=== PATIENT | male | born 1930 | race African-American/Black ===

== ENCOUNTER 2018-09-02 06:05 | Inpatient (IN) ==
[2018-09-02] MEDS ORDERED: Heparin 10,000 UNITS/10 ML Vial (for IV use) IV.PUSH STA (06:19)
[2018-09-02] MEDS ORDERED: Nitroglycerin Drip Premix 50 MG/250 ML BOTTLE IV.CONT PRN ×2 (06:29→12:30)
[2018-09-02] MEDS ORDERED: Sod Chloride 0.9% Inj 1,000 ML IV.SIG SCH (06:30)
--- NOTE | 2018-09-02 06:36 | XR ---
EXAM DATE: 09/02/2018 6:34 AM EST AGE/SEX: 88 years / Male INDICATIONS: Difficulty breathing today. CLINICAL DATA: This is the patient's initial encounter. Patient reports that signs and symptoms have been present for 1 day and indicates a pain score of Nonresponsive. MEDICAL/SURGICAL HISTORY: Non-responsive. Non-responsive. COMPARISON: No prior exams available for comparison. FINDINGS: The heart size is enlarged. The lungs demonstrate diffuse consolidation. There is blunting of the cos tophrenic angles bilaterally. CONCLUSION: Diffuse consolidation likely related to diffuse processes such as edema. Blunting of the costophrenic angles suggestive of mild effusions. Electronically signed by: Law Bills MD Board Certified Radiologist 09/02/2018 6:35 AM EST
[2018-09-02 06:42] LABS: Baso % (Auto) 0.4 % (0.0-2.0); Eos # (Auto) 0.1 th/mm3 (0.0-0.4); Eos % (Auto) 2.3 % (0.0-4.0); Hematocrit 43.1 % (39.0-51.0); Hemoglobin 14.5 gm/dL (13.0-17.0); Lymph # (Auto) 3.2 th/mm3 (1.0-4.8); Mean Corpuscular HGB Conc 33.6 % (32.0-36.0); Mean Corpuscular Hemoglobin 28.9 pg (27.0-34.0); Mean Corpuscular Volume 85.9 fL (80.0-100.0); Mean Platelet Volume 8.8 fL (7.0-11.0); Mono # (Auto) 0.6 th/mm3 (0.0-0.9); Mono % (Auto) 9.8 % (0.0-8.0); Neut % (Auto) 33.5 % (16.0-70.0); Platelet Count 127 th/mm3 (150-450); Red Blood Count 5.01 mil/mm3 (4.50-5.90); White Blood Count 5.9 th/mm3 (4.0-11.0)
[2018-09-02 06:50] LABS: ABG Base Excess -1.5 mmol/L (-2-2); ABG PCO2 103 mmHg (38-42); ABG PO2 83 mmHg (61-120)
[2018-09-02 06:53] LABS: Prothrombin Time 10.5 sec (9.8-11.6)
[2018-09-02] MEDS ORDERED: Etomidate Inj 40 MG/20 ML Vial IV.PUSH ONE (06:56)
[2018-09-02 06:58] LABS: Alanine Aminotransferase 29 U/L (12-78); Albumin 3.9 g/dL (3.4-5.0); Anion Gap 6 meq/L (5-15); Aspartate Aminotransferase 31 U/L (15-37); Blood Urea Nitrogen 27 mg/dL (7-18); Calcium 8.4 mg/dL (8.5-10.1); Calcium 8.5 mg/dL (8.5-10.1); Carbon Dioxide 27.3 meq/L (21.0-32.0); Chloride 108 meq/L (98-107); Glomerular Filtration Rate 33 mL/min (>89); Glucose,Random 198 mg/dL (74-106); Magnesium 2.3 mg/dL (1.5-2.5); Potassium 4.2 meq/L (3.5-5.1); Sodium 141 meq/L (136-145)
[2018-09-02 07:01] LABS: Creatine Kinase 213 U/L (39-308); Troponin I 0.15 ng/mL (0.02-0.05)
[2018-09-02 07:02] LABS: Alkaline Phosphatase 101 U/L (45-117); Total Protein 8.8 g/dL (6.4-8.2); Troponin I 0.14 ng/mL (0.02-0.05)
[2018-09-02] MEDS ORDERED: Propofol 1000 mg/100 ml Inj 1,000 MG/100 ML BOTTLE IV.CONT PRN (07:11)
[2018-09-02 07:13] LABS: Creatine Kinase MB 1.8 ng/mL (0.5-3.6)
--- NOTE | 2018-09-02 07:40 | ED ---
HPI General Chief Complaint: Chest Pain Stated Complaint: Medical Time Seen by Provider: 09/02/18 06:12 Source: patient and other ([facility] staff) Mode of arrival: wheelchair Limitations: other History of Present Illness HPI narrative: 88-year-old male presents to the emergency department from hospital floor where he is visiting his hospitalized for evaluation of chest pain shortness of breath and marked diaphoresis. Patient with history of CHF. Patient with history of hypertension. No prior history of myocardial infarction. Patient with severe chest pain. Patient markedly dyspneic and diaphoretic. Patient unable to provide any further history. Patient admitted and placed on supplemental oxygen as identified to have low O2 saturations upon initial vital signs. Hospital staff presents with patient as patient's O2 saturation 87% with tachycardia tachypnea and hypertension. Son at bedside able to confirm history of hypertension CHF but otherwise does not know his father's medications. MD complaint: Reports chest pain STEMI Alert: Yes Onset (ago): minute(s) (30) Time: 05:15 Duration: constant and progressively worsening Onset: during rest Pain location: Reports left chest Severity: severe (unable to quantitate) Severity scale (1-10): 10 Quality: Reports other ("pain") Pain radiation: Reports none Relieving factors: nothing Exacerbating factors: nothing Context: Denies recent illness, recent surgery, recent immobilization, recent travel, trauma/injury, new medications and history of DVT/PE Associated symptoms: Reports diaphoresis (severe) and dyspnea (severe); Denies nausea, vomiting, sense of impending doom, syncope, palpitations, fever, cough and leg swelling Treatments prior to arrival chest pain: Reports none Related Data Home Medications Medication Instructions Recorded Confirmed amlodipine 5 mg PO DAILY 09/02/18 09/02/18 carvedilol 3.125 mg PO BID 09/02/18 09/02/18 furosemide [Lasix] 40 mg PO BID 09/02/18 09/02/18 glipizide 5 mg PO DAILY 09/02/18 09/02/18 levothyroxine [Synthroid] 88 mcg PO DAILY 09/02/18 09/02/18 potassium chloride 10 meq PO DAILY 09/02/18 09/02/18 Allergies Allergy/AdvReac Type Severity Reaction Status Date / Time aspirin Allergy Severe Bleeding Verified 09/02/18 16:03 diclofenac Allergy Severe Hives Verified 09/02/18 07:58 etodolac Allergy Severe Hives Verified 09/02/18 07:58 flurbiprofen Allergy Severe Hives Verified 09/02/18 07:58 ibuprofen Allergy Severe Hives Verified 09/02/18 07:58 indomethacin Allergy Severe Hives Verified 09/02/18 07:58 ketoprofen Allergy Severe Hives Verified 09/02/18 07:58 ketorolac Allergy Severe Hives Verified 09/02/18 07:58 naproxen Allergy Severe Hives Verified 09/02/18 07:58 NSAIDS (Non-Steroidal Allergy Severe Bleeding Verified 09/02/18 16:03 Anti-Inflamma oxaprozin Allergy Severe Hives Verified 09/02/18 07:58 Review of Systems ROS: all other systems reviewed are negative PMFSH Medical History Medical History CHF (congestive heart failure) (Acute) Diabetes (Acute) HTN (hypertension) (Acute) Hypothyroid (Acute) Lower extremity edema (Acute) Surgical History Surgical History History of gonzales (Acute) History of cholecystectomy (Acute) History of fusion of cervical spine (Acute) History of right inguinal hernia repair (Acute) Family History Family History Other Family history of CHF (congestive heart failure) Social History Social History Substance History: No History of Abuse Second Hand Smoke Exposure: No Smoking Status: Never smoker How Often Do You Have a Drink Containing Alcohol: Never Recent Travel in [facility] within the Last 8 Weeks: No Recent Out of Country Travel within the Last 8 Weeks: No Immunization History Tetanus Immunization: Unsure Exam Narrative Exam Narrative: GENERAL: Well-nourished, well-developed patient; in marked respiratory distress with significant diaphoresis and work of breathing unable to articulate/communicate except for simple nodding and occasional yes no answer. Room air O2 sat 87% with marked hypertensive blood pressure SKIN: Focused skin assessment warm/dry. HEAD: Normocephalic. EYES: No scleral icterus. No injection or drainage. NECK: Supple, trachea midline. No JVD or lymphadenopathy. CARDIOVASCULAR: Regular rate and rhythm without murmurs, gallops, or rubs. RESPIRATORY: Breath sounds equal bilaterally. No accessory muscle use. GASTROINTESTINAL: Abdomen soft, non-tender, nondistended. MUSCULOSKELETAL: No cyanosis, or edema. BACK: Nontender without obvious deformity. No CVA tenderness. Procedures Intubation Time Out Performed: Yes Sedative: etomidate Mg Given: 20 Paralytic: succinylcholine Mg Given: 10 Laryngoscope: Yaya ET Tube Size: 8 ET Tube Uncuffed: No Tube Secured Depth (cm): 24 Tube Secured Location: lips Tube Placement Confirmation: visualized tube passing through cords, equal breath sounds bilaterally, no breath sounds over epigastrium and confirmation by capnometry Patient Tolerated Procedure: well Intubation Complications: none Course Initial Documented Vital Signs Temperature 98.8 F 09/02/18 06:10 Pulse Rate 112 H 09/02/18 06:10 Respiratory Rate 40 H 09/02/18 06:10 Blood Pressure 226/135 H 09/02/18 06:10 Pulse Oximetry 87 L 09/02/18 06:10 Last Documented Vital Signs Temperature 97.9 F 09/07/18 04:00 Pulse Rate 66 09/07/18 04:00 Respiratory Rate 18 09/07/18 04:00 Blood Pressure 143/70 H 09/07/18 04:00 Pulse Oximetry 98 09/07/18 04:00 Critical Care Time Critical Care Time: Yes Total Critical Care Time: 40 Attestation: Aggregate critical care time was 40 minutes. Time to perform other separately billable procedures was not included in the critical care time. My time did not include minutes spent treating any other patients simultaneously or on activities that did not directly contribute to the patient's treatment. The services I provided to this patient were to treat and/or prevent clinically significant deterioration that could result in: Respiratory arrest, cardiogenic shock, I provided critical care services requiring my management, as noted below: Chart data review, documentation time, medication orders and management, vital sign assessments/reviewing monitor data, ordering and reviewing lab tests, ordering and interpreting/reviewing x-rays and diagnostic studies, care of the patient and discussion of the patient with the admitting physicians. Medical Decision Making MDM Narrative Medical decision making narrative: 88-year-old male in acute respiratory distress with marked diaphoresis diminished breath sounds with few scarce expiratory wheeze expiratory crackles. Patient presents and congestive heart failure with flash pulmonary edema with complaint of severe left-sided chest pain nonradiating. Patient with history of hypertension dyslipidemia and diabetes. EKG shows evidence of septal Q waves but ST elevation was noted in V2 and patient presents for acute coronary syndrome with CHF concerning for possible [place] STEMI alert was called and patient's case was discussed with on- call STEMI alert physician Dr. Vaca who has had a chance to review the EKG I does not feel that at this time patient meets stimulant criteria and states that at this time we will not take patient to Corporate Safety Manager and would like patient to proceed with management as initiated in the emergency department with IV nitroglycerin oxygen support Lasix therapy is aware patient is unable to take aspirin heparin will be initiated. Patient is on BiPAP and has not show any evidence of improvement ABG shows pH of 7.06 pCO2 103 pO2 83 0n 100% fio2; as patient was not improving and showing evidence of deterioration intubation was discussed with patient's by phone and son at bedside as patient is unable to make this decision at this time is determined that she would like to proceed with intubation. Patient tolerated procedure well chest x-ray shows worsening of vascular congestion and pulmonary edema. Patient's case discussed with biometrics instructor Dr. Vasquez who graciously accepts the patient for admission. Medical Screen Exam Complete: Yes Emergency Medical Condition: Yes Differential Diagnosis Differential Diagnosis: Acute respiratory failure, CHF, [place], hypertensive crisis , PE Medical Records Medical records reviewed: Yes I reviewed the patient's medical records. Lab Data Lab results reviewed: Yes I reviewed the patient's lab results. Result diagrams: 09/06/18 16:00 09/06/18 16:00 Lab Results 09/02/18 09/02/18 09/02/18 Range/Units 06:16 06:25 06:25 WBC 5.9 (4.0-11.0) th/mm3 RBC 5.01 (4.50-5.90) mil/mm3 Hgb 14.5 (13.0-17.0) gm/dL POC Hgb (Calc) (13.0-17.0) g/dL Hct 43.1 (39.0-51.0) % POC Hct (39-51.0) % MCV 85.9 (80.0-100.0) fL MCH 28.9 (27.0-34.0) pg MCHC 33.6 (32.0-36.0) % RDW 17.0 (11.6-17.2) % Plt Count 127 L (150-450) th/mm3 MPV 8.8 (7.0-11.0) fL Prelim Diff (Auto) Neut % (Auto) 33.5 (16.0-70.0) % Lymph % (Auto) 54.0 H (9.0-44.0) % [place] % (Auto) 9.8 H (0.0-8.0) % Eos % (Auto) 2.3 (0.0-4.0) % Baso % (Auto) 0.4 (0.0-2.0) % Neut # (Auto) 2.0 (1.8-7.7) th/mm3 Lymph # (Auto) 3.2 (1.0-4.8) th/mm3 [place] # (Auto) 0.6 (0.0-0.9) th/mm3 Eos # (Auto) 0.1 (0.0-0.4) th/mm3 Baso # (Auto) 0.0 (0.0-0.2) th/mm3 WBC Differential . Diff Scan Differential Comment Auto diff final Platelet Estimate (Normal) Platelet Morphology (Normal) Ovalocytes (None) PT (9.8-11.6) sec INR Ratio APTT (23.4-31.7) sec Puncture Site Patient Temperature O2 Saturation (90-100) % ABG pH (7.380-7.420) ABG pCO2 (38-42) mmHg ABG pO2 (61-120) mmHg ABG HCO3 (22-26) mmol/L ABG O2 Content (12.0-20.0) Vol % ABG Base Excess (-2-2) mmol/L ABG Methemoglobin (0-2) % Jairo Test Hemoglobin (12.0-16.0) G/DL Carboxyhemoglobin (0-4) % O2 Delivery Device Vent Setting Inspired O2 % Critical Value POC Sodium (137-144) mmol/L Sodium (136-145) meq/L POC Potassium (3.6-5.0) mmol/L Potassium (3.5-5.1) meq/L POC Chloride (102-111) mmol/L Chloride (98-107) meq/L Carbon Dioxide (21.0-32.0) meq/L Anion Gap (5-15) meq/L POC BUN (5-21) mg/dL BUN (7-18) mg/dL Creatinine (0.60-1.30) mg/dL POC Creatinine (0.6-1.3) mg/dL Estimated GFR (>89) mL/min POC Glucose 167 H (68-110) mg/dl Random Glucose (74-106) mg/dL Hemoglobin A1c (4.3-6.0) % Lactic Acid (0.4-2.0) mmol/L Calcium (8.5-10.1) mg/dL Phosphorus (2.5-4.9) mg/dL Magnesium (1.5-2.5) mg/dL Total Bilirubin (0.2-1.0) mg/dL AST (15-37) U/L ALT (12-78) U/L Alkaline Phosphatase (45-117) U/L Ammonia (11-32) mcmol/L Total Creatine Kinase (39-308) U/L CK-MB (CK-2) (0.5-3.6) ng/mL Troponin I (0.02-0.05) ng/mL B-Natriuretic Peptide 707 H (0-100) pg/mL Total Protein (6.4-8.2) g/dL Albumin (3.4-5.0) g/dL Triglycerides (42-150) mg/dL Cholesterol (120-200) mg/dL LDL Cholesterol, Calc (0-99) mg/dL HDL Cholesterol (40.0-60.0) mg/dL Cholesterol/HDL Ratio Ratio Lipase (73-393) U/L TSH Urine Eosinophils (None Seen) /HPF Ur Random Creatinine (27-300) mg/dL Nasal Screen MRSA (PCR) (Negative) 09/02/18 09/02/18 09/02/18 Range/Units 06:25 06:25 06:25 WBC (4.0-11.0) th/mm3 RBC (4.50-5.90) mil/mm3 Hgb (13.0-17.0) gm/dL POC Hgb (Calc) 16.0 (13.0-17.0) g/dL Hct (39.0-51.0) % POC Hct 47.0 (39-51.0) % MCV (80.0-100.0) fL MCH (27.0-34.0) pg MCHC (32.0-36.0) % RDW (11.6-17.2) % Plt Count (150-450) th/mm3 MPV (7.0-11.0) fL Prelim Diff (Auto) Neut % (Auto) (16.0-70.0) % Lymph % (Auto) (9.0-44.0) % [place] % (Auto) (0.0-8.0) % Eos % (Auto) (0.0-4.0) % Baso % (Auto) (0.0-2.0) % Neut # (Auto) (1.8-7.7) th/mm3 Lymph # (Auto) (1.0-4.8) th/mm3 [place] # (Auto) (0.0-0.9) th/mm3 Eos # (Auto) (0.0-0.4) th/mm3 Baso # (Auto) (0.0-0.2) th/mm3 WBC Differential Diff Scan Differential Comment Platelet Estimate (Normal) Platelet Morphology (Normal) Ovalocytes (None) PT 10.5 (9.8-11.6) sec INR 1.0 Ratio APTT 26.0 (23.4-31.7) sec Puncture Site Patient Temperature O2 Saturation (90-100) % ABG pH (7.380-7.420) ABG pCO2 (38-42) mmHg ABG pO2 (61-120) mmHg ABG HCO3 (22-26) mmol/L ABG O2 Content (12.0-20.0) Vol % ABG Base Excess (-2-2) mmol/L ABG Methemoglobin (0-2) % Jairo Test Hemoglobin (12.0-16.0) G/DL Carboxyhemoglobin (0-4) % O2 Delivery Device Vent Setting Inspired O2 % Critical Value POC Sodium 158 H* (137-144) mmol/L Sodium 141 (136-145) meq/L POC Potassium 4.4 (3.6-5.0) mmol/L Potassium 4.2 (3.5-5.1) meq/L POC Chloride 102 (102-111) mmol/L Chloride 108 H (98-107) meq/L Carbon Dioxide 27.3 (21.0-32.0) meq/L Anion Gap 6 (5-15) meq/L POC BUN 30 H (5-21) mg/dL BUN 27 H (7-18) mg/dL Creatinine 2.26 H (0.60-1.30) mg/dL POC Creatinine 2.2 H (0.6-1.3) mg/dL Estimated GFR 33 L (>89) mL/min POC Glucose 194 H (68-110) mg/dl Random Glucose 198 H (74-106) mg/dL Hemoglobin A1c (4.3-6.0) % Lactic Acid (0.4-2.0) mmol/L Calcium 8.4 L 8.5 (8.5-10.1) mg/dL Phosphorus (2.5-4.9) mg/dL Magnesium 2.3 (1.5-2.5) mg/dL Total Bilirubin 0.5 (0.2-1.0) mg/dL AST 31 (15-37) U/L ALT 29 (12-78) U/L Alkaline Phosphatase 101 (45-117) U/L Ammonia (11-32) mcmol/L Total Creatine Kinase 213 (39-308) U/L CK-MB (CK-2) 1.8 (0.5-3.6) ng/mL Troponin I 0.14 H 0.15 H (0.02-0.05) ng/mL B-Natriuretic Peptide (0-100) pg/mL Total Protein 8.8 H (6.4-8.2) g/dL Albumin 3.9 (3.4-5.0) g/dL Triglycerides (42-150) mg/dL Cholesterol (120-200) mg/dL LDL Cholesterol, Calc (0-99) mg/dL HDL Cholesterol (40.0-60.0) mg/dL Cholesterol/HDL Ratio Ratio Lipase (73-393) U/L TSH Urine Eosinophils (None Seen) /HPF Ur Random Creatinine (27-300) mg/dL Nasal Screen MRSA (PCR) (Negative) 09/02/18 09/02/18 09/02/18 Range/Units 06:40 08:16 09:30 WBC (4.0-11.0) th/mm3 RBC (4.50-5.90) mil/mm3 Hgb (13.0-17.0) gm/dL POC Hgb (Calc) (13.0-17.0) g/dL Hct (39.0-51.0) % POC Hct (39-51.0) % MCV (80.0-100.0) fL MCH (27.0-34.0) pg MCHC (32.0-36.0) % RDW (11.6-17.2) % Plt Count (150-450) th/mm3 MPV (7.0-11.0) fL Prelim Diff (Auto) Neut % (Auto) (16.0-70.0) % Lymph % (Auto) (9.0-44.0) % [place] % (Auto) (0.0-8.0) % Eos % (Auto) (0.0-4.0) % Baso % (Auto) (0.0-2.0) % Neut # (Auto) (1.8-7.7) th/mm3 Lymph # (Auto) (1.0-4.8) th/mm3 [place] # (Auto) (0.0-0.9) th/mm3 Eos # (Auto) (0.0-0.4) th/mm3 Baso # (Auto) (0.0-0.2) th/mm3 WBC Differential Diff Scan Differential Comment Platelet Estimate (Normal) Platelet Morphology (Normal) Ovalocytes (None) PT (9.8-11.6) sec INR Ratio APTT (23.4-31.7) sec Puncture Site Right radial Patient Temperature 98.6 O2 Saturation 89 L* (90-100) % ABG pH 7.06 L* (7.380-7.420) ABG pCO2 103 H* (38-42) mmHg ABG pO2 83 (61-120) mmHg ABG HCO3 28 H (22-26) mmol/L ABG O2 Content 18.5 (12.0-20.0) Vol % ABG Base Excess -1.5 (-2-2) mmol/L ABG Methemoglobin 1.0 (0-2) % Jairo Test Present Hemoglobin 14.8 (12.0-16.0) G/DL Carboxyhemoglobin 0.2 (0-4) % O2 Delivery Device Bipap Vent Setting Ipap15 / epap5 Inspired O2 100 % Critical Value Yes POC Sodium (137-144) mmol/L Sodium (136-145) meq/L POC Potassium (3.6-5.0) mmol/L Potassium (3.5-5.1) meq/L POC Chloride (102-111) mmol/L Chloride (98-107) meq/L Carbon Dioxide (21.0-32.0) meq/L Anion Gap (5-15) meq/L POC BUN (5-21) mg/dL BUN (7-18) mg/dL Creatinine (0.60-1.30) mg/dL POC Creatinine (0.6-1.3) mg/dL Estimated GFR (>89) mL/min POC Glucose 220 H (68-110) mg/dl Random Glucose (74-106) mg/dL Hemoglobin A1c (4.3-6.0) % Lactic Acid (0.4-2.0) mmol/L Calcium (8.5-10.1) mg/dL Phosphorus (2.5-4.9) mg/dL Magnesium (1.5-2.5) mg/dL Total Bilirubin (0.2-1.0) mg/dL AST (15-37) U/L ALT (12-78) U/L Alkaline Phosphatase (45-117) U/L Ammonia (11-32) mcmol/L Total Creatine Kinase (39-308) U/L CK-MB (CK-2) (0.5-3.6) ng/mL Troponin I (0.02-0.05) ng/mL B-Natriuretic Peptide (0-100) pg/mL Total Protein (6.4-8.2) g/dL Albumin (3.4-5.0) g/dL Triglycerides (42-150) mg/dL Cholesterol (120-200) mg/dL LDL Cholesterol, Calc (0-99) mg/dL HDL Cholesterol (40.0-60.0) mg/dL Cholesterol/HDL Ratio Ratio Lipase (73-393) U/L TSH Urine Eosinophils (None Seen) /HPF Ur Random Creatinine (27-300) mg/dL Nasal Screen MRSA (PCR) Not detected (Negative) 09/02/18 09/02/18 09/02/18 Range/Units 09:54 11:40 11:40 WBC (4.0-11.0) th/mm3 RBC (4.50-5.90) mil/mm3 Hgb (13.0-17.0) gm/dL POC Hgb (Calc) (13.0-17.0) g/dL Hct (39.0-51.0) % POC Hct (39-51.0) % MCV (80.0-100.0) fL MCH (27.0-34.0) pg MCHC (32.0-36.0) % RDW (11.6-17.2) % Plt Count (150-450) th/mm3 MPV (7.0-11.0) fL Prelim Diff (Auto) Neut % (Auto) (16.0-70.0) % Lymph % (Auto) (9.0-44.0) % [place] % (Auto) (0.0-8.0) % Eos % (Auto) (0.0-4.0) % Baso % (Auto) (0.0-2.0) % Neut # (Auto) (1.8-7.7) th/mm3 Lymph # (Auto) (1.0-4.8) th/mm3 [place] # (Auto) (0.0-0.9) th/mm3 Eos # (Auto) (0.0-0.4) th/mm3 Baso # (Auto) (0.0-0.2) th/mm3 WBC Differential Diff Scan Differential Comment Platelet Estimate (Normal) Platelet Morphology (Normal) Ovalocytes (None) PT (9.8-11.6) sec INR Ratio APTT (23.4-31.7) sec Puncture Site Art line Patient Temperature 98.6 O2 Saturation 97 (90-100) % ABG pH 7.24 L* (7.380-7.420) ABG pCO2 53 H* (38-42) mmHg ABG pO2 196 H (61-120) mmHg ABG HCO3 22 (22-26) mmol/L ABG O2 Content 16.9 (12.0-20.0) Vol % ABG Base Excess -4.2 L (-2-2) mmol/L ABG Methemoglobin 1.7 (0-2) % Jairo Test Present Hemoglobin 12.2 (12.0-16.0) G/DL Carboxyhemoglobin 0.5 (0-4) % O2 Delivery Device Ventilator Vent Setting Inspired O2 100 % Critical Value Yes POC Sodium (137-144) mmol/L Sodium (136-145) meq/L POC Potassium (3.6-5.0) mmol/L Potassium (3.5-5.1) meq/L POC Chloride (102-111) mmol/L Chloride (98-107) meq/L Carbon Dioxide (21.0-32.0) meq/L Anion Gap (5-15) meq/L POC BUN (5-21) mg/dL BUN (7-18) mg/dL Creatinine (0.60-1.30) mg/dL POC Creatinine (0.6-1.3) mg/dL Estimated GFR (>89) mL/min POC Glucose (68-110) mg/dl Random Glucose (74-106) mg/dL Hemoglobin A1c (4.3-6.0) % Lactic Acid (0.4-2.0) mmol/L Calcium (8.5-10.1) mg/dL Phosphorus (2.5-4.9) mg/dL Magnesium (1.5-2.5) mg/dL Total Bilirubin (0.2-1.0) mg/dL AST (15-37) U/L ALT (12-78) U/L Alkaline Phosphatase (45-117) U/L Ammonia (11-32) mcmol/L Total Creatine Kinase (39-308) U/L CK-MB (CK-2) (0.5-3.6) ng/mL Troponin I (0.02-0.05) ng/mL B-Natriuretic Peptide (0-100) pg/mL Total Protein (6.4-8.2) g/dL Albumin (3.4-5.0) g/dL Triglycerides (42-150) mg/dL Cholesterol (120-200) mg/dL LDL Cholesterol, Calc (0-99) mg/dL HDL Cholesterol (40.0-60.0) mg/dL Cholesterol/HDL Ratio Ratio Lipase (73-393) U/L TSH Urine Eosinophils None seen (None Seen) /HPF Ur Random Creatinine 62 (27-300) mg/dL Nasal Screen MRSA (PCR) (Negative) 09/02/18 09/02/18 09/02/18 Range/Units 11:52 11:52 11:52 WBC (4.0-11.0) th/mm3 RBC (4.50-5.90) mil/mm3 Hgb (13.0-17.0) gm/dL POC Hgb (Calc) (13.0-17.0) g/dL Hct (39.0-51.0) % POC Hct (39-51.0) % MCV (80.0-100.0) fL MCH (27.0-34.0) pg MCHC (32.0-36.0) % RDW (11.6-17.2) % Plt Count (150-450) th/mm3 MPV (7.0-11.0) fL Prelim Diff (Auto) Neut % (Auto) (16.0-70.0) % Lymph % (Auto) (9.0-44.0) % [place] % (Auto) (0.0-8.0) % Eos % (Auto) (0.0-4.0) % Baso % (Auto) (0.0-2.0) % Neut # (Auto) (1.8-7.7) th/mm3 Lymph # (Auto) (1.0-4.8) th/mm3 [place] # (Auto) (0.0-0.9) th/mm3 Eos # (Auto) (0.0-0.4) th/mm3 Baso # (Auto) (0.0-0.2) th/mm3 WBC Differential Diff Scan Differential Comment Platelet Estimate (Normal) Platelet Morphology (Normal) Ovalocytes (None) PT (9.8-11.6) sec INR Ratio APTT (23.4-31.7) sec Puncture Site Patient Temperature O2 Saturation (90-100) % ABG pH (7.380-7.420) ABG pCO2 (38-42) mmHg ABG pO2 (61-120) mmHg ABG HCO3 (22-26) mmol/L ABG O2 Content (12.0-20.0) Vol % ABG Base Excess (-2-2) mmol/L ABG Methemoglobin (0-2) % Jairo Test Hemoglobin (12.0-16.0) G/DL Carboxyhemoglobin (0-4) % O2 Delivery Device Vent Setting Inspired O2 % Critical Value POC Sodium (137-144) mmol/L Sodium (136-145) meq/L POC Potassium (3.6-5.0) mmol/L Potassium (3.5-5.1) meq/L POC Chloride (102-111) mmol/L Chloride (98-107) meq/L Carbon Dioxide (21.0-32.0) meq/L Anion Gap (5-15) meq/L POC BUN (5-21) mg/dL BUN (7-18) mg/dL Creatinine (0.60-1.30) mg/dL POC Creatinine (0.6-1.3) mg/dL Estimated GFR (>89) mL/min POC Glucose (68-110) mg/dl Random Glucose (74-106) mg/dL Hemoglobin A1c 7.2 H (4.3-6.0) % Lactic Acid 1.0 (0.4-2.0) mmol/L Calcium (8.5-10.1) mg/dL Phosphorus (2.5-4.9) mg/dL Magnesium (1.5-2.5) mg/dL Total Bilirubin (0.2-1.0) mg/dL AST (15-37) U/L ALT (12-78) U/L Alkaline Phosphatase (45-117) U/L Ammonia (11-32) mcmol/L Total Creatine Kinase (39-308) U/L CK-MB (CK-2) (0.5-3.6) ng/mL Troponin I 0.17 H (0.02-0.05) ng/mL B-Natriuretic Peptide (0-100) pg/mL Total Protein (6.4-8.2) g/dL Albumin (3.4-5.0) g/dL Triglycerides (42-150) mg/dL Cholesterol (120-200) mg/dL LDL Cholesterol, Calc (0-99) mg/dL HDL Cholesterol (40.0-60.0) mg/dL Cholesterol/HDL Ratio Ratio Lipase 233 (73-393) U/L TSH Urine Eosinophils (None Seen) /HPF Ur Random Creatinine (27-300) mg/dL Nasal Screen MRSA (PCR) (Negative) 09/02/18 09/02/18 09/02/18 Range/Units 12:20 15:32 15:39 WBC (4.0-11.0) th/mm3 RBC (4.50-5.90) mil/mm3 Hgb (13.0-17.0) gm/dL POC Hgb (Calc) (13.0-17.0) g/dL Hct (39.0-51.0) % POC Hct (39-51.0) % MCV (80.0-100.0) fL MCH (27.0-34.0) pg MCHC (32.0-36.0) % RDW (11.6-17.2) % Plt Count (150-450) th/mm3 MPV (7.0-11.0) fL Prelim Diff (Auto) Neut % (Auto) (16.0-70.0) % Lymph % (Auto) (9.0-44.0) % [place] % (Auto) (0.0-8.0) % Eos % (Auto) (0.0-4.0) % Baso % (Auto) (0.0-2.0) % Neut # (Auto) (1.8-7.7) th/mm3 Lymph # (Auto) (1.0-4.8) th/mm3 [place] # (Auto) (0.0-0.9) th/mm3 Eos # (Auto) (0.0-0.4) th/mm3 Baso # (Auto) (0.0-0.2) th/mm3 WBC Differential Diff Scan Differential Comment Platelet Estimate (Normal) Platelet Morphology (Normal) Ovalocytes (None) PT (9.8-11.6) sec INR Ratio APTT 49.5 H D (23.4-31.7) sec Puncture Site Art line Patient Temperature 98.6 O2 Saturation 93 (90-100) % ABG pH 7.34 L (7.380-7.420) ABG pCO2 41 (38-42) mmHg ABG pO2 85 (61-120) mmHg ABG HCO3 21 L (22-26) mmol/L ABG O2 Content 16.1 (12.0-20.0) Vol % ABG Base Excess -3.4 L (-2-2) mmol/L ABG Methemoglobin 1.8 (0-2) % [place] Test Present Hemoglobin 12.2 (12.0-16.0) G/DL Carboxyhemoglobin 0.6 (0-4) % O2 Delivery Device Ventilator Vent Setting Inspired O2 80 % Critical Value No POC Sodium (137-144) mmol/L Sodium (136-145) meq/L POC Potassium (3.6-5.0) mmol/L Potassium (3.5-5.1) meq/L POC Chloride (102-111) mmol/L Chloride (98-107) meq/L Carbon Dioxide (21.0-32.0) meq/L Anion Gap (5-15) meq/L POC BUN (5-21) mg/dL BUN (7-18) mg/dL Creatinine (0.60-1.30) mg/dL POC Creatinine (0.6-1.3) mg/dL Estimated GFR (>89) mL/min POC Glucose 176 H (68-110) mg/dl Random Glucose (74-106) mg/dL Hemoglobin A1c (4.3-6.0) % Lactic Acid (0.4-2.0) mmol/L Calcium (8.5-10.1) mg/dL Phosphorus (2.5-4.9) mg/dL Magnesium (1.5-2.5) mg/dL Total Bilirubin (0.2-1.0) mg/dL AST (15-37) U/L ALT (12-78) U/L Alkaline Phosphatase (45-117) U/L Ammonia (11-32) mcmol/L Total Creatine Kinase (39-308) U/L CK-MB (CK-2) (0.5-3.6) ng/mL Troponin I (0.02-0.05) ng/mL B-Natriuretic Peptide (0-100) pg/mL Total Protein (6.4-8.2) g/dL Albumin (3.4-5.0) g/dL Triglycerides (42-150) mg/dL Cholesterol (120-200) mg/dL LDL Cholesterol, Calc (0-99) mg/dL HDL Cholesterol (40.0-60.0) mg/dL Cholesterol/HDL Ratio Ratio Lipase (73-393) U/L TSH Urine Eosinophils (None Seen) /HPF Ur Random Creatinine (27-300) mg/dL Nasal Screen MRSA (PCR) (Negative) 09/02/18 09/02/18 09/02/18 Range/Units 18:46 19:28 21:15 WBC (4.0-11.0) th/mm3 RBC (4.50-5.90) mil/mm3 Hgb (13.0-17.0) gm/dL POC Hgb (Calc) (13.0-17.0) g/dL Hct (39.0-51.0) % POC Hct (39-51.0) % MCV (80.0-100.0) fL MCH (27.0-34.0) pg MCHC (32.0-36.0) % RDW (11.6-17.2) % Plt Count (150-450) th/mm3 MPV (7.0-11.0) fL Prelim Diff (Auto) Neut % (Auto) (16.0-70.0) % Lymph % (Auto) (9.0-44.0) % [place] % (Auto) (0.0-8.0) % Eos % (Auto) (0.0-4.0) % Baso % (Auto) (0.0-2.0) % Neut # (Auto) (1.8-7.7) th/mm3 Lymph # (Auto) (1.0-4.8) th/mm3 [place] # (Auto) (0.0-0.9) th/mm3 Eos # (Auto) (0.0-0.4) th/mm3 Baso # (Auto) (0.0-0.2) th/mm3 WBC Differential Diff Scan Differential Comment Platelet Estimate (Normal) Platelet Morphology (Normal) Ovalocytes (None) PT (9.8-11.6) sec INR Ratio APTT (23.4-31.7) sec Puncture Site Patient Temperature O2 Saturation (90-100) % ABG pH (7.380-7.420) ABG pCO2 (38-42) mmHg ABG pO2 (61-120) mmHg ABG HCO3 (22-26) mmol/L ABG O2 Content (12.0-20.0) Vol % ABG Base Excess (-2-2) mmol/L ABG Methemoglobin (0-2) % [place] Test Hemoglobin (12.0-16.0) G/DL Carboxyhemoglobin (0-4) % O2 Delivery Device Vent Setting Inspired O2 % Critical Value POC Sodium (137-144) mmol/L Sodium 141 (136-145) meq/L POC Potassium (3.6-5.0) mmol/L Potassium 3.7 (3.5-5.1) meq/L POC Chloride (102-111) mmol/L Chloride 109 H (98-107) meq/L Carbon Dioxide 23.3 (21.0-32.0) meq/L Anion Gap 9 (5-15) meq/L POC BUN (5-21) mg/dL BUN 32 H (7-18) mg/dL Creatinine 2.43 H (0.60-1.30) mg/dL POC Creatinine (0.6-1.3) mg/dL Estimated GFR 31 L (>89) mL/min POC Glucose 121 H (68-110) mg/dl Random Glucose 140 H (74-106) mg/dL Hemoglobin A1c (4.3-6.0) % Lactic Acid (0.4-2.0) mmol/L Calcium 8.3 L (8.5-10.1) mg/dL Phosphorus (2.5-4.9) mg/dL Magnesium 1.9 (1.5-2.5) mg/dL Total Bilirubin (0.2-1.0) mg/dL AST (15-37) U/L ALT (12-78) U/L Alkaline Phosphatase (45-117) U/L Ammonia 18 (11-32) mcmol/L Total Creatine Kinase (39-308) U/L CK-MB (CK-2) (0.5-3.6) ng/mL Troponin I (0.02-0.05) ng/mL B-Natriuretic Peptide (0-100) pg/mL Total Protein (6.4-8.2) g/dL Albumin (3.4-5.0) g/dL Triglycerides 54 (42-150) mg/dL Cholesterol 165 (120-200) mg/dL LDL Cholesterol, Calc 92 (0-99) mg/dL HDL Cholesterol 62.3 H (40.0-60.0) mg/dL Cholesterol/HDL Ratio 2.64 Ratio Lipase (73-393) U/L TSH Urine Eosinophils (None Seen) /HPF Ur Random Creatinine (27-300) mg/dL Nasal Screen MRSA (PCR) (Negative) 09/02/18 09/02/18 09/02/18 Range/Units 21:15 21:15 21:15 WBC (4.0-11.0) th/mm3 RBC (4.50-5.90) mil/mm3 Hgb (13.0-17.0) gm/dL POC Hgb (Calc) (13.0-17.0) g/dL Hct (39.0-51.0) % POC Hct (39-51.0) % MCV (80.0-100.0) fL MCH (27.0-34.0) pg MCHC (32.0-36.0) % RDW (11.6-17.2) % Plt Count (150-450) th/mm3 MPV (7.0-11.0) fL Prelim Diff (Auto) Neut % (Auto) (16.0-70.0) % Lymph % (Auto) (9.0-44.0) % [place] % (Auto) (0.0-8.0) % Eos % (Auto) (0.0-4.0) % Baso % (Auto) (0.0-2.0) % Neut # (Auto) (1.8-7.7) th/mm3 Lymph # (Auto) (1.0-4.8) th/mm3 [place] # (Auto) (0.0-0.9) th/mm3 Eos # (Auto) (0.0-0.4) th/mm3 Baso # (Auto) (0.0-0.2) th/mm3 WBC Differential Diff Scan Differential Comment Platelet Estimate (Normal) Platelet Morphology (Normal) Ovalocytes (None) PT (9.8-11.6) sec INR Ratio APTT 54.3 H (23.4-31.7) sec Puncture Site Patient Temperature O2 Saturation (90-100) % ABG pH (7.380-7.420) ABG pCO2 (38-42) mmHg ABG pO2 (61-120) mmHg ABG HCO3 (22-26) mmol/L ABG O2 Content (12.0-20.0) Vol % ABG Base Excess (-2-2) mmol/L ABG Methemoglobin (0-2) % [place] Test Hemoglobin (12.0-16.0) G/DL Carboxyhemoglobin (0-4) % O2 Delivery Device Vent Setting Inspired O2 % Critical Value POC Sodium (137-144) mmol/L Sodium (136-145) meq/L POC Potassium (3.6-5.0) mmol/L Potassium (3.5-5.1) meq/L POC Chloride (102-111) mmol/L Chloride (98-107) meq/L Carbon Dioxide (21.0-32.0) meq/L Anion Gap (5-15) meq/L POC BUN (5-21) mg/dL BUN (7-18) mg/dL Creatinine (0.60-1.30) mg/dL POC Creatinine (0.6-1.3) mg/dL Estimated GFR (>89) mL/min POC Glucose (68-110) mg/dl Random Glucose (74-106) mg/dL Hemoglobin A1c (4.3-6.0) % Lactic Acid (0.4-2.0) mmol/L Calcium (8.5-10.1) mg/dL Phosphorus 2.6 (2.5-4.9) mg/dL Magnesium (1.5-2.5) mg/dL Total Bilirubin (0.2-1.0) mg/dL AST (15-37) U/L ALT (12-78) U/L Alkaline Phosphatase (45-117) U/L Ammonia (11-32) mcmol/L Total Creatine Kinase 121 (39-308) U/L CK-MB (CK-2) (0.5-3.6) ng/mL Troponin I 0.26 H (0.02-0.05) ng/mL B-Natriuretic Peptide (0-100) pg/mL Total Protein (6.4-8.2) g/dL Albumin (3.4-5.0) g/dL Triglycerides (42-150) mg/dL Cholesterol (120-200) mg/dL LDL Cholesterol, Calc (0-99) mg/dL HDL Cholesterol (40.0-60.0) mg/dL Cholesterol/HDL Ratio Ratio Lipase (73-393) U/L TSH Urine Eosinophils (None Seen) /HPF Ur Random Creatinine (27-300) mg/dL Nasal Screen MRSA (PCR) (Negative) 09/02/18 09/03/18 09/03/18 Range/Units 23:59 00:15 03:45 WBC 5.6 (4.0-11.0) th/mm3 RBC 3.98 L (4.50-5.90) mil/mm3 Hgb 11.4 L D (13.0-17.0) gm/dL POC Hgb (Calc) (13.0-17.0) g/dL Hct 33.3 L (39.0-51.0) % POC Hct (39-51.0) % MCV 83.7 (80.0-100.0) fL MCH 28.6 (27.0-34.0) pg MCHC 34.2 (32.0-36.0) % RDW 16.7 (11.6-17.2) % Plt Count 107 L (150-450) th/mm3 MPV 8.5 (7.0-11.0) fL Prelim Diff (Auto) Neut % (Auto) 77.4 H (16.0-70.0) % Lymph % (Auto) 16.0 (9.0-44.0) % [place] % (Auto) 6.5 (0.0-8.0) % Eos % (Auto) 0.0 (0.0-4.0) % Baso % (Auto) 0.1 (0.0-2.0) % Neut # (Auto) 4.3 (1.8-7.7) th/mm3 Lymph # (Auto) 0.9 L (1.0-4.8) th/mm3 [place] # (Auto) 0.4 (0.0-0.9) th/mm3 Eos # (Auto) 0.0 (0.0-0.4) th/mm3 Baso # (Auto) 0.0 (0.0-0.2) th/mm3 WBC Differential . Diff Scan Differential Comment Auto diff final Platelet Estimate (Normal) Platelet Morphology (Normal) Ovalocytes (None) PT (9.8-11.6) sec INR Ratio APTT (23.4-31.7) sec Puncture Site Patient Temperature O2 Saturation (90-100) % ABG pH (7.380-7.420) ABG pCO2 (38-42) mmHg ABG pO2 (61-120) mmHg ABG HCO3 (22-26) mmol/L ABG O2 Content (12.0-20.0) Vol % ABG Base Excess (-2-2) mmol/L ABG Methemoglobin (0-2) % [place] Test Hemoglobin (12.0-16.0) G/DL Carboxyhemoglobin (0-4) % O2 Delivery Device Vent Setting Inspired O2 % Critical Value POC Sodium (137-144) mmol/L Sodium (136-145) meq/L POC Potassium (3.6-5.0) mmol/L Potassium (3.5-5.1) meq/L POC Chloride (102-111) mmol/L Chloride (98-107) meq/L Carbon Dioxide (21.0-32.0) meq/L Anion Gap (5-15) meq/L POC BUN (5-21) mg/dL BUN (7-18) mg/dL Creatinine (0.60-1.30) mg/dL POC Creatinine (0.6-1.3) mg/dL Estimated GFR (>89) mL/min POC Glucose 155 H (68-110) mg/dl Random Glucose (74-106) mg/dL Hemoglobin A1c (4.3-6.0) % Lactic Acid (0.4-2.0) mmol/L Calcium (8.5-10.1) mg/dL Phosphorus (2.5-4.9) mg/dL Magnesium (1.5-2.5) mg/dL Total Bilirubin (0.2-1.0) mg/dL AST (15-37) U/L ALT (12-78) U/L Alkaline Phosphatase (45-117) U/L Ammonia (11-32) mcmol/L Total Creatine Kinase (39-308) U/L CK-MB (CK-2) (0.5-3.6) ng/mL Troponin I 0.23 H (0.02-0.05) ng/mL B-Natriuretic Peptide (0-100) pg/mL Total Protein (6.4-8.2) g/dL Albumin (3.4-5.0) g/dL Triglycerides (42-150) mg/dL Cholesterol (120-200) mg/dL LDL Cholesterol, Calc (0-99) mg/dL HDL Cholesterol (40.0-60.0) mg/dL Cholesterol/HDL Ratio Ratio Lipase (73-393) U/L TSH Cancelled Urine Eosinophils (None Seen) /HPF Ur Random Creatinine (27-300) mg/dL Nasal Screen MRSA (PCR) (Negative) 09/03/18 09/03/18 09/03/18 Range/Units 03:45 03:45 03:45 WBC (4.0-11.0) th/mm3 RBC (4.50-5.90) mil/mm3 Hgb (13.0-17.0) gm/dL POC Hgb (Calc) (13.0-17.0) g/dL Hct (39.0-51.0) % POC Hct (39-51.0) % MCV (80.0-100.0) fL MCH (27.0-34.0) pg MCHC (32.0-36.0) % RDW (11.6-17.2) % Plt Count (150-450) th/mm3 MPV (7.0-11.0) fL Prelim Diff (Auto) Neut % (Auto) (16.0-70.0) % Lymph % (Auto) (9.0-44.0) % [place] % (Auto) (0.0-8.0) % Eos % (Auto) (0.0-4.0) % Baso % (Auto) (0.0-2.0) % Neut # (Auto) (1.8-7.7) th/mm3 Lymph # (Auto) (1.0-4.8) th/mm3 [place] # (Auto) (0.0-0.9) th/mm3 Eos # (Auto) (0.0-0.4) th/mm3 Baso # (Auto) (0.0-0.2) th/mm3 WBC Differential Diff Scan Differential Comment Platelet Estimate (Normal) Platelet Morphology (Normal) Ovalocytes (None) PT 12.0 H (9.8-11.6) sec INR 1.2 Ratio APTT 72.8 H D (23.4-31.7) sec Puncture Site Patient Temperature O2 Saturation (90-100) % ABG pH (7.380-7.420) ABG pCO2 (38-42) mmHg ABG pO2 (61-120) mmHg ABG HCO3 (22-26) mmol/L ABG O2 Content (12.0-20.0) Vol % ABG Base Excess (-2-2) mmol/L ABG Methemoglobin (0-2) % [place] Test Hemoglobin (12.0-16.0) G/DL Carboxyhemoglobin (0-4) % O2 Delivery Device Vent Setting Inspired O2 % Critical Value POC Sodium (137-144) mmol/L Sodium 143 (136-145) meq/L POC Potassium (3.6-5.0) mmol/L Potassium 3.8 (3.5-5.1) meq/L POC Chloride (102-111) mmol/L Chloride 109 H (98-107) meq/L Carbon Dioxide 22.9 (21.0-32.0) meq/L Anion Gap 11 (5-15) meq/L POC BUN (5-21) mg/dL BUN 39 H (7-18) mg/dL Creatinine 3.13 H (0.60-1.30) mg/dL POC Creatinine (0.6-1.3) mg/dL Estimated GFR 23 L (>89) mL/min POC Glucose (68-110) mg/dl Random Glucose 166 H (74-106) mg/dL Hemoglobin A1c (4.3-6.0) % Lactic Acid 1.5 (0.4-2.0) mmol/L Calcium 8.0 L (8.5-10.1) mg/dL Phosphorus 3.0 (2.5-4.9) mg/dL Magnesium 1.9 (1.5-2.5) mg/dL Total Bilirubin 0.8 (0.2-1.0) mg/dL AST 20 (15-37) U/L ALT 21 (12-78) U/L Alkaline Phosphatase 57 (45-117) U/L Ammonia (11-32) mcmol/L Total Creatine Kinase (39-308) U/L CK-MB (CK-2) (0.5-3.6) ng/mL Troponin I (0.02-0.05) ng/mL B-Natriuretic Peptide (0-100) pg/mL Total Protein 6.0 L D (6.4-8.2) g/dL Albumin 2.5 L D (3.4-5.0) g/dL Triglycerides (42-150) mg/dL Cholesterol (120-200) mg/dL LDL Cholesterol, Calc (0-99) mg/dL HDL Cholesterol (40.0-60.0) mg/dL Cholesterol/HDL Ratio Ratio Lipase (73-393) U/L TSH 0.614 Urine Eosinophils (None Seen) /HPF Ur Random Creatinine (27-300) mg/dL Nasal Screen MRSA (PCR) (Negative) 09/03/18 09/03/1818 Range/Units 03:45 05:20 07:55 WBC (4.0-11.0) th/mm3 RBC (4.50-5.90) mil/mm3 Hgb (13.0-17.0) gm/dL POC Hgb (Calc) (13.0-17.0) g/dL Hct (39.0-51.0) % POC Hct (39-51.0) % MCV (80.0-100.0) fL MCH (27.0-34.0) pg MCHC (32.0-36.0) % RDW (11.6-17.2) % Plt Count (150-450) th/mm3 MPV (7.0-11.0) fL Prelim Diff (Auto) Neut % (Auto) (16.0-70.0) % Lymph % (Auto) (9.0-44.0) % [place] % (Auto) (0.0-8.0) % Eos % (Auto) (0.0-4.0) % Baso % (Auto) (0.0-2.0) % Neut # (Auto) (1.8-7.7) th/mm3 Lymph # (Auto) (1.0-4.8) th/mm3 [place] # (Auto) (0.0-0.9) th/mm3 Eos # (Auto) (0.0-0.4) th/mm3 Baso # (Auto) (0.0-0.2) th/mm3 WBC Differential Diff Scan Differential Comment Platelet Estimate (Normal) Platelet Morphology (Normal) Ovalocytes (None) PT (9.8-11.6) sec INR Ratio APTT (23.4-31.7) sec Puncture Site Art line Art line Patient Temperature 98.6 98.6 O2 Saturation 97 97 (90-100) % ABG pH 7.55 H* 7.50 H (7.380-7.420) ABG pCO2 25 L 30 L (38-42) mmHg ABG pO2 141 H 183 H (61-120) mmHg ABG HCO3 22 24 (22-26) mmol/L ABG O2 Content 15.7 15.4 (12.0-20.0) Vol % ABG Base Excess -0.3 0.6 (-2-2) mmol/L ABG Methemoglobin 1.7 1.5 (0-2) % [place] Test Present Hemoglobin 11.4 L 11.0 L (12.0-16.0) G/DL Carboxyhemoglobin 0.7 0.8 (0-4) % O2 Delivery Device Ventilator Ventilator Vent Setting Prvc/ac 24 vt 600 Inspired O2 50 50 % Critical Value Yes No POC Sodium (137-144) mmol/L Sodium (136-145) meq/L POC Potassium (3.6-5.0) mmol/L Potassium (3.5-5.1) meq/L POC Chloride (102-111) mmol/L Chloride (98-107) meq/L Carbon Dioxide (21.0-32.0) meq/L Anion Gap (5-15) meq/L POC BUN (5-21) mg/dL BUN (7-18) mg/dL Creatinine (0.60-1.30) mg/dL POC Creatinine (0.6-1.3) mg/dL Estimated GFR (>89) mL/min POC Glucose (68-110) mg/dl Random Glucose (74-106) mg/dL Hemoglobin A1c (4.3-6.0) % Lactic Acid (0.4-2.0) mmol/L Calcium (8.5-10.1) mg/dL Phosphorus (2.5-4.9) mg/dL Magnesium (1.5-2.5) mg/dL Total Bilirubin (0.2-1.0) mg/dL AST (15-37) U/L ALT (12-78) U/L Alkaline Phosphatase (45-117) U/L Ammonia (11-32) mcmol/L Total Creatine Kinase (39-308) U/L CK-MB (CK-2) (0.5-3.6) ng/mL Troponin I 0.19 H (0.02-0.05) ng/mL B-Natriuretic Peptide (0-100) pg/mL Total Protein (6.4-8.2) g/dL Albumin (3.4-5.0) g/dL Triglycerides (42-150) mg/dL Cholesterol (120-200) mg/dL LDL Cholesterol, Calc (0-99) mg/dL HDL Cholesterol (40.0-60.0) mg/dL Cholesterol/HDL Ratio Ratio Lipase (73-393) U/L TSH Urine Eosinophils (None Seen) /HPF Ur Random Creatinine (27-300) mg/dL Nasal Screen MRSA (PCR) (Negative) 09/03/18 09/03/18 09/03/18 Range/Units 10:31 17:13 17:50 WBC (4.0-11.0) th/mm3 RBC (4.50-5.90) mil/mm3 Hgb (13.0-17.0) gm/dL POC Hgb (Calc) (13.0-17.0) g/dL Hct (39.0-51.0) % POC Hct (39-51.0) % MCV (80.0-100.0) fL MCH (27.0-34.0) pg MCHC (32.0-36.0) % RDW (11.6-17.2) % Plt Count (150-450) th/mm3 MPV (7.0-11.0) fL Prelim Diff (Auto) Neut % (Auto) (16.0-70.0) % Lymph % (Auto) (9.0-44.0) % [place] % (Auto) (0.0-8.0) % Eos % (Auto) (0.0-4.0) % Baso % (Auto) (0.0-2.0) % Neut # (Auto) (1.8-7.7) th/mm3 Lymph # (Auto) (1.0-4.8) th/mm3 [place] # (Auto) (0.0-0.9) th/mm3 Eos # (Auto) (0.0-0.4) th/mm3 Baso # (Auto) (0.0-0.2) th/mm3 WBC Differential Diff Scan Differential Comment Platelet Estimate (Normal) Platelet Morphology (Normal) Ovalocytes (None) PT (9.8-11.6) sec INR Ratio APTT 66.1 H (23.4-31.7) sec Puncture Site Patient Temperature O2 Saturation (90-100) % ABG pH (7.380-7.420) ABG pCO2 (38-42) mmHg ABG pO2 (61-120) mmHg ABG HCO3 (22-26) mmol/L ABG O2 Content (12.0-20.0) Vol % ABG Base Excess (-2-2) mmol/L ABG Methemoglobin (0-2) % [place] Test Hemoglobin (12.0-16.0) G/DL Carboxyhemoglobin (0-4) % O2 Delivery Device Vent Setting Inspired O2 % Critical Value POC Sodium (137-144) mmol/L Sodium (136-145) meq/L POC Potassium (3.6-5.0) mmol/L Potassium (3.5-5.1) meq/L POC Chloride (102-111) mmol/L Chloride (98-107) meq/L Carbon Dioxide (21.0-32.0) meq/L Anion Gap (5-15) meq/L POC BUN (5-21) mg/dL BUN (7-18) mg/dL Creatinine (0.60-1.30) mg/dL POC Creatinine (0.6-1.3) mg/dL Estimated GFR (>89) mL/min POC Glucose 172 H (68-110) mg/dl Random Glucose (74-106) mg/dL Hemoglobin A1c (4.3-6.0) % Lactic Acid (0.4-2.0) mmol/L Calcium (8.5-10.1) mg/dL Phosphorus (2.5-4.9) mg/dL Magnesium (1.5-2.5) mg/dL Total Bilirubin (0.2-1.0) mg/dL AST (15-37) U/L ALT (12-78) U/L Alkaline Phosphatase (45-117) U/L Ammonia (11-32) mcmol/L Total Creatine Kinase 92 (39-308) U/L CK-MB (CK-2) (0.5-3.6) ng/mL Troponin I (0.02-0.05) ng/mL B-Natriuretic Peptide (0-100) pg/mL Total Protein (6.4-8.2) g/dL Albumin (3.4-5.0) g/dL Triglycerides (42-150) mg/dL Cholesterol (120-200) mg/dL LDL Cholesterol, Calc (0-99) mg/dL HDL Cholesterol (40.0-60.0) mg/dL Cholesterol/HDL Ratio Ratio Lipase (73-393) U/L TSH Urine Eosinophils (None Seen) /HPF Ur Random Creatinine (27-300) mg/dL Nasal Screen MRSA (PCR) (Negative) 09/04/18 09/04/18 09/04/18 Range/Units 00:15 00:22 04:32 WBC 5.5 (4.0-11.0) th/mm3 RBC 3.75 L (4.50-5.90) mil/mm3 Hgb 10.8 L (13.0-17.0) gm/dL POC Hgb (Calc) (13.0-17.0) g/dL Hct 32.0 L (39.0-51.0) % POC Hct (39-51.0) % MCV 85.3 (80.0-100.0) fL MCH 28.7 (27.0-34.0) pg MCHC 33.7 (32.0-36.0) % RDW 17.2 (11.6-17.2) % Plt Count 98 L (150-450) th/mm3 MPV 8.4 (7.0-11.0) fL Prelim Diff (Auto) Slide review pending Neut % (Auto) 75.9 H (16.0-70.0) % Lymph % (Auto) 13.7 (9.0-44.0) % [place] % (Auto) 8.4 H (0.0-8.0) % Eos % (Auto) 1.9 (0.0-4.0) % Baso % (Auto) 0.1 (0.0-2.0) % Neut # (Auto) 4.1 (1.8-7.7) th/mm3 Lymph # (Auto) 0.7 L (1.0-4.8) th/mm3 [place] # (Auto) 0.5 (0.0-0.9) th/mm3 Eos # (Auto) 0.1 (0.0-0.4) th/mm3 Baso # (Auto) 0.0 (0.0-0.2) th/mm3 WBC Differential . Diff Scan Auto diff confirmed Differential Comment . Platelet Estimate Low L (Normal) Platelet Morphology Normal (Normal) Ovalocytes (None) PT (9.8-11.6) sec INR Ratio APTT 58.0 H (23.4-31.7) sec Puncture Site Patient Temperature O2 Saturation (90-100) % ABG pH (7.380-7.420) ABG pCO2 (38-42) mmHg ABG pO2 (61-120) mmHg ABG HCO3 (22-26) mmol/L ABG O2 Content (12.0-20.0) Vol % ABG Base Excess (-2-2) mmol/L ABG Methemoglobin (0-2) % [place] Test Hemoglobin (12.0-16.0) G/DL Carboxyhemoglobin (0-4) % O2 Delivery Device Vent Setting Inspired O2 % Critical Value POC Sodium (137-144) mmol/L Sodium (136-145) meq/L POC Potassium (3.6-5.0) mmol/L Potassium (3.5-5.1) meq/L POC Chloride (102-111) mmol/L Chloride (98-107) meq/L Carbon Dioxide (21.0-32.0) meq/L Anion Gap (5-15) meq/L POC BUN (5-21) mg/dL BUN (7-18) mg/dL Creatinine (0.60-1.30) mg/dL POC Creatinine (0.6-1.3) mg/dL Estimated GFR (>89) mL/min POC Glucose 136 H (68-110) mg/dl Random Glucose (74-106) mg/dL Hemoglobin A1c (4.3-6.0) % Lactic Acid (0.4-2.0) mmol/L Calcium (8.5-10.1) mg/dL Phosphorus (2.5-4.9) mg/dL Magnesium (1.5-2.5) mg/dL Total Bilirubin (0.2-1.0) mg/dL AST (15-37) U/L ALT (12-78) U/L Alkaline Phosphatase (45-117) U/L Ammonia (11-32) mcmol/L Total Creatine Kinase (39-308) U/L CK-MB (CK-2) (0.5-3.6) ng/mL Troponin I (0.02-0.05) ng/mL B-Natriuretic Peptide (0-100) pg/mL Total Protein (6.4-8.2) g/dL Albumin (3.4-5.0) g/dL Triglycerides (42-150) mg/dL Cholesterol (120-200) mg/dL LDL Cholesterol, Calc (0-99) mg/dL HDL Cholesterol (40.0-60.0) mg/dL Cholesterol/HDL Ratio Ratio Lipase (73-393) U/L TSH Urine Eosinophils (None Seen) /HPF Ur Random Creatinine (27-300) mg/dL Nasal Screen MRSA (PCR) (Negative) 09/04/18 09/04/18 09/04/18 Range/Units 04:32 04:32 04:32 WBC (4.0-11.0) th/mm3 RBC (4.50-5.90) mil/mm3 Hgb (13.0-17.0) gm/dL POC Hgb (Calc) (13.0-17.0) g/dL Hct (39.0-51.0) % POC Hct (39-51.0) % MCV (80.0-100.0) fL MCH (27.0-34.0) pg MCHC (32.0-36.0) % RDW (11.6-17.2) % Plt Count (150-450) th/mm3 MPV (7.0-11.0) fL Prelim Diff (Auto) Neut % (Auto) (16.0-70.0) % Lymph % (Auto) (9.0-44.0) % [place] % (Auto) (0.0-8.0) % Eos % (Auto) (0.0-4.0) % Baso % (Auto) (0.0-2.0) % Neut # (Auto) (1.8-7.7) th/mm3 Lymph # (Auto) (1.0-4.8) th/mm3 [place] # (Auto) (0.0-0.9) th/mm3 Eos # (Auto) (0.0-0.4) th/mm3 Baso # (Auto) (0.0-0.2) th/mm3 WBC Differential Diff Scan Differential Comment Platelet Estimate (Normal) Platelet Morphology (Normal) Ovalocytes (None) PT (9.8-11.6) sec INR Ratio APTT (23.4-31.7) sec Puncture Site Patient Temperature O2 Saturation (90-100) % ABG pH (7.380-7.420) ABG pCO2 (38-42) mmHg ABG pO2 (61-120) mmHg ABG HCO3 (22-26) mmol/L ABG O2 Content (12.0-20.0) Vol % ABG Base Excess (-2-2) mmol/L ABG Methemoglobin (0-2) % [place] Test Hemoglobin (12.0-16.0) G/DL Carboxyhemoglobin (0-4) % O2 Delivery Device Vent Setting Inspired O2 % Critical Value POC Sodium (137-144) mmol/L Sodium 145 (136-145) meq/L POC Potassium (3.6-5.0) mmol/L Potassium 3.3 L (3.5-5.1) meq/L POC Chloride (102-111) mmol/L Chloride 108 H (98-107) meq/L Carbon Dioxide 28.9 (21.0-32.0) meq/L Anion Gap 8 (5-15) meq/L POC BUN (5-21) mg/dL BUN 47 H (7-18) mg/dL Creatinine 3.14 H (0.60-1.30) mg/dL POC Creatinine (0.6-1.3) mg/dL Estimated GFR 23 L (>89) mL/min POC Glucose (68-110) mg/dl Random Glucose 151 H (74-106) mg/dL Hemoglobin A1c (4.3-6.0) % Lactic Acid 0.7 (0.4-2.0) mmol/L Calcium 7.6 L (8.5-10.1) mg/dL Phosphorus 3.8 (2.5-4.9) mg/dL Magnesium 2.2 (1.5-2.5) mg/dL Total Bilirubin (0.2-1.0) mg/dL AST (15-37) U/L ALT (12-78) U/L Alkaline Phosphatase (45-117) U/L Ammonia (11-32) mcmol/L Total Creatine Kinase 96 (39-308) U/L CK-MB (CK-2) (0.5-3.6) ng/mL Troponin I 0.20 H (0.02-0.05) ng/mL B-Natriuretic Peptide 296 H (0-100) pg/mL Total Protein (6.4-8.2) g/dL Albumin (3.4-5.0) g/dL Triglycerides (42-150) mg/dL Cholesterol (120-200) mg/dL LDL Cholesterol, Calc (0-99) mg/dL HDL Cholesterol (40.0-60.0) mg/dL Cholesterol/HDL Ratio Ratio Lipase (73-393) U/L TSH Urine Eosinophils (None Seen) /HPF Ur Random Creatinine (27-300) mg/dL Nasal Screen MRSA (PCR) (Negative) 09/04/18 09/04/18 09/04/18 Range/Units 04:32 05:52 08:05 WBC (4.0-11.0) th/mm3 RBC (4.50-5.90) mil/mm3 Hgb (13.0-17.0) gm/dL POC Hgb (Calc) (13.0-17.0) g/dL Hct (39.0-51.0) % POC Hct (39-51.0) % MCV (80.0-100.0) fL MCH (27.0-34.0) pg MCHC (32.0-36.0) % RDW (11.6-17.2) % Plt Count (150-450) th/mm3 MPV (7.0-11.0) fL Prelim Diff (Auto) Neut % (Auto) (16.0-70.0) % Lymph % (Auto) (9.0-44.0) % [place] % (Auto) (0.0-8.0) % Eos % (Auto) (0.0-4.0) % Baso % (Auto) (0.0-2.0) % Neut # (Auto) (1.8-7.7) th/mm3 Lymph # (Auto) (1.0-4.8) th/mm3 [place] # (Auto) (0.0-0.9) th/mm3 Eos # (Auto) (0.0-0.4) th/mm3 Baso # (Auto) (0.0-0.2) th/mm3 WBC Differential Diff Scan Differential Comment Platelet Estimate (Normal) Platelet Morphology (Normal) Ovalocytes (None) PT (9.8-11.6) sec INR Ratio APTT (23.4-31.7) sec Puncture Site Art line Patient Temperature 98.6 O2 Saturation 95 (90-100) % ABG pH 7.38 (7.380-7.420) ABG pCO2 44 H (38-42) mmHg ABG pO2 106 (61-120) mmHg ABG HCO3 26 (22-26) mmol/L ABG O2 Content 15.7 (12.0-20.0) Vol % ABG Base Excess 1.0 (-2-2) mmol/L ABG Methemoglobin 1.7 (0-2) % [place] Test Present Hemoglobin 11.6 L (12.0-16.0) G/DL Carboxyhemoglobin 0.7 (0-4) % O2 Delivery Device Ventilator Vent Setting Inspired O2 35 % Critical Value No POC Sodium (137-144) mmol/L Sodium (136-145) meq/L POC Potassium (3.6-5.0) mmol/L Potassium (3.5-5.1) meq/L POC Chloride (102-111) mmol/L Chloride (98-107) meq/L Carbon Dioxide (21.0-32.0) meq/L Anion Gap (5-15) meq/L POC BUN (5-21) mg/dL BUN (7-18) mg/dL Creatinine (0.60-1.30) mg/dL POC Creatinine (0.6-1.3) mg/dL Estimated GFR (>89) mL/min POC Glucose 156 H (68-110) mg/dl Random Glucose (74-106) mg/dL Hemoglobin A1c 7.0 H (4.3-6.0) % Lactic Acid (0.4-2.0) mmol/L Calcium (8.5-10.1) mg/dL Phosphorus (2.5-4.9) mg/dL Magnesium (1.5-2.5) mg/dL Total Bilirubin (0.2-1.0) mg/dL AST (15-37) U/L ALT (12-78) U/L Alkaline Phosphatase (45-117) U/L Ammonia (11-32) mcmol/L Total Creatine Kinase (39-308) U/L CK-MB (CK-2) (0.5-3.6) ng/mL Troponin I (0.02-0.05) ng/mL B-Natriuretic Peptide (0-100) pg/mL Total Protein (6.4-8.2) g/dL Albumin (3.4-5.0) g/dL Triglycerides (42-150) mg/dL Cholesterol (120-200) mg/dL LDL Cholesterol, Calc (0-99) mg/dL HDL Cholesterol (40.0-60.0) mg/dL Cholesterol/HDL Ratio Ratio Lipase (73-393) U/L TSH Urine Eosinophils (None Seen) /HPF Ur Random Creatinine (27-300) mg/dL Nasal Screen MRSA (PCR) (Negative) 09/04/18 09/04/18 09/05/18 Range/Units 12:28 19:50 00:43 WBC (4.0-11.0) th/mm3 RBC (4.50-5.90) mil/mm3 Hgb (13.0-17.0) gm/dL POC Hgb (Calc) (13.0-17.0) g/dL Hct (39.0-51.0) % POC Hct (39-51.0) % MCV (80.0-100.0) fL MCH (27.0-34.0) pg MCHC (32.0-36.0) % RDW (11.6-17.2) % Plt Count (150-450) th/mm3 MPV (7.0-11.0) fL Prelim Diff (Auto) Neut % (Auto) (16.0-70.0) % Lymph % (Auto) (9.0-44.0) % [place] % (Auto) (0.0-8.0) % Eos % (Auto) (0.0-4.0) % Baso % (Auto) (0.0-2.0) % Neut # (Auto) (1.8-7.7) th/mm3 Lymph # (Auto) (1.0-4.8) th/mm3 [place] # (Auto) (0.0-0.9) th/mm3 Eos # (Auto) (0.0-0.4) th/mm3 Baso # (Auto) (0.0-0.2) th/mm3 WBC Differential Diff Scan Differential Comment Platelet Estimate (Normal) Platelet Morphology (Normal) Ovalocytes (None) PT (9.8-11.6) sec INR Ratio APTT (23.4-31.7) sec Puncture Site Patient Temperature O2 Saturation (90-100) % ABG pH (7.380-7.420) ABG pCO2 (38-42) mmHg ABG pO2 (61-120) mmHg ABG HCO3 (22-26) mmol/L ABG O2 Content (12.0-20.0) Vol % ABG Base Excess (-2-2) mmol/L ABG Methemoglobin (0-2) % [place] Test Hemoglobin (12.0-16.0) G/DL Carboxyhemoglobin (0-4) % O2 Delivery Device Vent Setting Inspired O2 % Critical Value POC Sodium (137-144) mmol/L Sodium (136-145) meq/L POC Potassium (3.6-5.0) mmol/L Potassium (3.5-5.1) meq/L POC Chloride (102-111) mmol/L Chloride (98-107) meq/L Carbon Dioxide (21.0-32.0) meq/L Anion Gap (5-15) meq/L POC BUN (5-21) mg/dL BUN (7-18) mg/dL Creatinine (0.60-1.30) mg/dL POC Creatinine (0.6-1.3) mg/dL Estimated GFR (>89) mL/min POC Glucose 155 H 200 H 200 H (68-110) mg/dl Random Glucose (74-106) mg/dL Hemoglobin A1c (4.3-6.0) % Lactic Acid (0.4-2.0) mmol/L Calcium (8.5-10.1) mg/dL Phosphorus (2.5-4.9) mg/dL Magnesium (1.5-2.5) mg/dL Total Bilirubin (0.2-1.0) mg/dL AST (15-37) U/L ALT (12-78) U/L Alkaline Phosphatase (45-117) U/L Ammonia (11-32) mcmol/L Total Creatine Kinase (39-308) U/L CK-MB (CK-2) (0.5-3.6) ng/mL Troponin I (0.02-0.05) ng/mL B-Natriuretic Peptide (0-100) pg/mL Total Protein (6.4-8.2) g/dL Albumin (3.4-5.0) g/dL Triglycerides (42-150) mg/dL Cholesterol (120-200) mg/dL LDL Cholesterol, Calc (0-99) mg/dL HDL Cholesterol (40.0-60.0) mg/dL Cholesterol/HDL Ratio Ratio Lipase (73-393) U/L TSH Urine Eosinophils (None Seen) /HPF Ur Random Creatinine (27-300) mg/dL Nasal Screen MRSA (PCR) (Negative) 09/05/18 09/05/18 09/05/18 Range/Units 05:10 05:10 05:10 WBC 4.0 (4.0-11.0) th/mm3 RBC 3.88 L (4.50-5.90) mil/mm3 Hgb 11.0 L (13.0-17.0) gm/dL POC Hgb (Calc) (13.0-17.0) g/dL Hct 32.6 L (39.0-51.0) % POC Hct (39-51.0) % MCV 83.9 (80.0-100.0) fL MCH 28.5 (27.0-34.0) pg MCHC 33.9 (32.0-36.0) % RDW 16.7 (11.6-17.2) % Plt Count 97 L (150-450) th/mm3 MPV 8.8 (7.0-11.0) fL Prelim Diff (Auto) Slide review pending Neut % (Auto) 66.1 (16.0-70.0) % Lymph % (Auto) 18.6 (9.0-44.0) % [place] % (Auto) 10.7 H (0.0-8.0) % Eos % (Auto) 4.5 H (0.0-4.0) % Baso % (Auto) 0.1 (0.0-2.0) % Neut # (Auto) 2.7 (1.8-7.7) th/mm3 Lymph # (Auto) 0.8 L (1.0-4.8) th/mm3 [place] # (Auto) 0.4 (0.0-0.9) th/mm3 Eos # (Auto) 0.2 (0.0-0.4) th/mm3 Baso # (Auto) 0.0 (0.0-0.2) th/mm3 WBC Differential . Diff Scan Auto diff confirmed Differential Comment . Platelet Estimate Low L (Normal) Platelet Morphology Normal (Normal) Ovalocytes 1+ H (None) PT (9.8-11.6) sec INR Ratio APTT 52.8 H (23.4-31.7) sec Puncture Site Patient Temperature O2 Saturation (90-100) % ABG pH (7.380-7.420) ABG pCO2 (38-42) mmHg ABG pO2 (61-120) mmHg ABG HCO3 (22-26) mmol/L ABG O2 Content (12.0-20.0) Vol % ABG Base Excess (-2-2) mmol/L ABG Methemoglobin (0-2) % [place] Test Hemoglobin (12.0-16.0) G/DL Carboxyhemoglobin (0-4) % O2 Delivery Device Vent Setting Inspired O2 % Critical Value POC Sodium (137-144) mmol/L Sodium 141 (136-145) meq/L POC Potassium (3.6-5.0) mmol/L Potassium 3.0 L (3.5-5.1) meq/L POC Chloride (102-111) mmol/L Chloride 102 (98-107) meq/L Carbon Dioxide 31.6 (21.0-32.0) meq/L Anion Gap 7 (5-15) meq/L POC BUN (5-21) mg/dL BUN 40 H (7-18) mg/dL Creatinine 2.68 H (0.60-1.30) mg/dL POC Creatinine (0.6-1.3) mg/dL Estimated GFR 27 L (>89) mL/min POC Glucose (68-110) mg/dl Random Glucose 238 H (74-106) mg/dL Hemoglobin A1c (4.3-6.0) % Lactic Acid (0.4-2.0) mmol/L Calcium 8.3 L (8.5-10.1) mg/dL Phosphorus 2.9 (2.5-4.9) mg/dL Magnesium 2.3 (1.5-2.5) mg/dL Total Bilirubin (0.2-1.0) mg/dL AST (15-37) U/L ALT (12-78) U/L Alkaline Phosphatase (45-117) U/L Ammonia (11-32) mcmol/L Total Creatine Kinase (39-308) U/L CK-MB (CK-2) (0.5-3.6) ng/mL Troponin I 0.19 H (0.02-0.05) ng/mL B-Natriuretic Peptide (0-100) pg/mL Total Protein (6.4-8.2) g/dL Albumin (3.4-5.0) g/dL Triglycerides (42-150) mg/dL Cholesterol (120-200) mg/dL LDL Cholesterol, Calc (0-99) mg/dL HDL Cholesterol (40.0-60.0) mg/dL Cholesterol/HDL Ratio Ratio Lipase (73-393) U/L TSH Urine Eosinophils (None Seen) /HPF Ur Random Creatinine (27-300) mg/dL Nasal Screen MRSA (PCR) (Negative) 09/05/18 09/05/18 09/06/18 Range/Units 05:10 17:05 06:49 WBC (4.0-11.0) th/mm3 RBC (4.50-5.90) mil/mm3 Hgb (13.0-17.0) gm/dL POC Hgb (Calc) (13.0-17.0) g/dL Hct (39.0-51.0) % POC Hct (39-51.0) % MCV (80.0-100.0) fL MCH (27.0-34.0) pg MCHC (32.0-36.0) % RDW (11.6-17.2) % Plt Count (150-450) th/mm3 MPV (7.0-11.0) fL Prelim Diff (Auto) Neut % (Auto) (16.0-70.0) % Lymph % (Auto) (9.0-44.0) % [place] % (Auto) (0.0-8.0) % Eos % (Auto) (0.0-4.0) % Baso % (Auto) (0.0-2.0) % Neut # (Auto) (1.8-7.7) th/mm3 Lymph # (Auto) (1.0-4.8) th/mm3 [place] # (Auto) (0.0-0.9) th/mm3 Eos # (Auto) (0.0-0.4) th/mm3 Baso # (Auto) (0.0-0.2) th/mm3 WBC Differential Diff Scan Differential Comment Platelet Estimate (Normal) Platelet Morphology (Normal) Ovalocytes (None) PT (9.8-11.6) sec INR Ratio APTT (23.4-31.7) sec Puncture Site Patient Temperature O2 Saturation (90-100) % ABG pH (7.380-7.420) ABG pCO2 (38-42) mmHg ABG pO2 (61-120) mmHg ABG HCO3 (22-26) mmol/L ABG O2 Content (12.0-20.0) Vol % ABG Base Excess (-2-2) mmol/L ABG Methemoglobin (0-2) % Jairo Test Hemoglobin (12.0-16.0) G/DL Carboxyhemoglobin (0-4) % O2 Delivery Device Vent Setting Inspired O2 % Critical Value POC Sodium (137-144) mmol/L Sodium (136-145) meq/L POC Potassium (3.6-5.0) mmol/L Potassium (3.5-5.1) meq/L POC Chloride (102-111) mmol/L Chloride (98-107) meq/L Carbon Dioxide (21.0-32.0) meq/L Anion Gap (5-15) meq/L POC BUN (5-21) mg/dL BUN (7-18) mg/dL Creatinine (0.60-1.30) mg/dL POC Creatinine (0.6-1.3) mg/dL Estimated GFR (>89) mL/min POC Glucose 235 H 215 H 198 H (68-110) mg/dl Random Glucose (74-106) mg/dL Hemoglobin A1c (4.3-6.0) % Lactic Acid (0.4-2.0) mmol/L Calcium (8.5-10.1) mg/dL Phosphorus (2.5-4.9) mg/dL Magnesium (1.5-2.5) mg/dL Total Bilirubin (0.2-1.0) mg/dL AST (15-37) U/L ALT (12-78) U/L Alkaline Phosphatase (45-117) U/L Ammonia (11-32) mcmol/L Total Creatine Kinase (39-308) U/L CK-MB (CK-2) (0.5-3.6) ng/mL Troponin I (0.02-0.05) ng/mL B-Natriuretic Peptide (0-100) pg/mL Total Protein (6.4-8.2) g/dL Albumin (3.4-5.0) g/dL Triglycerides (42-150) mg/dL Cholesterol (120-200) mg/dL LDL Cholesterol, Calc (0-99) mg/dL HDL Cholesterol (40.0-60.0) mg/dL Cholesterol/HDL Ratio Ratio Lipase (73-393) U/L TSH Urine Eosinophils (None Seen) /HPF Ur Random Creatinine (27-300) mg/dL Nasal Screen MRSA (PCR) (Negative) 09/06/18 09/06/18 09/06/18 Range/Units 11:46 16:00 16:00 WBC 3.2 L (4.0-11.0) th/mm3 RBC 4.09 L (4.50-5.90) mil/mm3 Hgb 11.7 L (13.0-17.0) gm/dL POC Hgb (Calc) (13.0-17.0) g/dL Hct 34.9 L (39.0-51.0) % POC Hct (39-51.0) % MCV 85.3 (80.0-100.0) fL MCH 28.6 (27.0-34.0) pg MCHC 33.5 (32.0-36.0) % RDW 16.0 (11.6-17.2) % Plt Count 113 L (150-450) th/mm3 MPV 8.7 (7.0-11.0) fL Prelim Diff (Auto) Neut % (Auto) 61.0 (16.0-70.0) % Lymph % (Auto) 21.7 (9.0-44.0) % [place] % (Auto) 10.8 H (0.0-8.0) % Eos % (Auto) 6.2 H (0.0-4.0) % Baso % (Auto) 0.3 (0.0-2.0) % Neut # (Auto) 2.0 (1.8-7.7) th/mm3 Lymph # (Auto) 0.7 L (1.0-4.8) th/mm3 [place] # (Auto) 0.3 (0.0-0.9) th/mm3 Eos # (Auto) 0.2 (0.0-0.4) th/mm3 Baso # (Auto) 0.0 (0.0-0.2) th/mm3 WBC Differential . Diff Scan Differential Comment Auto diff final Platelet Estimate (Normal) Platelet Morphology (Normal) Ovalocytes (None) PT (9.8-11.6) sec INR Ratio APTT (23.4-31.7) sec Puncture Site Patient Temperature O2 Saturation (90-100) % ABG pH (7.380-7.420) ABG pCO2 (38-42) mmHg ABG pO2 (61-120) mmHg ABG HCO3 (22-26) mmol/L ABG O2 Content (12.0-20.0) Vol % ABG Base Excess (-2-2) mmol/L ABG Methemoglobin (0-2) % Jairo Test Hemoglobin (12.0-16.0) G/DL Carboxyhemoglobin (0-4) % O2 Delivery Device Vent Setting Inspired O2 % Critical Value POC Sodium (137-144) mmol/L Sodium 140 (136-145) meq/L POC Potassium (3.6-5.0) mmol/L Potassium 3.5 (3.5-5.1) meq/L POC Chloride (102-111) mmol/L Chloride 101 (98-107) meq/L Carbon Dioxide 34.2 H (21.0-32.0) meq/L Anion Gap 5 (5-15) meq/L POC BUN (5-21) mg/dL BUN 36 H (7-18) mg/dL Creatinine 2.43 H (0.60-1.30) mg/dL POC Creatinine (0.6-1.3) mg/dL Estimated GFR 31 L (>89) mL/min POC Glucose 198 H (68-110) mg/dl Random Glucose 228 H (74-106) mg/dL Hemoglobin A1c (4.3-6.0) % Lactic Acid (0.4-2.0) mmol/L Calcium 8.2 L (8.5-10.1) mg/dL Phosphorus (2.5-4.9) mg/dL Magnesium (1.5-2.5) mg/dL Total Bilirubin (0.2-1.0) mg/dL AST (15-37) U/L ALT (12-78) U/L Alkaline Phosphatase (45-117) U/L Ammonia (11-32) mcmol/L Total Creatine Kinase (39-308) U/L CK-MB (CK-2) (0.5-3.6) ng/mL Troponin I (0.02-0.05) ng/mL B-Natriuretic Peptide (0-100) pg/mL Total Protein (6.4-8.2) g/dL Albumin (3.4-5.0) g/dL Triglycerides (42-150) mg/dL Cholesterol (120-200) mg/dL LDL Cholesterol, Calc (0-99) mg/dL HDL Cholesterol (40.0-60.0) mg/dL Cholesterol/HDL Ratio Ratio Lipase (73-393) U/L TSH Urine Eosinophils (None Seen) /HPF Ur Random Creatinine (27-300) mg/dL Nasal Screen MRSA (PCR) (Negative) 09/06/18 09/06/18 09/07/18 Range/Units 16:47 23:51 05:59 WBC (4.0-11.0) th/mm3 RBC (4.50-5.90) mil/mm3 Hgb (13.0-17.0) gm/dL POC Hgb (Calc) (13.0-17.0) g/dL Hct (39.0-51.0) % POC Hct (39-51.0) % MCV (80.0-100.0) fL MCH (27.0-34.0) pg MCHC (32.0-36.0) % RDW (11.6-17.2) % Plt Count (150-450) th/mm3 MPV (7.0-11.0) fL Prelim Diff (Auto) Neut % (Auto) (16.0-70.0) % Lymph % (Auto) (9.0-44.0) % [place] % (Auto) (0.0-8.0) % Eos % (Auto) (0.0-4.0) % Baso % (Auto) (0.0-2.0) % Neut # (Auto) (1.8-7.7) th/mm3 Lymph # (Auto) (1.0-4.8) th/mm3 [place] # (Auto) (0.0-0.9) th/mm3 Eos # (Auto) (0.0-0.4) th/mm3 Baso # (Auto) (0.0-0.2) th/mm3 WBC Differential Diff Scan Differential Comment Platelet Estimate (Normal) Platelet Morphology (Normal) Ovalocytes (None) PT (9.8-11.6) sec INR Ratio APTT (23.4-31.7) sec Puncture Site Patient Temperature O2 Saturation (90-100) % ABG pH (7.380-7.420) ABG pCO2 (38-42) mmHg ABG pO2 (61-120) mmHg ABG HCO3 (22-26) mmol/L ABG O2 Content (12.0-20.0) Vol % ABG Base Excess (-2-2) mmol/L ABG Methemoglobin (0-2) % Jairo Test Hemoglobin (12.0-16.0) G/DL Carboxyhemoglobin (0-4) % O2 Delivery Device Vent Setting Inspired O2 % Critical Value POC Sodium (137-144) mmol/L Sodium (136-145) meq/L POC Potassium (3.6-5.0) mmol/L Potassium (3.5-5.1) meq/L POC Chloride (102-111) mmol/L Chloride (98-107) meq/L Carbon Dioxide (21.0-32.0) meq/L Anion Gap (5-15) meq/L POC BUN (5-21) mg/dL BUN (7-18) mg/dL Creatinine (0.60-1.30) mg/dL POC Creatinine (0.6-1.3) mg/dL Estimated GFR (>89) mL/min POC Glucose 221 H 123 H 199 H (68-110) mg/dl Random Glucose (74-106) mg/dL Hemoglobin A1c (4.3-6.0) % Lactic Acid (0.4-2.0) mmol/L Calcium (8.5-10.1) mg/dL Phosphorus (2.5-4.9) mg/dL Magnesium (1.5-2.5) mg/dL Total Bilirubin (0.2-1.0) mg/dL AST (15-37) U/L ALT (12-78) U/L Alkaline Phosphatase (45-117) U/L Ammonia (11-32) mcmol/L Total Creatine Kinase (39-308) U/L CK-MB (CK-2) (0.5-3.6) ng/mL Troponin I (0.02-0.05) ng/mL B-Natriuretic Peptide (0-100) pg/mL Total Protein (6.4-8.2) g/dL Albumin (3.4-5.0) g/dL Triglycerides (42-150) mg/dL Cholesterol (120-200) mg/dL LDL Cholesterol, Calc (0-99) mg/dL HDL Cholesterol (40.0-60.0) mg/dL Cholesterol/HDL Ratio Ratio Lipase (73-393) U/L TSH Urine Eosinophils (None Seen) /HPF Ur Random Creatinine (27-300) mg/dL Nasal Screen MRSA (PCR) (Negative) Imaging Data Radiologist's impression: Chest X-Ray 09/02/18 00:00 CONCLUSION: Interval placement of endotracheal tube which appears appropriate in position. Diffuse bilateral airspace consolidation somewhat worse than seen on prior exam. Venous Doppler Study 09/02/18 00:00 CONCLUSION: 1. Bilateral subcutaneous soft tissue edema within the bilateral calves without evidence of deep venous thrombosis. Chest X-Ray 09/02/18 06:13 CONCLUSION: Diffuse consolidation likely related to diffuse processes such as edema. Blunting of the costophrenic angles suggestive of mild effusions. Abdomen/Bladder Ultrasound 09/02/18 08:09 CONCLUSION: 1. The renal parenchyma is increased in echogenicity bilaterally. Cortical thickness is normal. No evidence of hydronephrosis. Lines are compatible with chronic medical renal disease. Chest X-Ray 09/02/18 09:20 CONCLUSION: Endotracheal tube appears appropriate in position. Stable diffuse airspace consolidation. Abdomen X-Ray 09/02/18 14:45 CONCLUSION: Unremarkable study. Chest X-Ray 09/03/18 08:02 CONCLUSION: Persistent areas of consolidation and airspace opacity with slight improvement in the midlungs. Chest X-Ray 09/04/18 04:00 CONCLUSION: 1. Persistent left lower lung consolidation. 2. Increasing nonconsolidative infiltrates in the lower right lung. ECG Data EKG Prior to Arrival: No Attestation: I personally reviewed and interpreted this ECG as follows: (EKG: Atrial tachycardia with septal Q waves and LVH with lateral ischemic changes and ST elevation in V2.) Discharge Plan Discharge Disposition Patient Disposition: ED Admit(ED Internal Use Only) Discharge Condition Condition: Serious Discharge Order Discharge Orders: ED Use Only Admit Order (Routine); Ordered 09/02/18 Ordered By: Desi Sotomayor Discharge Details Diagnosis: Respiratory failure requiring intubation, Non-ST elevation (NSTEMI) myocardial infarction, Acute renal insufficiency, CHF (congestive heart failure) Physicians Team ED Provider: Desi Sotomayor Primary Care Provider: UNKNOWN, Attending Provider: Jules Rice Other Providers: Michael Carrillo ; Jose Garcia ; Naresh Lopez Status ED Status: Left Department Discharge Information Discharge Date/Time: 09/02/18 09:30
--- NOTE | 2018-09-02 07:45 | XR ---
EXAM DATE: 09/02/2018 7:37 AM EST AGE/SEX: 88 years / Male INDICATIONS: ET tube placement. CLINICAL DATA: This is the patient's initial encounter. Patient reports that signs and symptoms have been present for 1 day and indicates a pain score of Nonresponsive. MEDICAL/SURGICAL HISTORY: Non-responsive. Non-responsive. COMPARISON: [facility] – [place], CHEST 1V SINGLE AP, 09/02/2018. . FINDINGS: There is a right-sided IJ line. Endotracheal tube with tip just beyond the level of the clavicle. Gas tric tubing extending beyond the imaged portion of the film below the level the diaphragm. Heart size appears enlarged. There is bilateral patchy airspace consolidation involving the lungs dif fusely with obscuration of the right hemidiaphragm. The left hemidiaphragm is excluded from the field -of-view. CONCLUSION: Interval placement of endotracheal tube which appears appropriate in position. Diffuse bilateral airs pace consolidation somewhat worse than seen on prior exam. Electronically signed by: Leandra Pérez MD Board Certified Radiologist 09/02/2018 7:44 AM DARSHAN Gaspar
[2018-09-02] MEDS ORDERED: Midazolam Inj 5 MG/ML 1 ML Vial ONE (07:48)
[2018-09-02] MEDS ORDERED: Bisacodyl 10 MG Supp RECTAL PRN (07:59)
[2018-09-02] MEDS ORDERED: fentaNYL 10 mcg/mL Premix Drip 2,500 MCG/250 ML BAG IV.SIG PRN (07:59)
[2018-09-02] MEDS ORDERED: Acetaminophen 325 MG Tablet PO PRN (07:59)
[2018-09-02] MEDS ORDERED: Dextrose 50% in Water 50 ML Vial IV.PUSH PRN (08:06)
[2018-09-02] MEDS ORDERED: Norepinephrine Inj 4 MG/4 ML Ampul ONE (08:24)
--- NOTE | 2018-09-02 09:21 | P.PCN ---
Date of procedure: 09/02/18 Pre-op diagnosis: Hypotension Post-op diagnosis: same Procedure: DATE: 09/02/2018 PROCEDURE: Left femoral arterial catheter placement INDICATION: Dynamic access DETAILS OF PROCEDURE The patient was placed in supine position. The skin was cleansed with Chloraprep. Additional barrier precautions included large sterile drape, sterile gloves, sterile gown, face mask, and hat. 1% lidocaine was used for local anesthesia. Under direct ultrasound guidance and on the initial attempt, the artery was accessed with an introducer needle. The guide wire was advanced. Using Seldinger technique 20 gauge arterial catheter was placed. The guide wire was removed. The catheter was connected to a transducer line and flushed with saline. The video monitor displayed normal arterial wave forms. The catheter was secured with 2-0 silk. A sterile dressing with antibiotic disc was applied. ESTIMATED BLOOD LOSS: minimal COMPLICATIONS: None
--- NOTE | 2018-09-02 09:22 | P.PCN ---
Date of procedure: 09/02/18 Pre-op diagnosis: Hypotension Post-op diagnosis: same Procedure: DATE: 09/02/2018 CENTRAL LINE PLACEMENT: Left internal jugular vein. Ultrasound-guided INDICATION: Central venous access CONSENT Informed consent for procedure was done obtaining considered emergent due to hemodynamic instability/need for vasopressors acutely. DESCRIPTION OF THE PROCEDURE The patient was placed in supine position. The skin was cleansed with Chloraprep. Additional barrier precautions included large sterile drape, sterile gloves, sterile gown, face mask, and hat. 1 % lidocaine was used for local anesthesia. Under direct ultrasound guidance and on initial attempt, the vein was accessed with an introducer needle. The guide wire was advanced and the tract was dilated. Using Seldinger technique a 7 English 20 cm antimicrobial coated triple-lumen catheter was advanced to a depth of 20 centimeters. The guide wire was removed. All ports had good return of dark venous blood and flushed easily with saline. The central line was secured with 2.0 silk. A sterile dressing with antibiotic disc was applied. The StatLock did not adhere to skin ESTIMATED BLOOD LOSS: Minimal COMPLICATIONS: No apparent complications. STAT chest x-ray pending at time of dictation
[2018-09-02] MEDS ORDERED: Sodium Chloride 23.4% Inj 38.5 MEQ in Water for Inj, Sterile 1,000 ML IV.CONT SCH (09:24)
[2018-09-02] MEDS ORDERED: Norepinephrine Inj 16 MG in Sodium Chlor 0.9% Inj 234 ML IV.CONT PRN (09:30)
[2018-09-02] MEDS: Propofol 1000 mg/100 ml Inj 1,000 MG/100 ML BOTTLE IV.CONT PRN ×2 (09:30→18:27)
[2018-09-02] MEDS: Heparin Drip 25,000 UNIT/250 ML BAG IV.CONT PRN (09:30)
--- NOTE | 2018-09-02 09:31 | P.HPCC ---
History of Present Illness Service: Critical care medicine Primary Care Physician: UNKNOWN Chief Complaint: Shortness of breath History of Present Illness: This is an 88-year-old AA male. Date of admission 09/02/2018. Past medical history includes congestive heart failure unknown etiology, essential hypertension, diabetes mellitus, hypothyroidism and bilateral lower extremity edema. For the past 2 half weeks his 's been hospitalized and since questions whether he has been compliant with medications. Presented to [facility] with acute shortness of breath. A STEMI alert was called due to EKG changes in the septal leads. Troponin was 0.15. Patient was placed on BiPAP initially 15/500%. Blood gas revealed significant laboratory acidosis with a metabolic alkalosis component. PCO2 is greater than 100. Patient intubated after receiving 50 mg of propofol on and 2.5 mg of midazolam. Chest x-ray revealed flash pulmonary edema. Patient received nitroglycerin 0.4 mg x2 was started on nitroglycerin drip for hypertension. Patient received 80 mg total of furosemide. Right by the patient, patient blood pressure 50/30. Nitroglycerin was discontinued a central line was placed with an arterial line in place with sterile norepinephrine drip. - Diagnosis (1) Hypernatremia (2) Hyperglycemia (3) Diabetes mellitus (4) Hypothyroidism (5) Bilateral lower extremity edema (6) Hypertension (7) Elevated troponin (8) Respiratory failure requiring intubation (9) Non-ST elevation (NSTEMI) myocardial infarction (10) Acute renal insufficiency (11) CHF (congestive heart failure) (12) Acute respiratory acidosis (13) Thrombocytopenia Inpatient Certification: I certify that the inpatient services were ordered in accordance with Medicare regulations governing the order. This includes certification that hospital inpatient services are reasonable and necessary and in the case of services not specified as inpatient-only under 42 CFR 419.22(n), that they are appropriately provided as inpatient services in accordance to with the 2-midnight benchmark under 43 CFR 412.3(e) Estimated Total Length of Stay (Days): 5 Plans for Post Hospital Care: Not yet determined Review of Systems unobtainable due to mental condition PMFSH - History History Provided By: Patient - Medical History Medical History: Medical History (Last Updated 09/02/18 @ 09:28 by Benito Vasquez MD) CHF (congestive heart failure) Diabetes HTN (hypertension) Hypothyroid Lower extremity edema - Surgical History Surgical History: Surgical History (Last Updated 09/02/18 @ 09:28 by Benito Vasquez MD) History of gonzales (Acute) History of cholecystectomy History of fusion of cervical spine History of right inguinal hernia repair - Family History Family History: Family History (Last Updated 09/02/18 @ 09:28 by Benito Vasquez MD) Other Family history of CHF (congestive heart failure) - Social History I have reviewed the patient's Social History: Yes - Tobacco History Second Hand Smoke Exposure: No Tobacco Use In Past 30 Days: No Smoking Status: Never smoker - Alcohol History How Often Do You Have a Drink Containing Alcohol: Never - Substance Use History Substance History: No History of Abuse - Travel History Recent Travel in the [place] Within the Last 8 Weeks: No Recent Travel Out of the Country Within the Last 8 Weeks: No - Immunization History Tetanus Immunization: Unsure Medications and Allergies Active Medications: Active Medications Acetaminophen (Tylenol) 650 mg PO Q6H PRN PRN Reason: FEVER Al Hydroxide/Mg Hydroxide (Milk Of Magnaba Liq) 30 ml PO Q12H PRN PRN Reason: Mild Constipation Albuterol (Albuterol Neb (Prn)) 2.5 mg NEB Q2HR NEB PRN PRN Reason: SHORTNESS OF BREATH/WHEEZING Albuterol (Duoneb Neb (Toi)) 1 ampul NEB Q4HR NEB TOI Artificial Tears (Tears Naturale Opth Drops) 1 drop EACH EYE Q8H TOI Bisacodyl (Dulcolax Supp) 10 mg RECTAL DAILY PRN PRN Reason: SEVERE CONSITIPATION Chlorhexidine Gluconate (Chlorhexidine 2% Cloth) 3 pack TOPICAL DAILY@0400 TOI Stop: 09/08/18 03:59 Chlorhexidine Gluconate (Chlorhexidine 2% Cloth) 3 pack TOPICAL DAILY@0400 PRN PRN Reason: Extra cloth needed Stop: 09/08/18 03:59 Chlorhexidine Gluconate (Peridex 0.12% Oral Kit) 15 ml OROPHARYNG BID@0800, 2000 TOI Dextrose (D50w Vial) 50 ml IV.PUSH UNSCH PRN PRN Reason: PER HYPOGLYCEMIA PROTOCOL Furosemide (Lasix Inj) 40 mg IV.PUSH BID@0900,1800 TOI Glucagon (Glucagon Inj) 1 mg OTHER PRN PRN PRN Reason: for Hypoglycemia Protocol Nitroglycerin/Dextrose (Nitroglycerin Drip Premix) 50 mg in 250 mls @ 0 mls/hr IV.CONT TITRATE PRN; Protocol PRN Reason: Per Protocol Last Titration: 09/02/18 08:18 Dose: 0 mcg/min, 0 mls/hr Sodium Chloride (Ns Inj) 1,000 mls @ 30 mls/hr IV.SIG .Q24H TOI Stop: 09/03/18 06:29 Last Admin: 09/02/18 07:00 Dose: 30 mls/hr Heparin Sodium/Dextrose (Heparin/D5w 25,000 U/250 Ml) 25,000 unit in 250 mls @ 0 mls/hr IV.CONT TITRATE PRN; Protocol PRN Reason: Per Protocol Fentanyl (Fentanyl 10 Mcg/Ml Premix Drip) 2,500 mcg in 250 mls @ 5 mls/hr IV.SIG TITRATE PRN; Protocol PRN Reason: Per Protocol Propofol (Diprivan 1000 Mg/100 Ml Inj) 1,000 mg in 100 mls @ 2.517 mls/hr IV.CONT TITRATE PRN; Protocol PRN Reason: Per Protocol Norepinephrine Bitartrate 16 (mg/ Sodium Chloride) 250 mls @ 1.87 mls/hr IV.CONT TITRATE PRN; Protocol PRN Reason: See Protocol Insulin Aspart (Novolog Insulin Correctional Sugar Inj) 0 unit SQ Q6HR TOI; Protocol Lactulose (Lactulose Liq) 30 ml PO DAILY PRN PRN Reason: SEVERE CONSITIPATION Levothyroxine Sodium (Synthroid) 88 mcg PO DAILY@0600 [facility] Metolazone (Zaroxolyn) 2.5 mg PO ONCE ONE Stop: 09/02/18 09:24 Miscellaneous Medication () 1 each OROPHARYNG 0000,0400,1200,1600 [facility] Ondansetron HCl (Zofran Inj) 4 mg IV.PUSH Q6H PRN PRN Reason: NAUSEA OR VOMITING Pantoprazole Sodium (Protonix Inj) 40 mg IV.PUSH DAILY [facility] Senna/Docusate Sodium (Tahmina-Colace) 1 tab PO BID [facility] Sennosides (Senokot) 17.2 mg PO Q12H PRN PRN Reason: Moderate Constipation Sodium Chloride (Ns Flush) 2 ml IV.FLUSH BID [facility] Sodium Chloride (Ns Flush) 2 ml IV.FLUSH PRN PRN PRN Reason: FLUSH AFTER USING IV ACCESS Sodium Chloride (Ns Flush) 0 ml IV.FLUSH DAILY TOI Terbutaline Sulfate (Brethine Inj) 1 mg SQ UNSCH PRN PRN Reason: For Extravasation Allergies Allergy/AdvReac Type Severity Reaction Status Date / Time diclofenac Allergy Severe Hives Verified 09/02/18 07:58 etodolac Allergy Severe Hives Verified 09/02/18 07:58 flurbiprofen Allergy Severe Hives Verified 09/02/18 07:58 ibuprofen Allergy Severe Hives Verified 09/02/18 07:58 indomethacin Allergy Severe Hives Verified 09/02/18 07:58 ketoprofen Allergy Severe Hives Verified 09/02/18 07:58 ketorolac Allergy Severe Hives Verified 09/02/18 07:58 naproxen Allergy Severe Hives Verified 09/02/18 07:58 oxaprozin Allergy Severe Hives Verified 09/02/18 07:58 Home Medications Medication Instructions Recorded Confirmed Type amlodipine 5 mg PO DAILY 09/02/18 09/02/18 History carvedilol 3.125 mg PO BID 09/02/18 09/02/18 History furosemide [Lasix] 40 mg PO BID 09/02/18 09/02/18 History glipizide 5 mg PO DAILY 09/02/18 09/02/18 History levothyroxine [Synthroid] 88 mcg PO DAILY 09/02/18 09/02/18 History potassium chloride 10 meq PO DAILY 09/02/18 09/02/18 History Results - Labs CBC & Chem 7: 09/02/18 06:25 09/02/18 06:25 Labs: Short CBC 09/02/18 Range/Units 06:25 WBC 5.9 (4.0-11.0) th/mm3 Hgb 14.5 (13.0-17.0) gm/dL Hct 43.1 (39.0-51.0) % Plt Count 127 L (150-450) th/mm3 BMP 09/02/18 09/02/18 06:25 06:25 Sodium 141 Potassium 4.2 Chloride 108 H Carbon Dioxide 27.3 BUN 27 H Creatinine 2.26 H Calcium 8.4 L 8.5 Cardiac Enzymes 09/02/18 09/02/18 Range/Units 06:25 06:25 Total Creatine Kinase 213 (39-308) U/L CK-MB (CK-2) 1.8 (0.5-3.6) ng/mL Troponin I 0.14 H 0.15 H (0.02-0.05) ng/mL Liver Function 09/02/18 Range/Units 06:25 Total Bilirubin 0.5 (0.2-1.0) mg/dL AST 31 (15-37) U/L ALT 29 (12-78) U/L Alkaline Phosphatase 101 (45-117) U/L Albumin 3.9 (3.4-5.0) g/dL - Imaging Impressions Chest X-Ray 09/02/18 00:00 CONCLUSION: Interval placement of endotracheal tube which appears appropriate in position. Diffuse bilateral airspace consolidation somewhat worse than seen on prior exam. Chest X-Ray 09/02/18 06:13 CONCLUSION: Diffuse consolidation likely related to diffuse processes such as edema. Blunting of the costophrenic angles suggestive of mild effusions. Exam Vital signs: Vital Signs 09/02/18 06:10 09/02/18 06:12 09/02/18 06:15 Temperature 98.8 F Pulse Rate 112 H 109 H Respiratory Rate 40 H 19 Blood Pressure 226/135 H 241/119 H Pulse Oximetry 87 L 95 95 09/02/18 06:19 09/02/18 07:00 09/02/18 07:17 Temperature 97.6 F 97.7 F Pulse Rate 116 H 113 H 90 Respiratory Rate 16 16 Blood Pressure 172/101 H 123/60 Pulse Oximetry 95 93 L 94 L 09/02/18 07:28 09/02/18 07:51 09/02/18 08:30 Temperature 97.7 F Pulse Rate 83 73 Respiratory Rate 26 H 16 16 Blood Pressure 147/78 H 111/61 Pulse Oximetry 94 L 100 100 Intake & Output 09/01/18 09/02/18 09/02/18 18:59 06:59 18:59 Weight 83.915 kg Narrative: GENERAL: 88-year-old male currently resting in bed in no acute distress orotracheally intubated SKIN: Warm and dry. Positive old scabs bilateral lower extremities anterior shins HEAD: Atraumatic. Normocephalic. EYES: Pupils equal and round 3 mm bilaterally. Positive arcus senilis.. No scleral icterus. No injection or drainage. ENT: No nasal bleeding or discharge. Mucous membranes pink and moist. NECK: Trachea midline. No JVD. Left IJ CVL is clean dry and intact CARDIOVASCULAR: Regular rate and rhythm. S1, S2. Positive S4. Positive S3. RESPIRATORY: Coarse crackles throughout all lung conroy. Diminished. GASTROINTESTINAL: Abdomen soft, non-tender, nondistended. Bowel sounds are hypoactive MUSCULOSKELETAL: Extremities right greater than left lower extremity edema. 1-2 +. NEUROLOGICAL: Arousable on the ventilator but not following commands. Moving all 4 extremities spontaneously. Septic Shock Reassessment Septic shock perfusion: reassessment completed Caprini VTE Risk Assessment Caprini VTE Risk Assessment: Moderate/High Risk (score >= 2) Caprini Risk Assessment Model: Point Value = 1 Point Value = 2 Point Value = 3 Point Value = 5 Age 41-60 Minor surgery BMI > 25 kg/m2 Swollen legs Varicose veins or History of unexplained or recurrent spontaneous Oral contraceptives or hormone replacement Sepsis (< 1 month) Serious lung disease, including pneumonia (< 1 month) Abnormal pulmonary function Acute myocardial infarction Congestive heart failure (< 1 month) History of inflammatory bowel disease Medical patient at bed rest Age 61-74 Arthroscopic surgery Major open surgery (> 45 min) Laparoscopic surgery (> 45 min) Malignancy Confined to bed (> 72 hours) Immobilizing plaster cast Central venous access Age >= 75 History of VTE Family history of VTE Factor V Leiden Prothrombin [id number] Lupus anticoagulant Anticardiolipin antibodies Elevated serum homocysteine Heparin-induced thrombocytopenia Other congenital or acquired thrombophilia Stroke (< 1 month) Elective arthroplasty Hip, pelvis, or leg fracture Acute spinal cord injury (< 1 month) Prophylaxis Regimen: Total Risk Factor Score Risk Level Prophylaxis Regimen 0-1 Low Early ambulation 2 Moderate Order ONE of the following: *Sequential Compression Device (SCD) *Heparin 5000 units SQ BID 3-4 Higher Order ONE of the following medications: *Heparin 5000 units SQ TID *Enoxaparin/Lovenox 40 mg SQ daily (WT < 150 kg, CrCl > 30 mL/min) *Enoxaparin/Lovenox 30 mg SQ daily (WT < 150 kg, CrCl > 10-29 mL/min) *Enoxaparin/Lovenox 30 mg SQ BID (WT < 150 kg, CrCl > 30 mL/min) AND/OR *Sequential Compression Device (SCD) 5 or more Highest Order ONE of the following medications: *Heparin 5000 units SQ TID (Preferred with Epidurals) *Enoxaparin/Lovenox 40 mg SQ daily (WT < 150 kg, CrCl > 30 mL/min) *Enoxaparin/Lovenox 30 mg SQ daily (WT < 150 kg, CrCl > 10-29 mL/min) *Enoxaparin/Lovenox 30 mg SQ BID (WT < 150 kg, CrCl > 30 mL/min) AND *Sequential Compression Device (SCD) Assessment and Plan - Problem List (1) Hypernatremia Code(s): E87.0 - Hyperosmolality and hypernatremia Status: Acute (2) Hyperglycemia Code(s): R73.9 - Hyperglycemia, unspecified Status: Acute (3) Diabetes mellitus Code(s): E11.9 - Type 2 diabetes mellitus without complications Status: Chronic (4) Hypothyroidism Code(s): E03.9 - Hypothyroidism, unspecified Status: Chronic (5) Bilateral lower extremity edema Code(s): R60.0 - Localized edema Status: Acute (6) Hypertension Code(s): I10 - Essential (primary) hypertension Status: Acute (7) Elevated troponin Code(s): R74.8 - Abnormal levels of other serum enzymes Status: Acute (8) Respiratory failure requiring intubation Code(s): J96.90 - Respiratory failure, unspecified, unspecified whether with hypoxia or hypercapnia Status: Acute (9) Non-ST elevation (NSTEMI) myocardial infarction Code(s): I21.4 - Non-ST elevation (NSTEMI) myocardial infarction Status: Acute (10) Acute renal insufficiency Code(s): N28.9 - Disorder of kidney and ureter, unspecified Status: Acute (11) CHF (congestive heart failure) Code(s): I50.9 - Heart failure, unspecified Status: Acute (12) Acute respiratory acidosis Code(s): E87.2 - Acidosis Status: Acute (13) Thrombocytopenia Code(s): D69.6 - Thrombocytopenia, unspecified Status: Acute - Assessment and Plan Plan: Neuro/Psych: Currently on propofol/fentanyl drips for sedation/analgesia while intubated Goal of RA SS -2 Daily sedation vacation Acetaminophen 650 mg by tube every 6 hours as needed fever CV: History of congestive heart failure unknown etiology History of essential hypertension Elevated troponin Elevated BNP Patient's rubber liner is Dr. Mireles. Dr. Vaca is seen today Initial troponin 0.15 with normal sinus rhythm. ST elevation in the septal leads. Serial troponins until downward trend 2D echocardiogram ordered. Did not receive aspirin due to anti-inflammatory allergies/multiple. We will start on low-dose beta-shalini. No BUSHRA inhibitor secondary to acute kidney injury. Started on atorvastatin 10 mg daily lipid-lowering agent. Currently on a heparin drip. Patient is on carvedilol 3.2 mg twice daily and amlodipine 5 mg daily at home Patient is on furosemide 40 mg p.o. twice daily at home Start on furosemide 4 mg IV twice daily. Received 80 mg x1 in the ED CVP monitoring Resp: Acute hypoxemic hypercapnic respiratory failure secondary to flash pulmonary edema PRVC ventilations 18/600/0 point Ventilator bundle Albuterol/ipratropium aerosols every 4 hours with albuterol every 2 as needed dyspnea Head of bed at 30 degrees ABG at 10 Spontaneous breathing trials and clinically indicated Follow-up chest x-ray and ABG in a.m. 09/03 GI: Elevated total protein OG tube to low intermittent wall suction Pantoprazole for GI prophylaxis Docusate serum/senna 1 tablet twice daily for bowel regimen : Parikh catheter has been placed for accurate I's and O's in a critical patient on diuretics Endo: Diabetes mellitus Acute hyperglycemia Hypothyroidism Sliding scale insulin aspart insulin with Accu-Cheks to maintain euglycemia/ medium protocol Check hemoglobin A1c and TSH Continue levothyroxine 88 mcg daily Renal: Acute kidney injury Check urine eosinophils, sodium and creatinine Check renal ultrasound Monitor urine output Accurate I's and O's Follow-up creatinine in a.m. 09/03 Avoid nephrotoxic medications Heme: Thrombocytopenia Monitor CBC daily. Follow trends. No indication for transfusion of blood products this time. Currently on heparin drip per [facility] protocol ID: Monitor for signs and symptomatology infection FEN: Acute hypernatremia Recheck BMP at 1800 hours today. Replace electrolytes as clinically indicated Currently on one quarter normal saline at 30 cc an hour MSK: Bilateral lower extremity edema Physical therapy evaluate and treat Dopplers duplex bilateral lower extremities ordered Access -Left IJ CVL day 1 placed 09/02 -Left femoral arterial line placed 09/02 Prophylaxis -GI -pantoprazole -DVT -heparin drip. Patient's son requesting no SCDs. Currently being fully anticoagulate. 35 minutes critical care time Code Status: Full code Discussed Condition With: Patient's son at bedside. Dr. Sotomayor/ED physician. RN. CARE plan discussed and questions answered (3) Diabetes mellitus Qualifiers: Diabetes mellitus type: type 2 Diabetes mellitus residential insulin use: unspecified channel marketing specialist insulin use status Diabetes mellitus complication status : with unspecified complications Qualified Code(s): E11.8 - Type 2 diabetes mellitus with unspecified complications (4) Hypothyroidism Qualifiers: Hypothyroidism type: unspecified Qualified Code(s): E03.9 - Hypothyroidism, unspecified (6) Hypertension Qualifiers: Hypertension type: unspecified Qualified Code(s): I10 - Essential (primary) hypertension (11) CHF (congestive heart failure) Qualifiers: Heart failure type: unspecified Heart failure chronicity: unspecified Qualified Code(s): I50.9 - Heart failure, unspecified
[2018-09-02 10:02] LABS: ABG Base Excess -4.2 mmol/L (-2-2); ABG PCO2 53 mmHg (38-42); ABG PO2 196 mmHG (61-120)
--- NOTE | 2018-09-02 10:16 | XR ---
EXAM DATE: 09/02/2018 10:08 AM EST AGE/SEX: 88 years / Male INDICATIONS: Central Line Placement CLINICAL DATA: This is the patient's subsequent encounter. Patient reports that signs and symptoms h ave been present for 1 day and indicates a pain score of Nonresponsive. MEDICAL/SURGICAL HISTORY: Non-responsive. Non-responsive. COMPARISON: C, CHEST 1V SINGLE AP, 09/02/2018. . FINDINGS: AP view of the chest demonstrates endotracheal tube with the tip just beyond the level of the clavicl es. Gastric tube being extending below the level of the diaphragm. Stable appearance of multifocal ai rspace consolidation. Heart size appears grossly normal. CONCLUSION: Endotracheal tube appears appropriate in position. Stable diffuse airspace consolidation. Electronically signed by: Leandra Pérez MD Board Certified Radiologist 09/02/2018 10:15 AM Randall RAMON
--- NOTE | 2018-09-02 11:03 | US ---
EXAM DATE: 09/02/2018 10:55 AM EST AGE/SEX: 88 years / Male INDICATIONS: Elevated lab values. CLINICAL DATA: This is the patient's initial encounter. Patient reports that signs and symptoms have been present for 1 day and indicates a pain score of 0/10. MEDICAL/SURGICAL HISTORY: Congestive heart failure. Diabetes. Hypertension. Hypothyroid. No ne. COMPARISON: [facility], US KIDNEY, BILATERAL, 03/08/2018. . MEASUREMENTS: Right Kidney:__9.9 x 4.9 x 4.4 cm Left Kidney:__10.2 x 3.9 x 5.4 cm FINDINGS: Right Kidney: Increased echogenicity and normal cortical thickness. No mass or hydronephrosis. Left Kidney: Increased echogenicity and normal cortical thickness. No mass or hydronephrosis. Bladder: Parikh catheter is present. Bladder decompressed. Other: None. CONCLUSION: 1. The renal parenchyma is increased in echogenicity bilaterally. Cortical thickness is normal. No e vidence of hydronephrosis. Lines are compatible with chronic medical renal disease. Electronically signed by: Leandra Pérez MD Board Certified Radiologist 09/02/2018 11:02 AM E
--- NOTE | 2018-09-02 11:05 | US ---
EXAM DATE: 09/02/2018 10:57 AM EST AGE/SEX: 88 years / Male INDICATIONS: Bilateral leg swelling. CLINICAL DATA: This is the patient's initial encounter. Patient reports that signs and symptoms have been present for 1 day and indicates a pain score of 0/10. MEDICAL/SURGICAL HISTORY: Congestive heart failure. Hypertension. Diabetes. Hypothyroid. No ne. COMPARISON: No prior exams available for comparison. TECHNIQUE: Venous ultrasound of both lower extremities was performed from the inguinal ligament to t he proximal calf. Real-time, color Doppler and spectral tracing, compression and augmentation techni ques were used. FINDINGS: Right Leg: Normal compression of the deep venous system from the inguinal region to the proximal azra f. No echogenic clot is seen. Normal response of the venous system to augmentation and respiration. Left Leg: Normal compression of the deep venous system from the inguinal region to the proximal calf . No echogenic clot is seen. Normal response of the venous system to augmentation and respiration. Other: Bilateral lower extremity edema. CONCLUSION: 1. Bilateral subcutaneous soft tissue edema within the bilateral calves without evidence of deep margarita ous thrombosis. Electronically signed by: Leandra Pérez MD Board Certified Radiologist 09/02/2018 11:03 AM Randall RAMON
--- NOTE | 2018-09-02 11:47 | ECG ---
Date Performed: 09/02/2018 Time Performed: 06:16:01 PTAGE: 88 years EKG: ECTOPIC ATRIAL TACHYCARDIA WITH OCCASIONAL VENTRICULAR PREMATURE COMPLEXES Nonspecific ST-T changes suggesting lateral ischemia. PREVIOUS TRACING :07/21/2002 Compared to previous tracing, the rate is faster and anterio r T-waves changes have improved. DOCTOR: Kingston Jarvis Interpretating Date/Time 09/02/2018 11:46:02
[2018-09-02] MEDS: Oral Hygiene Kit OROPHARYNG SCH ×2 (12:09→18:17)
[2018-09-02] MEDS: Senna/Docusate Sodium 8.6/50 MG Tablet PO SCH ×2 (12:26→21:38)
[2018-09-02] MEDS: Pantoprazole Inj 40 MG Vial IV.PUSH SCH (12:26)
--- NOTE | 2018-09-02 12:26 | MB ---
cc: Michael Carrillo MD DATE: 09/02/2018 REASON FOR CONSULTATION: CHF. HISTORY OF PRESENT ILLNESS: The patient is an 88-year-old gentleman who is currently intubated due to respiratory failure without any family at bedside and the chart is fairly minimal, so history is quite lacking at this point in time. He apparently presented with worsening shortness of breath and was intubated for respiratory failure. Laboratory data indicate likely congestive heart failure with an elevated BNP and slightly elevated though flat troponins, also an elevated creatinine. He was given nitroglycerin due to a concern for an CO, which apparently reduced his blood pressures and he has been placed on pressors. Again, the patient is currently intubated and unable to provide any history. All history is obtained from the chart. PAST MEDICAL HISTORY: Unclear, though likely congestive heart failure. CURRENT MEDICATIONS: 1. Lasix 40 mg IV b.i.d. 2. Heparin drip. 3. Lactulose. 4. Zaroxolyn. 5. Synthroid. 6. Norepinephrine. ALLERGIES: MULTIPLE. PLEASE SEE THE CHART. PHYSICAL EXAMINATION: VITAL SIGNS: Afebrile, pulse 73, respiratory rate 20, BP 111/61, saturating 97% on 100% on the ventilator. GENERAL: Intubated, elderly, gentleman in no distress. NECK: No JVD though difficult exam due to body habitus. CARDIOVASCULAR: Regular rate and rhythm. No significant murmurs appreciated. ABDOMEN: Mildly distended. EXTREMITIES: 1+ chronic appearing edema bilaterally. LABORATORY DATA: Sodium 158, potassium 4.4, chloride 102, bicarbonate 27.3, BUN 27, creatinine 2.26, glucose 220. Troponin 0.14, 0.5. BNP 707. Initial pCO2 was 103. INR is 1.0. White count 5.9, hematocrit 43.1, platelets 127. EKG showed sinus rhythm with diffuse T-wave changes and likely an old anteroseptal CO. IMPRESSION: Congestive heart failure. The patient appears to have congestive heart failure and possible chronic obstructive pulmonary disease/hypercarbic respiratory failure. He is currently being diuresed. Hopefully, his ventilator settings can be weaned down and perhaps he can be extubated relatively soon. He will undergo an echocardiogram. I will check our office chart when I get home to see if he has established with us previously to get a better sense on his past medical history. Further recommendations based on the above. Thank you again for the opportunity to participate in this patient's care. MD ELSA Pina/neil , 09:45 AM , 09:53 AM
[2018-09-02] MEDS: Artificial Tears Opth Drops 15 ML Bottle EACH EYE SCH ×2 (12:32→18:18)
[2018-09-02] MEDS: Levothyroxine 88 MCG Tablet PO SCH (12:32)
[2018-09-02] MEDS: Insulin NovoLOG Aspart Correctional Sugar Inj SQ SCH ×2 (12:33→19:40)
[2018-09-02 12:55] LABS: Troponin I 0.17 ng/mL (0.02-0.05)
[2018-09-02] MEDS: Chlorhexidine 0.12% Oral Kit 15 ML UDC OROPHARYNG SCH ×2 (13:23→20:49)
[2018-09-02] MEDS ORDERED: Midazolam 100 MG/100 ML Inj 100 MG/100 ML BAG IV.CONT PRN (13:28)
[2018-09-02] MEDS ORDERED: fentaNYL Citrate Inj 100 MCG/2 ML Ampul IV.PUSH PRN (13:29)
[2018-09-02 13:38] LABS: Hemoglobin A1c 7.2 % (4.3-6.0)
--- NOTE | 2018-09-02 15:04 | ECHRPT ---
Indication: HEART FAILURE CONCLUSIONS The left ventricular systolic function is severely reduced with an estimated ejection fraction in th e range of 20-25%. Global hypokinesis Moderately dilated left ventricle. Wall thickness is normal. There is global left ventricular dysfunction. Moderate thickening of the mitral valve leaflets. Moderate mitral valve regurgitation. Aortic valve sclerosis is present. Trace aortic valve regurgitation. There is trace tricuspid valve regurgitation. Normal estimated pulmonary pressures. The inferior vena cava is dilated. Trivial pericardial effusion. BP: / HR: Rhythm: MEASUREMENTS (Male / Female) Normal Values Technical Quality:Very technically difficult study 2D ECHO LV Diastolic Diameter PLAX 6.1 cm 4.2 - 5.9 / 3.9 - 5.3 cm LV Systolic Diameter PLAX 5.5 cm IVS Diastolic Thickness 1.0 cm 0.6 - 1.0 / 0.6 - 0.9 cm LVPW Diastolic Thickness 1.0 cm 0.6 - 1.0 / 0.6 - 0.9 cm LV Relative Wall Thickness 0.3 LVOT Diameter 2.0 cm LA Systolic Diameter LX 3.8 cm 3.0 - 4.0 / 2.7 - 3.8 cm LV Ejection Fraction MOD 4C 23.2 % LV Ejection Fraction 4C AL 25.5 % M-MODE Aortic Root Diameter MM 2.9 cm LA Systolic Diameter MM 3.7 cm LA Ao Ratio MM 1.3 AV Cusp Separation MM 1.5 cm DOPPLER AV Peak Velocity 113.0 cm/s AV Peak Gradient 5.1 mmHg LVOT Peak Velocity 96.3 cm/s LVOT Peak Gradient 3.7 mmHg AV Area Cont Eq pk 2.7 cm MV Area PHT 4.0 cm Mitral E Point Velocity 88.4 cm/s Mitral A Point Velocity 108.0 cm/s Mitral E to A Ratio 0.8 LV E' Lateral Velocity 4.4 cm/s Mitral E to LV E' Lateral Ratio 20.1 LV E' Septal Velocity 4.8 cm/s Mitral E to LV E' Septal Ratio 18.5 TR Peak Velocity 262.0 cm/s TR Peak Gradient 27.5 mmHg PV Peak Velocity 77.4 cm/s PV Peak Gradient 2.4 mmHg FINDINGS LEFT VENTRICLE The left ventricular systolic function is severely reduced with an estimated ejection fraction in th e range of 20-25%. Moderately dilated left ventricle. Wall thickness is normal. There is global left ventricular dysfunction. RIGHT VENTRICLE Normal right ventricular size and systolic function. LEFT ATRIUM The left atrial size is normal. RIGHT ATRIUM The right atrial size is normal. ATRIAL SEPTUM Normal atrial septal thickness without atrial level shunting by limited color doppler interrogation. AORTA The aortic root and proximal ascending aorta are normal in size on limited imaging. MITRAL VALVE Moderate thickening of the mitral valve leaflets. Moderate mitral valve regurgitation. AORTIC VALVE Trileaflet aortic valve. Aortic valve sclerosis is present. Trace aortic valve regurgitation. TRICUSPID VALVE Structurally normal tricuspid valve. There is trace tricuspid valve regurgitation. Normal estimated pulmonary pressures. PULMONARY VALVE The pulmonary valve is not well visualized. VESSELS The inferior vena cava is dilated. PERICARDIUM Trivial pericardial effusion. Michael Carrillo MD (Electronically Signed) Final Date:02 September 2018 15:03
[2018-09-02 15:38] LABS: ABG Base Excess -3.4 mmol/L (-2-2); ABG PCO2 41 mmHg (38-42); ABG PO2 85 mmHG (61-120)
--- NOTE | 2018-09-02 15:42 | XR ---
EXAM DATE: 09/02/2018 3:17 PM EST AGE/SEX: 88 years / Male INDICATIONS: Emesis, evaluate suction tubing in correct position. CLINICAL DATA: This is the patient's initial encounter. Patient reports that signs and symptoms have been present for 1 day and indicates a pain score of 0/10. MEDICAL/SURGICAL HISTORY: Congestive heart failure. Hypertension. Diabetes. Hypothyroid. No ne. COMPARISON: No prior exams available for comparison. FINDINGS: The bowel gas is nonspecific. There are no signs of obstruction or free air for technique. No definite calcified stones are identified for technique. NG tube is present with tip in the stomach. CONCLUSION: Unremarkable study. Electronically signed by: Uli Ron MD Board Certified Radiologist 09/02/2018 3:40 PM EST
[2018-09-02 20:01] LABS: Calcium 8.3 mg/dL (8.5-10.1); Carbon Dioxide 23.3 meq/L (21.0-32.0); Magnesium 1.9 mg/dL (1.5-2.5); Potassium 3.7 meq/L (3.5-5.1)
[2018-09-02 20:05] LABS: Chol/HDL Ratio 2.64 Ratio; HDL Cholesterol 62.3 mg/dL (40.0-60.0)
[2018-09-02 21:59] LABS: Troponin I 0.26 ng/mL (0.02-0.05)
[2018-09-03] MEDS: Propofol 1000 mg/100 ml Inj 1,000 MG/100 ML BOTTLE IV.CONT PRN ×2 (00:11→09:43)
[2018-09-03] MEDS: Oral Hygiene Kit OROPHARYNG SCH ×4 (00:11→18:18)
[2018-09-03] MEDS: Artificial Tears Opth Drops 15 ML Bottle EACH EYE SCH ×3 (00:11→18:18)
[2018-09-03] MEDS: Insulin NovoLOG Aspart Correctional Sugar Inj SQ SCH ×4 (00:11→18:18)
[2018-09-03] MEDS ORDERED: Chlorhexidine Gluconate 2% 1 Pack (2 Cloths) TOPICAL PRN (04:00)
[2018-09-03 04:07] LABS: Baso % (Auto) 0.1 % (0.0-2.0); Hematocrit 33.3 % (39.0-51.0); Hemoglobin 11.4 gm/dL (13.0-17.0); Lymph # (Auto) 0.9 th/mm3 (1.0-4.8); Mean Corpuscular HGB Conc 34.2 % (32.0-36.0); Mean Corpuscular Hemoglobin 28.6 pg (27.0-34.0); Mean Corpuscular Volume 83.7 fL (80.0-100.0); Mean Platelet Volume 8.5 fL (7.0-11.0); Mono # (Auto) 0.4 th/mm3 (0.0-0.9); Mono % (Auto) 6.5 % (0.0-8.0); Neut # (Auto) 4.3 th/mm3 (1.8-7.7); Neut % (Auto) 77.4 % (16.0-70.0); Platelet Count 107 th/mm3 (150-450); Red Blood Count 3.98 mil/mm3 (4.50-5.90); Red Cell Distribution Width 16.7 % (11.6-17.2); White Blood Count 5.6 th/mm3 (4.0-11.0)
[2018-09-03 04:26] LABS: Activated Partial Thrombo Time 72.8 sec (23.4-31.7); INR 1.2 Ratio
[2018-09-03 04:47] LABS: Alanine Aminotransferase 21 U/L (12-78); Albumin 2.5 g/dL (3.4-5.0); Alkaline Phosphatase 57 U/L (45-117); Anion Gap 11 meq/L (5-15); Aspartate Aminotransferase 20 U/L (15-37); Blood Urea Nitrogen 39 mg/dL (7-18); Carbon Dioxide 22.9 meq/L (21.0-32.0); Chloride 109 meq/L (98-107); Glomerular Filtration Rate 23 mL/min (>89); Glucose,Random 166 mg/dL (74-106); Magnesium 1.9 mg/dL (1.5-2.5); Potassium 3.8 meq/L (3.5-5.1); Sodium 143 meq/L (136-145); Thyroid Stimulating Hormone 0.614 uIU/mL (0.358-3.740)
[2018-09-03] MEDS: Chlorhexidine Gluconate 2% 1 Pack (2 Cloths) TOPICAL SCH (04:54)
[2018-09-03] MEDS: Heparin Drip 25,000 UNIT/250 ML BAG IV.CONT PRN (04:54)
[2018-09-03] MEDS: Levothyroxine 88 MCG Tablet PO SCH (05:11)
--- NOTE | 2018-09-03 05:16 | XR ---
EXAM DATE: 09/03/2018 5:12 AM EST AGE/SEX: 88 years / Male INDICATIONS: Shortness of breath, possible pulmonary disease. CLINICAL DATA: This is the patient's subsequent encounter. Patient reports that signs and symptoms h ave been present for 2 days and indicates a pain score of Nonresponsive. MEDICAL/SURGICAL HISTORY: Non-responsive. Non-responsive. COMPARISON: [facility], CHEST 1V SINGLE AP, 09/02/2018. . FINDINGS: ET tube tip well above the brennan. Gastric tube tip and side-port project within the stomach. Left in ternal jugular catheter tip projects over the proximal superior vena cava. Patchy areas of airspace o pacity in the midlungs bilaterally, partial consolidation left lower lung and opacity causing loss of delineation of the right lateral hemidiaphragm have a similar appearance to prior examination with s light improvement in the mid lung airspace opacities. CONCLUSION: Persistent areas of consolidation and airspace opacity with slight improvement in the midlungs. Electronically signed by: Gilberto Kenney MD Board Certified Radiologist 09/03/2018 5:14 AM EST
[2018-09-03 05:30] LABS: ABG Base Excess -0.3 mmol/L (-2-2); ABG PCO2 25 mmHg (38-42); ABG PO2 141 mmHG (61-120)
[2018-09-03 08:09] LABS: ABG Base Excess 0.6 mmol/L (-2-2); ABG PCO2 30 mmHg (38-42); ABG PO2 183 mmHG (61-120)
--- NOTE | 2018-09-03 08:25 | P.PNCC ---
Subjective Subjective Remarks/Hospital Course: 08/18&; Last evening , nitroglycerin infusion discontinued secondary to hypotension. The patient is normotensive at this time throughout the evening and night. Chest x-ray still reveals consolidation but FiO2 requirements have significantly decreased. ABG this a.m. is pending. Troponins noted to be downtrending. Plan to initiate CPAP trials this a.m.. Creatinine continues to remain elevated nephrology has been consulted, appreciate recommendations. Objective Vital Signs / I&O: Vital Signs 09/02/18 08:30 09/02/18 09:24 09/02/18 09:26 Temperature Pulse Rate 73 Respiratory Rate 16 20 Blood Pressure 111/61 Pulse Oximetry 100 97 97 09/02/18 09:29 09/02/18 09:30 09/02/18 10:00 Temperature 97.7 F Pulse Rate 67 82 50 L Respiratory Rate 20 16 20 Blood Pressure 110/63 110/66 164/78 H Pulse Oximetry 97 99 100 09/02/18 10:01 09/02/18 10:07 09/02/18 11:00 Temperature Pulse Rate 59 L 59 L Respiratory Rate 21 24 27 H Blood Pressure 164/78 H 146/72 H Pulse Oximetry 100 100 99 09/02/18 11:06 09/02/18 12:00 09/02/18 12:01 Temperature Pulse Rate 56 L 71 71 Respiratory Rate 24 24 24 Blood Pressure 164/75 H Pulse Oximetry 95 95 09/02/18 13:00 09/02/18 13:13 09/02/18 14:00 Temperature Pulse Rate 70 78 Respiratory Rate 24 24 24 Blood Pressure 173/79 H 181/79 H Pulse Oximetry 100 100 100 09/02/18 15:00 09/02/18 15:05 09/02/18 15:09 Temperature Pulse Rate 89 87 86 Respiratory Rate 26 H 24 26 H Blood Pressure 164/87 H Pulse Oximetry 99 97 09/02/18 16:00 09/02/18 16:01 09/02/18 16:07 Temperature Pulse Rate 87 86 84 Respiratory Rate 24 15 24 Blood Pressure 182/74 H 157/67 H Pulse Oximetry 99 99 100 09/02/18 16:09 09/02/18 17:00 09/02/18 18:00 Temperature Pulse Rate 79 80 Respiratory Rate 24 24 7 L Blood Pressure 159/73 H 163/74 H Pulse Oximetry 100 100 100 12/16/18 19:00 09/02/18 20:00 09/02/18 20:36 Temperature 99.8 F H Pulse Rate 79 80 84 Respiratory Rate 24 16 24 Blood Pressure 154/71 H 145/67 H 118/59 L Pulse Oximetry 100 100 100 09/02/18 20:42 09/02/18 20:45 09/02/18 20:47 Temperature Pulse Rate 86 86 Respiratory Rate 24 24 24 Blood Pressure 120/58 L Pulse Oximetry 100 100 09/02/18 21:00 09/02/18 21:15 09/02/18 21:30 Temperature Pulse Rate 85 87 84 Respiratory Rate 24 24 24 Blood Pressure 111/57 L 114/56 L 122/59 L Pulse Oximetry 100 100 100 09/02/18 21:45 09/02/18 22:00 09/02/18 22:15 Temperature Pulse Rate 83 85 86 Respiratory Rate 24 24 24 Blood Pressure 124/59 L 118/55 L 105/54 L Pulse Oximetry 100 100 100 09/02/18 22:30 09/02/18 22:45 09/02/18 22:49 Temperature Pulse Rate 84 84 84 Respiratory Rate 23 0 L 24 Blood Pressure 104/56 L 104/56 L 108/56 L Pulse Oximetry 100 100 100 09/02/18 22:51 09/02/18 23:00 09/02/18 23:15 Temperature Pulse Rate 84 84 80 Respiratory Rate 16 24 24 Blood Pressure 99/55 L 98/51 L 99/52 L Pulse Oximetry 100 100 100 09/02/18 23:30 09/02/18 23:45 09/02/18 23:48 Temperature Pulse Rate 79 76 76 Respiratory Rate 24 24 24 Blood Pressure 103/56 L 109/55 L Pulse Oximetry 100 100 100 09/03/18 00:00 09/03/18 00:15 09/03/18 00:30 Temperature 100.8 F H Pulse Rate 74 76 76 Respiratory Rate 24 24 24 Blood Pressure 95/51 L 101/55 L 100/55 L Pulse Oximetry 100 100 100 09/03/18 00:45 09/03/18 01:00 09/03/18 01:15 Temperature Pulse Rate 76 74 72 Respiratory Rate 24 24 24 Blood Pressure 95/53 L 104/55 L 104/58 L Pulse Oximetry 100 100 100 09/03/18 01:30 09/03/18 01:45 09/03/18 02:00 Temperature Pulse Rate 73 72 71 Respiratory Rate 24 24 24 Blood Pressure 112/58 L 117/58 L 124/58 L Pulse Oximetry 100 100 100 09/03/18 02:15 09/03/18 02:30 09/03/18 02:45 Temperature Pulse Rate 73 70 71 Respiratory Rate 24 24 24 Blood Pressure 125/60 112/57 L 126/58 L Pulse Oximetry 100 100 100 09/03/18 03:00 09/03/18 03:15 09/03/18 03:30 Temperature Pulse Rate 72 70 67 Respiratory Rate 24 24 24 Blood Pressure 114/56 L 128/59 L 114/54 L Pulse Oximetry 100 100 100 09/03/18 03:45 09/03/18 04:00 09/03/18 04:15 Temperature 99.1 F Pulse Rate 71 68 68 Respiratory Rate 24 24 24 Blood Pressure 122/58 L 120/56 L 133/67 Pulse Oximetry 100 100 100 09/03/18 04:24 09/03/18 04:30 09/03/18 04:45 Temperature Pulse Rate 68 69 65 Respiratory Rate 24 24 24 Blood Pressure 120/55 L 119/59 L Pulse Oximetry 100 100 100 09/03/18 05:00 09/03/18 05:15 09/03/18 05:30 Temperature Pulse Rate 69 64 68 Respiratory Rate 24 24 24 Blood Pressure 137/62 132/63 128/64 Pulse Oximetry 100 100 100 09/03/18 05:45 09/03/18 06:00 09/03/18 06:15 Temperature Pulse Rate 66 66 67 Respiratory Rate 24 24 24 Blood Pressure 114/59 L 106/54 L 111/57 L Pulse Oximetry 100 100 100 09/03/18 06:30 09/03/18 07:00 09/03/18 08:00 Temperature Pulse Rate 59 L 59 L Respiratory Rate 18 18 18 Blood Pressure 145/65 H Pulse Oximetry 100 100 Intake & Output 09/02/18 09/03/18 09/03/18 18:59 06:59 18:59 Intake Total 700 / 700 384 / 384 Output Total 2450 / 2450 225 / 225 Balance -1750 / -1750 159 / 159 Weight 106.1 kg Intake: IV 700 / 700 384 / 384 Heparin/D5W 25,000 U/250 mL 25, 250 / 250 000 unit In 250 ml @ Per Protocol IV.CONT TITRATE PRN Rx #:[id number] Nitroglycerin Drip Premix 50 mg 250 / 250 32 / 32 In 250 ml @ 5 MCG/MIN 1.5 mls/ hr IV.CONT TITRATE PRN Rx#: [id number] Levophed Inj 16 MG In NS Inj 2 / 2 234 ML @ 2 MCG/MIN 1.87 mls/hr IV.CONT TITRATE PRN Rx#: [id number] Diprivan 1000 mg/100 ml Inj 1, 200 / 200 100 / 100 000 mg In 100 ml @ 5 MCG/KG/MIN 2.517 mls/hr IV.CONT TITRATE PRN Rx#:[id number] fentaNYL 10 mcg/mL Premix Drip 250 / 250 2,500 mcg In 250 ml @ 50 MCG/HR 5 mls/hr IV.SIG TITRATE PRN Rx #:[id number] Output: Urine 1850 / 1850 225 / 225 Urine Amount (Catheter) 600 / 600 Indwelling Urethral Catheter 600 / 600 Other: # Bowel Movements 0 Result Diagrams: 09/03/18 03:45 09/03/18 03:45 Other Results: Laboratory Results WBC 5.6 th/mm3 (4.0-11.0) 09/03/18 03:45 RBC 3.98 mil/mm3 (4.50-5.90) L 09/03/18 03:45 Hgb 11.4 gm/dL (13.0-17.0) L D 09/03/18 03:45 POC Hgb (Calc) 16.0 g/dL (13.0-17.0) 09/02/18 06:25 Hct 33.3 % (39.0-51.0) L 09/03/18 03:45 POC Hct 47.0 % (39-51.0) 09/02/18 06:25 MCV 83.7 fL (80.0-100.0) 09/03/18 03:45 MCH 28.6 pg (27.0-34.0) 09/03/18 03:45 MCHC 34.2 % (32.0-36.0) 09/03/18 03:45 RDW 16.7 % (11.6-17.2) 09/03/18 03:45 Plt Count 107 th/mm3 (150-450) L 09/03/18 03:45 MPV 8.5 fL (7.0-11.0) 09/03/18 03:45 Neut % (Auto) 77.4 % (16.0-70.0) H 09/03/18 03:45 Lymph % (Auto) 16.0 % (9.0-44.0) 09/03/18 03:45 [place] % (Auto) 6.5 % (0.0-8.0) 09/03/18 03:45 Eos % (Auto) 0.0 % (0.0-4.0) 09/03/18 03:45 Baso % (Auto) 0.1 % (0.0-2.0) 09/03/18 03:45 Neut # (Auto) 4.3 th/mm3 (1.8-7.7) 09/03/18 03:45 Lymph # (Auto) 0.9 th/mm3 (1.0-4.8) L 09/03/18 03:45 [place] # (Auto) 0.4 th/mm3 (0.0-0.9) 09/03/18 03:45 Eos # (Auto) 0.0 th/mm3 (0.0-0.4) 09/03/18 03:45 Baso # (Auto) 0.0 th/mm3 (0.0-0.2) 09/03/18 03:45 WBC Differential . 09/03/18 03:45 Differential Comment Auto diff final 09/03/18 03:45 PT 12.0 sec (9.8-11.6) H 09/03/18 03:45 INR 1.2 Ratio 09/03/18 03:45 APTT 72.8 sec (23.4-31.7) H D 09/03/18 03:45 Puncture Site Art line 09/03/18 05:20 Patient Temperature 98.6 09/03/18 05:20 O2 Saturation 97 % (90-100) 09/03/18 05:20 ABG pH 7.55 (7.380-7.420) H* 09/03/18 05:20 ABG pCO2 25 mmHg (38-42) L 09/03/18 05:20 ABG pO2 141 mmHG (61-120) H 09/03/18 05:20 ABG HCO3 22 mmol/L (22-26) 09/03/18 05:20 ABG O2 Content 15.7 Vol % (12.0-20.0) 09/03/18 05:20 ABG Base Excess -0.3 mmol/L (-2-2) 09/03/18 05:20 ABG Methemoglobin 1.7 % (0-2) 09/03/18 05:20 Jairo Test Present 09/02/18 15:32 Hemoglobin 11.4 G/DL (12.0-16.0) L 09/03/18 05:20 Carboxyhemoglobin 0.7 % (0-4) 09/03/18 05:20 O2 Delivery Device Ventilator 09/03/18 05:20 Vent Setting Prvc/ac 24 vt 600 09/03/18 05:20 Inspired O2 50 % 09/03/18 05:20 Critical Value Yes 09/03/18 05:20 POC Sodium 158 mmol/L (137-144) H* 09/02/18 06:25 Sodium 143 meq/L (136-145) 09/03/18 03:45 POC Potassium 4.4 mmol/L (3.6-5.0) 09/02/18 06:25 Potassium 3.8 meq/L (3.5-5.1) 09/03/18 03:45 POC Chloride 102 mmol/L (102-111) 09/02/18 06:25 Chloride 109 meq/L (98-107) H 09/03/18 03:45 Carbon Dioxide 22.9 meq/L (21.0-32.0) 09/03/18 03:45 Anion Gap 11 meq/L (5-15) 09/03/18 03:45 POC BUN 30 mg/dL (5-21) H 09/02/18 06:25 BUN 39 mg/dL (7-18) H 09/03/18 03:45 Creatinine 3.13 mg/dL (0.60-1.30) H 09/03/18 03:45 POC Creatinine 2.2 mg/dL (0.6-1.3) H 09/02/18 06:25 Estimated GFR 23 mL/min (>89) L 09/03/18 03:45 POC Glucose 155 mg/dl (68-110) H 09/02/18 23:59 Random Glucose 166 mg/dL (74-106) H 09/03/18 03:45 Hemoglobin A1c 7.2 % (4.3-6.0) H 09/02/18 11:52 Lactic Acid 1.5 mmol/L (0.4-2.0) 09/03/18 03:45 Calcium 8.0 mg/dL (8.5-10.1) L 09/03/18 03:45 Phosphorus 3.0 mg/dL (2.5-4.9) 09/03/18 03:45 Magnesium 1.9 mg/dL (1.5-2.5) 09/03/18 03:45 Total Bilirubin 0.8 mg/dL (0.2-1.0) 09/03/18 03:45 AST 20 U/L (15-37) 09/03/18 03:45 ALT 21 U/L (12-78) 09/03/18 03:45 Alkaline Phosphatase 57 U/L (45-117) 09/03/18 03:45 Ammonia 18 mcmol/L (11-32) 09/02/18 21:15 Total Creatine Kinase 121 U/L (39-308) 09/02/18 21:15 CK-MB (CK-2) 1.8 ng/mL (0.5-3.6) 09/02/18 06:25 Troponin I 0.19 ng/mL (0.02-0.05) H 09/03/18 03:45 B-Natriuretic Peptide 707 pg/mL (0-100) H 09/02/18 06:25 Total Protein 6.0 g/dL (6.4-8.2) L D 09/03/18 03:45 Albumin 2.5 g/dL (3.4-5.0) L D 09/03/18 03:45 Triglycerides 54 mg/dL (42-150) 09/02/18 19:28 Cholesterol 165 mg/dL (120-200) 09/02/18 19:28 LDL Cholesterol, Calc 92 mg/dL (0-99) 09/02/18 19:28 HDL Cholesterol 62.3 mg/dL (40.0-60.0) H 09/02/18 19:28 Cholesterol/HDL Ratio 2.64 Ratio 09/02/18 19:28 Lipase 233 U/L (73-393) 09/02/18 11:52 TSH 0.614 uIU/mL (0.358-3.740) 09/03/18 03:45 Urine Eosinophils None seen /HPF (None Seen) 09/02/18 11:40 Ur Random Creatinine 62 mg/dL (27-300) 09/02/18 11:40 Nasal Screen MRSA (PCR) Not detected (Negative) 09/02/18 09:30 Impressions Venous Doppler Study 09/02/18 00:00 CONCLUSION: 1. Bilateral subcutaneous soft tissue edema within the bilateral calves without evidence of deep venous thrombosis. Abdomen/Bladder Ultrasound 09/02/18 08:09 CONCLUSION: 1. The renal parenchyma is increased in echogenicity bilaterally. Cortical thickness is normal. No evidence of hydronephrosis. Lines are compatible with chronic medical renal disease. Abdomen X-Ray 09/02/18 14:45 CONCLUSION: Unremarkable study. Chest X-Ray 09/03/18 08:02 CONCLUSION: Persistent areas of consolidation and airspace opacity with slight improvement in the midlungs. Objective Remarks: GENERAL: This is a well-developed well-nourished, obese -[place] elderly male patient currently in no acute distress intubated responding by yes and no questions appropriately SKIN: Warm and dry. HEAD: Atraumatic. Normocephalic. EYES: Pupils equal and round. EOMI. No scleral icterus. No injection or drainage. ENT: No nasal bleeding or discharge. Mucous membranes pink and moist. NECK: Trachea midline. Unable to assess JVD, secondary to body habitus. CARDIOVASCULAR: Normal rate, regular rhythm. RESPIRATORY: No accessory muscle use. Clear to auscultation. Breath sounds equal bilaterally. GASTROINTESTINAL: Abdomen soft, non-tender, obese, nondistended. No guarding. MUSCULOSKELETAL: Extremities without clubbing, cyanosis, or edema. No obvious deformities. Normoactive bowel sounds NEUROLOGICAL: GCS 11 T .awake and alert. RASS 0. No gross focal/sensory deficits. Follows commands in all 4 extremities. Assessment and Plan - Problem List (1) Hypernatremia Code(s): E87.0 - Hyperosmolality and hypernatremia Status: Acute (2) Hyperglycemia Code(s): R73.9 - Hyperglycemia, unspecified Status: Acute (3) Diabetes mellitus Code(s): E11.9 - Type 2 diabetes mellitus without complications Status: Chronic (4) Hypothyroidism Code(s): E03.9 - Hypothyroidism, unspecified Status: Chronic (5) Bilateral lower extremity edema Code(s): R60.0 - Localized edema Status: Acute (6) Hypertension Code(s): I10 - Essential (primary) hypertension Status: Acute (7) Elevated troponin Code(s): R74.8 - Abnormal levels of other serum enzymes Status: Acute (8) Respiratory failure requiring intubation Code(s): J96.90 - Respiratory failure, unspecified, unspecified whether with hypoxia or hypercapnia Status: Acute (9) Non-ST elevation (NSTEMI) myocardial infarction Code(s): I21.4 - Non-ST elevation (NSTEMI) myocardial infarction Status: Acute (10) Acute renal insufficiency Code(s): N28.9 - Disorder of kidney and ureter, unspecified Status: Acute (11) CHF (congestive heart failure) Code(s): I50.9 - Heart failure, unspecified Status: Acute (12) Acute respiratory acidosis Code(s): E87.2 - Acidosis Status: Acute (13) Thrombocytopenia Code(s): D69.6 - Thrombocytopenia, unspecified Status: Acute (14) Chronic kidney disease Code(s): N18.9 - Chronic kidney disease, unspecified Status: Acute - Assessment and Plan Plan: Neuro/Psych: Currently on propofol/fentanyl drips for sedation/analgesia while intubated Goal of RA SS -2 Daily sedation vacation Acetaminophen 650 mg by tube every 6 hours as needed fever CV: History of congestive heart failure unknown etiology History of essential hypertension Elevated troponin Elevated BNP Patient's materials handling coordinator is Dr. Mireles. F/U cardiology recommendation Initial troponin 0.15->.26, now down trending 0.19. with normal sinus rhythm. ST elevation in the septal leads. Serial troponins until downward trend 09/03 2D echocardiogram -EF 20-25% with global hypokinesis moderate MR, trace TR Did not receive aspirin due to anti-inflammatory allergies/multiple. Continue low-dose beta-shalini. No BUSHRA inhibitor secondary to acute kidney injury. Continue atorvastatin 10 mg daily l Currently on a heparin drip. Patient is on carvedilol 3.2 mg twice daily and amlodipine 5 mg daily at home Patient is on furosemide 40 mg p.o. twice daily at home Start on furosemide 4 mg IV twice daily. Received 80 mg x1 in the ED CVP monitoring Resp: Acute hypoxemic hypercapnic respiratory failure secondary to flash pulmonary edema PRVC ventilations 18/600/8/.50 Ventilator bundle Albuterol/ipratropium aerosols every 4 hours with albuterol every 2 as needed dyspnea Head of bed at 30 degrees ABG-7.5/30/183/23/0.6 Spontaneous breathing trials and clinically indicated Follow-up chest x-ray and ABG in a.m. 09/04 GI: Elevated total protein OG tube Pantoprazole for GI prophylaxis Docusate serum/senna 1 tablet twice daily for bowel regimen : Parikh catheter has been placed for accurate I's and O's in a critical patient on diuretics Endo: Diabetes mellitus Acute hyperglycemia Hypothyroidism Sliding scale insulin aspart insulin with Accu-Cheks to maintain euglycemia/ medium protocol Check hemoglobin A1c and TSH Continue levothyroxine 88 mcg daily Renal: Acute on chronic kidney injury Renal ultrasound-chronic medical disease Monitor urine output- 250cc overnight in 12 hours Accurate I's and O's Follow-up creatinine in a.m. Avoid nephrotoxic medications Nephrology consulted, appreciate recommendations Heme: Thrombocytopenia Monitor CBC daily. Follow trends. No indication for transfusion of blood products this time. Currently on heparin drip per [place] protocol ID: Monitor for signs and symptomatology infection FEN: Acute hypernatremia- resolved Monitor BMP Replace electrolytes as clinically indicated Currently on normal saline at 30 cc an hour MSK: Bilateral lower extremity edema Physical therapy evaluate and treat 09/03Dopplers duplex bilateral lower extremities-evidence of DVT Access -Left IJ CVL day 2 placed 09/02 -Left femoral arterial line placed 09/02 Prophylaxis -GI -pantoprazole -DVT -heparin drip. Patient's son requesting no SCDs. Currently being fully anticoagulate. My billing statement This patient remains critically ill with one or more organ systems which are or may become a threat to life. I have spent in excess of 38 minutes discontinuously in the care and management of this patient. This time is exclusive of procedures, and includes, but is not limited to, evaluation of the patient, review of the medical record, discussions with family, consultants, nursing staff, or respiratory therapy, and documentation in the medical record. Code Status: Full Discussed Condition With: No family at bedside. Discussed with LAND MANAGEMENT SUPERVISOR at bedside. (3) Diabetes mellitus Qualifiers: Diabetes mellitus type: type 2 Diabetes mellitus chcf insulin use: unspecified chcf insulin use status Diabetes mellitus complication status : with unspecified complications Qualified Code(s): E11.8 - Type 2 diabetes mellitus with unspecified complications (4) Hypothyroidism Qualifiers: Hypothyroidism type: unspecified Qualified Code(s): E03.9 - Hypothyroidism, unspecified (6) Hypertension Qualifiers: Hypertension type: unspecified Qualified Code(s): I10 - Essential (primary) hypertension (11) CHF (congestive heart failure) Qualifiers: Heart failure type: unspecified Heart failure chronicity: unspecified Qualified Code(s): I50.9 - Heart failure, unspecified
[2018-09-03] MEDS: Chlorhexidine 0.12% Oral Kit 15 ML UDC OROPHARYNG SCH ×2 (08:35→20:47)
[2018-09-03] MEDS: Pantoprazole Inj 40 MG Vial IV.PUSH SCH (08:35)
[2018-09-03] MEDS: Senna/Docusate Sodium 8.6/50 MG Tablet PO SCH ×2 (08:38→20:47)
--- NOTE | 2018-09-03 11:02 | P.PNCA ---
Subjective Interval history: Pt remains intubated, chart reviewed. Medications and Allergies Active Medications: Active Medications Acetaminophen (Tylenol) 650 mg PO Q6H PRN PRN Reason: FEVER Last Admin: 09/03/18 00:11 Dose: 650 mg Albuterol (Albuterol Neb (Prn)) 2.5 mg NEB Q2HR NEB PRN PRN Reason: SHORTNESS OF BREATH/WHEEZING Albuterol (Duoneb Neb (Toi)) 1 ampul NEB Q4HR NEB [facility] Last Admin: 09/03/18 07:59 Dose: 1 ampul Artificial Tears (Tears Naturale Opth Drops) 1 drop EACH EYE Q8H [facility] Last Admin: 09/03/18 08:38 Dose: 1 drop Atorvastatin Calcium (Lipitor) 10 mg PO HS [facility] Last Admin: 09/02/18 21:38 Dose: 10 mg Bisacodyl (Dulcolax Supp) 10 mg RECTAL DAILY PRN PRN Reason: SEVERE CONSITIPATION Carvedilol (Coreg) 3.125 mg PO BID [facility] Last Admin: 09/03/18 08:35 Dose: 3.125 mg Chlorhexidine Gluconate (Chlorhexidine 2% Cloth) 3 pack TOPICAL DAILY@0400 [facility] Stop: 09/08/18 03:59 Last Admin: 09/03/18 04:54 Dose: 3 pack Chlorhexidine Gluconate (Chlorhexidine 2% Cloth) 3 pack TOPICAL DAILY@0400 PRN PRN Reason: Extra cloth needed Stop: 09/08/18 03:59 Chlorhexidine Gluconate (Peridex 0.12% Oral Kit) 15 ml OROPHARYNG BID@0800, 2000 [facility] Last Admin: 09/03/18 08:35 Dose: 15 ml Dextrose (D50w Vial) 50 ml IV.PUSH UNSCH PRN PRN Reason: PER HYPOGLYCEMIA PROTOCOL Fentanyl Citrate (Fentanyl Inj) 50 mcg IV.PUSH Q1H PRN PRN Reason: PAIN SCALE 1 TO 10 Furosemide (Lasix Inj) 40 mg IV.PUSH BID@0900,1800 [facility] Last Admin: 09/03/18 08:35 Dose: 40 mg Glucagon (Glucagon Inj) 1 mg OTHER PRN PRN PRN Reason: for Hypoglycemia Protocol Heparin Sodium/Dextrose (Heparin/D5w 25,000 U/250 Ml) 25,000 unit in 250 mls @ 0 mls/hr IV.CONT TITRATE PRN; Protocol PRN Reason: Per Protocol Last Admin: 09/03/18 04:54 Dose: 1,000 units/hr, 10 mls/hr Propofol (Diprivan 1000 Mg/100 Ml Inj) 1,000 mg in 100 mls @ 2.517 mls/hr IV.CONT TITRATE PRN; Protocol PRN Reason: Per Protocol Last Admin: 09/03/18 09:43 Dose: 5 mcg/kg/min, 2.52 mls/hr Norepinephrine Bitartrate 16 (mg/ Sodium Chloride) 250 mls @ 1.87 mls/hr IV.CONT TITRATE PRN; Protocol PRN Reason: See Protocol Last Titration: 09/03/18 04:38 Dose: Infused Nitroglycerin/Dextrose (Nitroglycerin Drip Premix) 50 mg in 250 mls @ 1.5 mls/ hr IV.CONT TITRATE PRN; Protocol PRN Reason: Per Protocol Last Titration: 09/03/18 06:20 Dose: Infused Insulin Aspart (Novolog Insulin Correctional Sugar Inj) 0 unit SQ Q6HR [facility]; Protocol Last Admin: 09/03/18 05:11 Dose: Not Given Lactulose (Lactulose Liq) 30 ml PO DAILY PRN PRN Reason: SEVERE CONSITIPATION Levothyroxine Sodium (Synthroid) 88 mcg PO DAILY@0600 [facility] Last Admin: 09/03/18 05:11 Dose: 88 mcg Miscellaneous Medication () 1 each OROPHARYNG 0000,0400,1200,1600 [facility] Last Admin: 09/03/18 04:54 Dose: 1 each Ondansetron HCl (Zofran Inj) 4 mg IV.PUSH Q6H PRN PRN Reason: NAUSEA OR VOMITING Pantoprazole Sodium (Protonix Inj) 40 mg IV.PUSH DAILY [facility] Last Admin: 09/03/18 08:35 Dose: 40 mg Promethazine HCl (Phenergan Inj) 25 mg IV.CENTRAL Q6H PRN PRN Reason: BREAKTHROUGH NAUSEA Senna/Docusate Sodium (Tahmina-Colace) 1 tab PO BID [facility] Last Admin: 09/03/18 08:38 Dose: Not Given Sennosides (Senokot) 17.2 mg PO Q12H PRN PRN Reason: Moderate Constipation Sodium Chloride (Ns Flush) 2 ml IV.FLUSH BID [facility] Last Admin: 09/03/18 08:38 Dose: 2 ml Sodium Chloride (Ns Flush) 2 ml IV.FLUSH PRN PRN PRN Reason: FLUSH AFTER USING IV ACCESS Last Admin: 09/02/18 12:09 Dose: 2 ml Terbutaline Sulfate (Brethine Inj) 1 mg SQ UNSCH PRN PRN Reason: For Extravasation Allergies Allergy/AdvReac Type Severity Reaction Status Date / Time aspirin Allergy Severe Bleeding Verified 09/02/18 16:03 diclofenac Allergy Severe Hives Verified 09/02/18 07:58 etodolac Allergy Severe Hives Verified 09/02/18 07:58 flurbiprofen Allergy Severe Hives Verified 09/02/18 07:58 ibuprofen Allergy Severe Hives Verified 09/02/18 07:58 indomethacin Allergy Severe Hives Verified 09/02/18 07:58 ketoprofen Allergy Severe Hives Verified 09/02/18 07:58 ketorolac Allergy Severe Hives Verified 09/02/18 07:58 naproxen Allergy Severe Hives Verified 09/02/18 07:58 NSAIDS (Non-Steroidal Allergy Severe Bleeding Verified 09/02/18 16:03 Anti-Inflamma oxaprozin Allergy Severe Hives Verified 09/02/18 07:58 Home Medications Medication Instructions Recorded Confirmed Type amlodipine 5 mg PO DAILY 09/02/18 09/02/18 History carvedilol 3.125 mg PO BID 09/02/18 09/02/18 History furosemide [Lasix] 40 mg PO BID 09/02/18 09/02/18 History glipizide 5 mg PO DAILY 09/02/18 09/02/18 History levothyroxine [Synthroid] 88 mcg PO DAILY 09/02/18 09/02/18 History potassium chloride 10 meq PO DAILY 09/02/18 09/02/18 History Physical Exam Vital signs: Vital Signs 09/02/18 11:00 09/02/18 11:06 09/02/18 12:00 Temperature Pulse Rate 59 L 56 L 71 Respiratory Rate 27 H 24 24 Blood Pressure 146/72 H Pulse Oximetry 99 95 09/02/18 12:01 09/02/18 13:00 09/02/18 13:13 Temperature Pulse Rate 71 70 Respiratory Rate 24 24 24 Blood Pressure 164/75 H 173/79 H Pulse Oximetry 95 100 100 09/02/18 14:00 09/02/18 15:00 09/02/18 15:05 Temperature Pulse Rate 78 89 87 Respiratory Rate 24 26 H 24 Blood Pressure 181/79 H 164/87 H Pulse Oximetry 100 99 97 09/02/18 15:09 09/02/18 16:00 09/02/18 16:01 Temperature Pulse Rate 86 87 86 Respiratory Rate 26 H 24 15 Blood Pressure 182/74 H Pulse Oximetry 99 99 09/02/18 16:07 09/02/18 16:09 09/02/18 17:00 Temperature Pulse Rate 84 79 Respiratory Rate 24 24 24 Blood Pressure 157/67 H 159/73 H Pulse Oximetry 100 100 100 09/02/18 18:00 09/02/18 19:00 09/02/18 20:00 Temperature 99.8 F H Pulse Rate 80 79 80 Respiratory Rate 7 L 24 16 Blood Pressure 163/74 H 154/71 H 145/67 H Pulse Oximetry 100 100 100 09/02/18 20:36 09/02/18 20:42 09/02/18 20:45 Temperature Pulse Rate 84 86 Respiratory Rate 24 24 24 Blood Pressure 118/59 L 120/58 L Pulse Oximetry 100 100 100 09/02/18 20:47 09/02/18 21:00 09/02/18 21:15 Temperature Pulse Rate 86 85 87 Respiratory Rate 24 24 24 Blood Pressure 111/57 L 114/56 L Pulse Oximetry 100 100 09/02/18 21:30 09/02/18 21:45 09/02/18 22:00 Temperature Pulse Rate 84 83 85 Respiratory Rate 24 24 24 Blood Pressure 122/59 L 124/59 L 118/55 L Pulse Oximetry 100 100 100 09/02/18 22:15 09/02/18 22:30 09/02/18 22:45 Temperature Pulse Rate 86 84 84 Respiratory Rate 24 23 0 L Blood Pressure 105/54 L 104/56 L 104/56 L Pulse Oximetry 100 100 100 09/02/18 22:49 09/02/18 22:51 09/02/18 23:00 Temperature Pulse Rate 84 84 84 Respiratory Rate 24 16 24 Blood Pressure 108/56 L 99/55 L 98/51 L Pulse Oximetry 100 100 100 09/02/18 23:15 09/02/18 23:30 09/02/18 23:45 Temperature Pulse Rate 80 79 76 Respiratory Rate 24 24 24 Blood Pressure 99/52 L 103/56 L 109/55 L Pulse Oximetry 100 100 100 09/02/18 23:48 09/03/18 00:00 09/03/18 00:15 Temperature 100.8 F H Pulse Rate 76 74 76 Respiratory Rate 24 24 24 Blood Pressure 95/51 L 101/55 L Pulse Oximetry 100 100 100 09/03/18 00:30 09/03/18 00:45 09/03/18 01:00 Temperature Pulse Rate 76 76 74 Respiratory Rate 24 24 24 Blood Pressure 100/55 L 95/53 L 104/55 L Pulse Oximetry 100 100 100 09/03/18 01:15 09/03/18 01:30 09/03/18 01:45 Temperature Pulse Rate 72 73 72 Respiratory Rate 24 24 24 Blood Pressure 104/58 L 112/58 L 117/58 L Pulse Oximetry 100 100 100 09/03/18 02:00 09/03/18 02:15 09/03/18 02:30 Temperature Pulse Rate 71 73 70 Respiratory Rate 24 24 24 Blood Pressure 124/58 L 125/60 112/57 L Pulse Oximetry 100 100 100 09/03/18 02:45 09/03/18 03:00 09/03/18 03:15 Temperature Pulse Rate 71 72 70 Respiratory Rate 24 24 24 Blood Pressure 126/58 L 114/56 L 128/59 L Pulse Oximetry 100 100 100 09/03/18 03:30 09/03/18 03:45 09/03/18 04:00 Temperature 99.1 F Pulse Rate 67 71 68 Respiratory Rate 24 24 24 Blood Pressure 114/54 L 122/58 L 120/56 L Pulse Oximetry 100 100 100 09/03/18 04:15 09/03/18 04:24 09/03/18 04:30 Temperature Pulse Rate 68 68 69 Respiratory Rate 24 24 24 Blood Pressure 133/67 120/55 L Pulse Oximetry 100 100 100 09/03/18 04:45 09/03/18 05:00 09/03/18 05:15 Temperature Pulse Rate 65 69 64 Respiratory Rate 24 24 24 Blood Pressure 119/59 L 137/62 132/63 Pulse Oximetry 100 100 100 09/03/18 05:30 09/03/18 05:45 09/03/18 06:00 Temperature Pulse Rate 68 66 66 Respiratory Rate 24 24 24 Blood Pressure 128/64 114/59 L 106/54 L Pulse Oximetry 100 100 100 09/03/18 06:15 09/03/18 06:30 09/03/18 06:45 Temperature Pulse Rate 67 59 L 64 Respiratory Rate 24 18 18 Blood Pressure 111/57 L 145/65 H 136/64 Pulse Oximetry 100 100 100 09/03/18 07:00 09/03/18 07:15 09/03/18 07:30 Temperature Pulse Rate 60 62 62 Respiratory Rate 18 18 18 Blood Pressure 123/58 L 114/54 L 119/58 L Pulse Oximetry 100 100 100 09/03/18 07:45 09/03/18 08:00 09/03/18 08:15 Temperature Pulse Rate 69 58 L 64 Respiratory Rate 21 18 11 L Blood Pressure 128/63 129/60 133/64 Pulse Oximetry 100 100 100 09/03/18 08:30 09/03/18 08:45 09/03/18 09:00 Temperature Pulse Rate 66 63 64 Respiratory Rate 12 9 L 10 L Blood Pressure 172/74 H 159/72 H 154/71 H Pulse Oximetry 100 100 100 09/03/18 09:15 09/03/18 09:30 09/03/18 09:45 Temperature Pulse Rate 60 66 58 L Respiratory Rate 5 L 12 9 L Blood Pressure 120/60 160/70 H 146/66 H Pulse Oximetry 100 100 100 09/03/18 10:00 09/03/18 10:15 09/03/18 10:30 Temperature Pulse Rate 54 L 54 L 59 L Respiratory Rate 7 L 8 L 11 L Blood Pressure 137/65 137/65 132/62 Pulse Oximetry 100 100 100 09/03/18 10:45 Temperature Pulse Rate 51 L Respiratory Rate 8 L Blood Pressure 129/61 Pulse Oximetry 100 Intake & Output 09/02/18 09/03/18 09/03/18 18:59 06:59 18:59 Intake Total 700 / 700 384 / 384 100 / 100 Output Total 2450 / 2450 225 / 225 Balance -1750 / -1750 159 / 159 100 / 100 Weight 106.1 kg Intake: IV 700 / 700 384 / 384 100 / 100 Heparin/D5W 25,000 U/250 mL 25, 250 / 250 000 unit In 250 ml @ Per Protocol IV.CONT TITRATE PRN Rx #:[id number] Nitroglycerin Drip Premix 50 mg 250 / 250 32 / 32 In 250 ml @ 5 MCG/MIN 1.5 mls/ hr IV.CONT TITRATE PRN Rx#: [id number] Levophed Inj 16 MG In NS Inj 2 / 2 234 ML @ 2 MCG/MIN 1.87 mls/hr IV.CONT TITRATE PRN Rx#: [id number] Diprivan 1000 mg/100 ml Inj 1, 200 / 200 100 / 100 100 / 100 000 mg In 100 ml @ 5 MCG/KG/MIN 2.517 mls/hr IV.CONT TITRATE PRN Rx#:[id number] fentaNYL 10 mcg/mL Premix Drip 250 / 250 2,500 mcg In 250 ml @ 50 MCG/HR 5 mls/hr IV.SIG TITRATE PRN Rx #:[id number] Output: Urine 1850 / 1850 225 / 225 Urine Amount (Catheter) 600 / 600 Indwelling Urethral Catheter 600 / 600 Other: # Bowel Movements 0 - Constitutional Comments: intubated/sedated - Routine HEENT Exam Head: Present: normocephalic ENT: Present: mucous membranes moist - Routine Neck Exam Present: supple - Routine Respiratory Exam Present: patient mechanically ventilated - Urinary Catheter Management Indwelling Urethral Catheter Cath placed during this visit: yes, but has since been removed by the nurse Reason for continuing: Decision to DC catheter Insertion date: 09/02/18 Insertion time: 06:40 Removal date: 09/02/18 Removal time: 18:00 Results 09/03/18 03:45 09/03/18 03:45 Cardiac Enzymes 09/02/18 09/02/18 09/02/18 Range/Units 06:25 06:25 06:25 AST 31 (15-37) U/L CK-MB (CK-2) 1.8 (0.5-3.6) ng/mL Troponin I 0.14 H 0.15 H (0.02-0.05) ng/mL B-Natriuretic Peptide 707 H (0-100) pg/mL 09/02/18 09/02/18 09/03/18 Range/Units 11:52 21:15 00:15 AST (15-37) U/L CK-MB (CK-2) (0.5-3.6) ng/mL Troponin I 0.17 H 0.26 H 0.23 H (0.02-0.05) ng/mL B-Natriuretic Peptide (0-100) pg/mL 09/03/18 09/03/18 Range/Units 03:45 03:45 AST 20 (15-37) U/L CK-MB (CK-2) (0.5-3.6) ng/mL Troponin I 0.19 H (0.02-0.05) ng/mL B-Natriuretic Peptide (0-100) pg/mL Coagulation 09/02/18 09/02/18 09/02/18 Range/Units 06:25 06:25 15:39 PT 10.5 (9.8-11.6) sec APTT 26.0 49.5 H D (23.4-31.7) sec B-Natriuretic Peptide 707 H (0-100) pg/mL 09/02/18 09/03/18 Range/Units 21:15 03:45 PT 12.0 H (9.8-11.6) sec APTT 54.3 H 72.8 H D (23.4-31.7) sec B-Natriuretic Peptide (0-100) pg/mL Lipids 09/02/18 Range/Units 19:28 Triglycerides 54 (42-150) mg/dL Cholesterol 165 (120-200) mg/dL HDL Cholesterol 62.3 H (40.0-60.0) mg/dL Cholesterol/HDL Ratio 2.64 Ratio CBC 09/02/18 09/03/18 Range/Units 06:25 03:45 WBC 5.9 5.6 (4.0-11.0) th/mm3 RBC 5.01 3.98 L (4.50-5.90) mil/mm3 Hgb 14.5 11.4 L D (13.0-17.0) gm/dL Hct 43.1 33.3 L (39.0-51.0) % Plt Count 127 L 107 L (150-450) th/mm3 Neut # (Auto) 2.0 4.3 (1.8-7.7) th/mm3 Lymph # (Auto) 3.2 0.9 L (1.0-4.8) th/mm3 [place] # (Auto) 0.6 0.4 (0.0-0.9) th/mm3 Eos # (Auto) 0.1 0.0 (0.0-0.4) th/mm3 Baso # (Auto) 0.0 0.0 (0.0-0.2) th/mm3 Comprehensive Metabolic Panel 09/02/18 09/02/18 09/02/18 Range/Units 06:25 06:25 19:28 Sodium 141 141 (136-145) meq/L Potassium 4.2 3.7 (3.5-5.1) meq/L Chloride 108 H 109 H (98-107) meq/L Carbon Dioxide 27.3 23.3 (21.0-32.0) meq/L BUN 27 H 32 H (7-18) mg/dL Creatinine 2.26 H 2.43 H (0.60-1.30) mg/dL Calcium 8.4 L 8.5 8.3 L (8.5-10.1) mg/dL AST 31 (15-37) U/L ALT 29 (12-78) U/L Alkaline Phosphatase 101 (45-117) U/L Total Protein 8.8 H (6.4-8.2) g/dL Albumin 3.9 (3.4-5.0) g/dL 09/03/18 Range/Units 03:45 Sodium 143 (136-145) meq/L Potassium 3.8 (3.5-5.1) meq/L Chloride 109 H (98-107) meq/L Carbon Dioxide 22.9 (21.0-32.0) meq/L BUN 39 H (7-18) mg/dL Creatinine 3.13 H (0.60-1.30) mg/dL Calcium 8.0 L (8.5-10.1) mg/dL AST 20 (15-37) U/L ALT 21 (12-78) U/L Alkaline Phosphatase 57 (45-117) U/L Total Protein 6.0 L D (6.4-8.2) g/dL Albumin 2.5 L D (3.4-5.0) g/dL Intake and Output 09/02/18 09/03/18 09/03/18 22:59 06:59 14:59 Intake Total 100 / 100 384 / 384 100 / 100 Output Total 1850 / 1850 225 / 225 Balance -1750 / -1750 159 / 159 100 / 100 Intake: IV 100 / 100 384 / 384 100 / 100 Heparin/D5W 25,000 U/250 mL 25, 250 / 250 000 unit In 250 ml @ Per Protocol IV.CONT TITRATE PRN Rx #:[id number] Nitroglycerin Drip Premix 50 mg 32 / 32 In 250 ml @ 5 MCG/MIN 1.5 mls/ hr IV.CONT TITRATE PRN Rx#: [id number] Levophed Inj 16 MG In NS Inj 2 / 2 234 ML @ 2 MCG/MIN 1.87 mls/hr IV.CONT TITRATE PRN Rx#: [id number] Diprivan 1000 mg/100 ml Inj 1, 100 / 100 100 / 100 100 / 100 000 mg In 100 ml @ 5 MCG/KG/MIN 2.517 mls/hr IV.CONT TITRATE PRN Rx#:[id number] Output: Urine 1850 / 1850 225 / 225 Other: # Bowel Movements 0 Weight 106.1 kg - Imaging and Cardiology Imaging: Impressions Chest X-Ray 09/02/18 00:00 CONCLUSION: Interval placement of endotracheal tube which appears appropriate in position. Diffuse bilateral airspace consolidation somewhat worse than seen on prior exam. Venous Doppler Study 09/02/18 00:00 CONCLUSION: 1. Bilateral subcutaneous soft tissue edema within the bilateral calves without evidence of deep venous thrombosis. Chest X-Ray 09/02/18 06:13 CONCLUSION: Diffuse consolidation likely related to diffuse processes such as edema. Blunting of the costophrenic angles suggestive of mild effusions. Abdomen/Bladder Ultrasound 09/02/18 08:09 CONCLUSION: 1. The renal parenchyma is increased in echogenicity bilaterally. Cortical thickness is normal. No evidence of hydronephrosis. Lines are compatible with chronic medical renal disease. Chest X-Ray 09/02/18 09:20 CONCLUSION: Endotracheal tube appears appropriate in position. Stable diffuse airspace consolidation. Abdomen X-Ray 09/02/18 14:45 CONCLUSION: Unremarkable study. Chest X-Ray 09/03/18 08:02 CONCLUSION: Persistent areas of consolidation and airspace opacity with slight improvement in the midlungs. Assessment and Plan - Assessment (1) NICM (nonischemic cardiomyopathy) Code(s): I42.8 - Other cardiomyopathies Status: Acute Plan: Office chart notes non-ischemic cardiomyopathy; ef last year not as low as seen here though; continue medical mgt; on bb; sari/arb held for now due to renal failure/low bp's (2) Elevated troponin Code(s): R74.8 - Abnormal levels of other serum enzymes Status: Acute Plan: likely due to chf/ckd; known non-ischemic cardiomyopathy (3) Acute on chronic systolic (congestive) heart failure Code(s): I50.23 - Acute on chronic systolic (congestive) heart failure Status : Acute Plan: on IV lasix, diuresing (4) Respiratory failure requiring intubation Code(s): J96.90 - Respiratory failure, unspecified, unspecified whether with hypoxia or hypercapnia Status: Acute (5) CHF (congestive heart failure) Code(s): I50.9 - Heart failure, unspecified Status: Acute (5) CHF (congestive heart failure) Qualifiers: Heart failure type: unspecified Heart failure chronicity: unspecified Qualified Code(s): I50.9 - Heart failure, unspecified
--- NOTE | 2018-09-03 15:36 | ECG ---
Date Performed: 09/02/2018 Time Performed: 07:36:00 PTAGE: 88 years EKG: Sinus rhythm WITH FIRST DEGREE AV BLOCK POSSIBLE LEFT ATRIAL ENLARGEMENT SEPTAL MYOCARDIAL INFARCTION MODERATE T- WAVE ABNORMALITY, CONSIDER LATERAL ISCHEMIA When compared to previous tracing, sinus rate is slower. ST depressions remain. ABNORMAL ECG PREVIOUS TRACING : 09/02/2018 06.16 DOCTOR: Michael Carrillo Interpretating Date/Time 09/03/2018 15:34:11
--- NOTE | 2018-09-03 15:36 | ECG ---
Date Performed: 09/02/2018 Time Performed: 12:50:03 PTAGE: 88 years EKG: Sinus rhythm WITH FIRST DEGREE AV BLOCK POSSIBLE LEFT ATRIAL ENLARGEMENT SEPTAL MYOCARDIAL INFARCTION , OF INDETE RMINATE AGE MODERATE T-WAVE ABNORMALITY, CONSIDER LATERAL ISCHEMIA Since previous tracing, no signifi cant change noted ABNORMAL ECG PREVIOUS TRACING : 09/02/2018 07.36 DOCTOR: Michael Carrillo Interpretating Date/Time 09/03/2018 15:34:22
[2018-09-03] MEDS ORDERED: Sod Chloride 0.9% Inj 1,000 ML IV.SIG SCH (18:45)
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
[2018-09-04] MEDS: Insulin NovoLOG Aspart Correctional Sugar Inj SQ SCH ×4 (00:48→19:54)
[2018-09-04] MEDS: Oral Hygiene Kit OROPHARYNG SCH ×4 (00:56→19:43)
[2018-09-04] MEDS: Artificial Tears Opth Drops 15 ML Bottle EACH EYE SCH ×3 (00:57→19:43)
[2018-09-04 04:50] LABS: Baso % (Auto) 0.1 % (0.0-2.0); Eos # (Auto) 0.1 th/mm3 (0.0-0.4); Eos % (Auto) 1.9 % (0.0-4.0); Hemoglobin 10.8 gm/dL (13.0-17.0); Lymph # (Auto) 0.7 th/mm3 (1.0-4.8); Lymph % (Auto) 13.7 % (9.0-44.0); Mean Corpuscular HGB Conc 33.7 % (32.0-36.0); Mean Corpuscular Hemoglobin 28.7 pg (27.0-34.0); Mean Corpuscular Volume 85.3 fL (80.0-100.0); Mean Platelet Volume 8.4 fL (7.0-11.0); Mono # (Auto) 0.5 th/mm3 (0.0-0.9); Mono % (Auto) 8.4 % (0.0-8.0); Neut # (Auto) 4.1 th/mm3 (1.8-7.7); Neut % (Auto) 75.9 % (16.0-70.0); Platelet Count 98 th/mm3 (150-450); Red Blood Count 3.75 mil/mm3 (4.50-5.90); Red Cell Distribution Width 17.2 % (11.6-17.2); White Blood Count 5.5 th/mm3 (4.0-11.0)
[2018-09-04 05:12] LABS: Calcium 7.6 mg/dL (8.5-10.1); Carbon Dioxide 28.9 meq/L (21.0-32.0); Magnesium 2.2 mg/dL (1.5-2.5); Phosphorus 3.8 mg/dL (2.5-4.9); Potassium 3.3 meq/L (3.5-5.1)
[2018-09-04 05:15] LABS: Troponin I 0.2 ng/mL (0.02-0.05)
[2018-09-04] MEDS: Heparin Drip 25,000 UNIT/250 ML BAG IV.CONT PRN (05:44)
[2018-09-04] MEDS: Chlorhexidine Gluconate 2% 1 Pack (2 Cloths) TOPICAL SCH (05:45)
[2018-09-04] MEDS: Levothyroxine 88 MCG Tablet PO SCH (05:45)
--- NOTE | 2018-09-04 05:47 | XR ---
EXAM DATE: 09/04/2018 5:40 AM EST AGE/SEX: 88 years / Male INDICATIONS: Short of breath. CLINICAL DATA: This is the patient's subsequent encounter. Patient reports that signs and symptoms h ave been present for 1 week and indicates a pain score of 0/10. MEDICAL/SURGICAL HISTORY: Non-responsive. Non-responsive. COMPARISON: C, CHEST 1V SINGLE AP, 09/03/2018. . FINDINGS: ET tube tip well above the brennan. Gastric tube side-port project within the stomach. The catheter ti p projects over the origin of the superior vena cava. There is persisting consolidation in the left m id and lower lung with loss of delineation of the entire left hemidiaphragm. Patchy areas of infiltra te in the right lower lung slightly more prominent than on prior. CONCLUSION: 1. Persistent left lower lung consolidation. 2. Increasing nonconsolidative infiltrates in the lower right lung. Electronically signed by: Gilberto Kenney MD Board Certified Radiologist 09/04/2018 5:45 AM EST
[2018-09-04 07:42] LABS: Platelet Morphology Normal (Normal)
[2018-09-04 08:15] LABS: ABG PCO2 44 mmHg (38-42); ABG PO2 106 mmHG (61-120)
[2018-09-04] MEDS: Chlorhexidine 0.12% Oral Kit 15 ML UDC OROPHARYNG SCH ×2 (09:28→21:12)
[2018-09-04] MEDS: Senna/Docusate Sodium 8.6/50 MG Tablet PO SCH ×2 (09:29→21:13)
[2018-09-04] MEDS: Pantoprazole Inj 40 MG Vial IV.PUSH SCH (09:29)
[2018-09-04] MEDS: RESP: Albuterol Concentrated 2.5 MG/0.5 ML Neb NEB SCH ×4 (11:07→14:36)
--- NOTE | 2018-09-04 15:38 | P.PNCC ---
Subjective Subjective Remarks/Hospital Course: 09/03; Last evening , nitroglycerin infusion discontinued secondary to hypotension. The patient is normotensive at this time throughout the evening and night. Chest x-ray still reveals consolidation but FiO2 requirements have significantly decreased. ABG this a.m. is pending. Troponins noted to be downtrending. Plan to initiate CPAP trials this a.m.. Creatinine continues to remain elevated nephrology has been consulted, appreciate recommendations. 09/04: PT trials early this a.m. patient successfully passed patient was extubated this a.m. Formal speech swallow evaluation performed patient placed on regular diet to begin this afternoon. Patient denies angina. Physical therapy evaluated patient. Objective Vital Signs / I&O: Vital Signs 09/03/18 15:31 09/03/18 15:45 09/03/18 16:00 Temperature Pulse Rate 63 56 L 61 Respiratory Rate 13 14 15 Blood Pressure 177/72 H 160/70 H 161/71 H Pulse Oximetry 100 100 100 09/03/18 16:15 09/03/18 16:30 09/03/18 16:45 Temperature Pulse Rate 58 L 52 L 57 L Respiratory Rate 14 15 15 Blood Pressure 157/70 H 152/68 H 152/69 H Pulse Oximetry 100 100 100 09/03/18 17:00 09/03/18 17:16 09/03/18 17:30 Temperature Pulse Rate 52 L 72 80 Respiratory Rate 14 17 22 Blood Pressure 150/67 H 183/79 H 182/83 H Pulse Oximetry 100 100 100 09/03/18 17:45 09/03/18 18:00 09/03/18 18:01 Temperature Pulse Rate 83 67 63 Respiratory Rate 28 H 17 17 Blood Pressure 169/90 H 163/74 H Pulse Oximetry 100 99 99 09/03/18 18:15 09/03/18 18:30 09/03/18 18:45 Temperature Pulse Rate 77 70 63 Respiratory Rate 19 16 15 Blood Pressure 171/81 H 168/76 H 156/70 H Pulse Oximetry 100 100 99 09/03/18 19:00 09/03/18 19:16 09/03/18 19:30 Temperature Pulse Rate 61 72 70 Respiratory Rate 14 17 16 Blood Pressure 151/70 H 172/74 H 176/79 H Pulse Oximetry 100 97 99 09/03/18 19:46 12/17/18 20:00 09/03/18 20:15 Temperature 99 F Pulse Rate 66 65 72 Respiratory Rate 15 15 17 Blood Pressure 151/70 H 169/74 H 156/59 H Pulse Oximetry 100 99 99 09/03/18 20:22 09/03/18 20:31 09/03/18 20:45 Temperature Pulse Rate 75 64 66 Respiratory Rate 17 16 15 Blood Pressure 145/66 H 163/67 H Pulse Oximetry 100 99 99 09/03/18 21:00 09/03/18 21:04 09/03/18 21:06 Temperature Pulse Rate 67 65 63 Respiratory Rate 17 15 15 Blood Pressure 167/74 H 161/72 H 162/68 H Pulse Oximetry 100 100 100 09/03/18 21:15 09/03/18 21:30 09/03/18 21:45 Temperature Pulse Rate 64 63 71 Respiratory Rate 14 14 15 Blood Pressure 156/72 H 164/73 H 184/83 H Pulse Oximetry 100 99 100 09/03/18 22:00 09/03/18 22:15 09/03/18 22:30 Temperature Pulse Rate 65 66 66 Respiratory Rate 13 12 12 Blood Pressure 158/71 H 140/65 145/65 H Pulse Oximetry 100 99 99 09/03/18 22:44 09/03/18 22:45 09/03/18 23:00 Temperature Pulse Rate 63 66 68 Respiratory Rate 14 16 13 Blood Pressure 138/62 138/64 Pulse Oximetry 99 99 99 09/03/18 23:15 09/03/18 23:30 09/03/18 23:45 Temperature Pulse Rate 63 64 66 Respiratory Rate 16 16 16 Blood Pressure 133/62 126/62 143/65 H Pulse Oximetry 99 99 99 09/03/18 23:47 09/04/18 00:00 09/04/18 00:15 Temperature 98.8 F Pulse Rate 66 62 69 Respiratory Rate 16 15 16 Blood Pressure 139/64 157/74 H Pulse Oximetry 99 99 99 09/04/18 00:30 09/04/18 00:45 09/04/18 01:00 Temperature Pulse Rate 62 61 58 L Respiratory Rate 13 12 14 Blood Pressure 155/73 H 151/68 H 142/55 H Pulse Oximetry 100 100 100 09/04/18 01:15 09/04/18 01:27 09/04/18 01:30 Temperature Pulse Rate 61 60 63 Respiratory Rate 15 14 16 Blood Pressure 121/58 L 128/60 120/60 Pulse Oximetry 99 100 100 09/04/18 01:45 09/04/18 02:00 09/04/18 02:01 Temperature Pulse Rate 60 60 62 Respiratory Rate 14 14 15 Blood Pressure 126/59 L 158/70 H Pulse Oximetry 100 100 100 09/04/18 02:15 09/04/18 02:30 09/04/18 02:45 Temperature Pulse Rate 74 79 72 Respiratory Rate 16 20 15 Blood Pressure 173/74 H 172/74 H 158/70 H Pulse Oximetry 100 98 99 09/04/18 03:00 09/04/18 03:15 09/04/18 03:30 Temperature Pulse Rate 67 64 65 Respiratory Rate 15 6 L 12 Blood Pressure 161/73 H 162/75 H 158/72 H Pulse Oximetry 100 100 100 09/04/18 03:46 09/04/18 04:00 09/04/18 04:16 Temperature 98.9 F Pulse Rate 74 65 64 Respiratory Rate 19 14 15 Blood Pressure 141/73 H 140/65 125/60 Pulse Oximetry 99 99 99 09/04/18 04:26 09/04/18 04:30 09/04/18 04:45 Temperature Pulse Rate 66 63 63 Respiratory Rate 12 10 L 15 Blood Pressure 163/69 H 160/70 H Pulse Oximetry 100 99 100 09/04/18 05:00 09/04/18 05:46 09/04/18 06:00 Temperature Pulse Rate 63 77 69 Respiratory Rate 15 18 16 Blood Pressure 182/111 H Pulse Oximetry 100 99 100 09/04/18 06:01 09/04/18 06:03 09/04/18 06:15 Temperature Pulse Rate 71 74 67 Respiratory Rate 16 14 18 Blood Pressure 206/81 H 175/80 H 182/81 H Pulse Oximetry 100 100 100 09/04/18 06:30 09/04/18 07:30 09/04/18 07:46 Temperature Pulse Rate 65 84 92 H Respiratory Rate 16 17 21 Blood Pressure 171/81 H 158/66 H 185/86 H Pulse Oximetry 100 100 98 09/04/18 07:55 09/04/18 07:57 09/04/18 08:00 Temperature Pulse Rate 99 H 79 Respiratory Rate 16 18 Blood Pressure 174/73 H Pulse Oximetry 100 99 09/04/18 08:16 09/04/18 08:31 09/04/18 08:45 Temperature Pulse Rate 86 81 85 Respiratory Rate 20 17 21 Blood Pressure 190/87 H 145/67 H 147/64 H Pulse Oximetry 99 99 93 L 09/04/18 09:00 09/04/18 09:15 09/04/18 09:30 Temperature Pulse Rate 82 90 77 Respiratory Rate 19 20 23 Blood Pressure 172/75 H 181/82 H 162/73 H Pulse Oximetry 91 L 91 L 98 09/04/18 09:45 09/04/18 10:00 09/04/18 10:31 Temperature Pulse Rate 83 86 98 H Respiratory Rate 21 23 25 H Blood Pressure 162/77 H 204/89 H Pulse Oximetry 98 97 97 09/04/18 10:44 09/04/18 10:45 09/04/18 11:00 Temperature Pulse Rate 77 76 82 Respiratory Rate 21 22 24 Blood Pressure 178/71 H 171/77 H 185/88 H Pulse Oximetry 99 98 99 09/04/18 11:09 09/04/18 11:16 09/04/18 11:31 Temperature Pulse Rate 76 81 77 Respiratory Rate 18 21 23 Blood Pressure 214/81 H 167/72 H Pulse Oximetry 99 100 09/04/18 11:35 09/04/18 11:46 09/04/18 12:00 Temperature Pulse Rate 72 80 77 Respiratory Rate 16 23 21 Blood Pressure 185/106 H 172/74 H Pulse Oximetry 96 97 09/04/18 12:15 09/04/18 12:30 09/04/18 12:46 Temperature Pulse Rate 80 78 89 Respiratory Rate 22 21 22 Blood Pressure 186/79 H 152/51 H 187/116 H Pulse Oximetry 97 98 92 L 09/04/18 13:00 09/04/18 13:16 09/04/18 13:31 Temperature Pulse Rate 82 82 84 Respiratory Rate 23 22 21 Blood Pressure 203/72 H 188/145 H Pulse Oximetry 97 95 94 L 09/04/18 13:46 Temperature Pulse Rate 82 Respiratory Rate 23 Blood Pressure 172/135 H Pulse Oximetry 94 L Intake & Output 09/03/18 09/04/18 09/04/18 18:59 06:59 18:59 Intake Total 100 / 100 550 / 550 100 / 100 Output Total 1650 / 1650 2350 / 2350 Balance -1550 / -1550 -1800 / -1800 100 / 100 Weight 104.5 kg Intake: IV 100 / 100 250 / 250 100 / 100 Heparin/D5W 25,000 U/250 mL 25, 250 / 250 000 unit In 250 ml @ Per Protocol IV.CONT TITRATE PRN Rx #:[id number] Diprivan 1000 mg/100 ml Inj 1, 100 / 100 100 / 100 000 mg In 100 ml @ 5 MCG/KG/MIN 2.517 mls/hr IV.CONT TITRATE PRN Rx#:[id number] Water Bolus Amount 300 / 300 Output: Urine 1650 / 1650 2350 / 2350 Other: # Bowel Movements 0 Result Diagrams: 09/04/18 04:32 09/04/18 04:32 Objective Remarks: GENERAL: This is a well-developed well-nourished, obese -[place] elderly male patient currently in no acute distress SKIN: Warm and dry. HEAD: Atraumatic. Normocephalic. EYES: Pupils equal and round. EOMI. No scleral icterus. No injection or drainage. ENT: No nasal bleeding or discharge. Mucous membranes pink and moist. On 2 L nasal cannula NECK: Trachea midline. Unable to assess JVD, secondary to body habitus. CARDIOVASCULAR: Normal rate, regular rhythm. RESPIRATORY: No accessory muscle use. Clear to auscultation. Breath sounds equal bilaterally. GASTROINTESTINAL: Abdomen soft, non-tender, obese, nondistended. No guarding. Normoactive bowel MUSCULOSKELETAL: Extremities without clubbing, cyanosis, or B/L lower extremity edema. No obvious deformities. Venous stasis bilateral lower extremities NEUROLOGICAL: GCS 15. Awake and alert. RASS 0. No gross focal/sensory deficits. Follows commands in all 4 extremities. Assessment and Plan - Problem List (1) Hypernatremia Code(s): E87.0 - Hyperosmolality and hypernatremia Status: Acute (2) Hyperglycemia Code(s): R73.9 - Hyperglycemia, unspecified Status: Acute (3) Diabetes mellitus Code(s): E11.9 - Type 2 diabetes mellitus without complications Status: Chronic (4) Hypothyroidism Code(s): E03.9 - Hypothyroidism, unspecified Status: Chronic (5) Bilateral lower extremity edema Code(s): R60.0 - Localized edema Status: Acute (6) Hypertension Code(s): I10 - Essential (primary) hypertension Status: Acute (7) Elevated troponin Code(s): R74.8 - Abnormal levels of other serum enzymes Status: Acute (8) Respiratory failure requiring intubation Code(s): J96.90 - Respiratory failure, unspecified, unspecified whether with hypoxia or hypercapnia Status: Acute (9) Non-ST elevation (NSTEMI) myocardial infarction Code(s): I21.4 - Non-ST elevation (NSTEMI) myocardial infarction Status: Acute (10) Acute renal insufficiency Code(s): N28.9 - Disorder of kidney and ureter, unspecified Status: Acute (11) CHF (congestive heart failure) Code(s): I50.9 - Heart failure, unspecified Status: Acute (12) Acute respiratory acidosis Code(s): E87.2 - Acidosis Status: Acute (13) Thrombocytopenia Code(s): D69.6 - Thrombocytopenia, unspecified Status: Acute (14) Chronic kidney disease Code(s): N18.9 - Chronic kidney disease, unspecified Status: Acute - Assessment and Plan Plan: Neuro/Psych: GCS 15 Acetaminophen 650 mg by tube every 6 hours as needed fever CV: History of congestive heart failure unknown etiology History of essential hypertension Elevated troponin Elevated BNP Patient's machine biller is Dr. Mireles. F/U cardiology recommendation Initial troponin 0.15->.26, now down trending 0.19. with normal sinus rhythm. ST elevation in the septal leads. Serial troponins until downward trend 09/03 2D echocardiogram -EF 20-25% with global hypokinesis moderate MR, trace TR Did not receive aspirin due to anti-inflammatory allergies/multiple. Continue low-dose beta-shalini. No BUSHRA inhibitor secondary to acute kidney injury. Continue atorvastatin 10 mg daily l Currently on a heparin drip 100u/hr Patient is on carvedilol 3.2 mg twice daily and amlodipine 5 mg daily at home Patient is on furosemide 40 mg p.o. twice daily at home Start on furosemide 4 mg IV twice daily. Received 80 mg x1 in the ED CVP monitoring Resp: Acute hypoxemic hypercapnic respiratory failure secondary to flash pulmonary edema Albuterol/ipratropium aerosols every 4 hours with albuterol every 2 as needed dyspnea Head of bed at 30 degrees Extubated 09/04 Spontaneous breathing trials and clinically indicated GI: Elevated total protein Formal swallow evaluation performed-initiate carb controlled, cardiac diet Pantoprazole for GI prophylaxis Docusate serum/senna 1 tablet twice daily for bowel regimen : Parikh catheter has been placed for accurate I's and O's in a critical patient on diuretics Endo: Diabetes mellitus Acute hyperglycemia Hypothyroidism Sliding scale insulin aspart insulin with Accu-Cheks to maintain euglycemia/ medium protocol Check hemoglobin A1c pending Continue levothyroxine 88 mcg daily Renal: Acute on chronic kidney injury Renal ultrasound-chronic medical disease Monitor urine output- 250cc overnight in 12 hours Accurate I's and O's Follow-up creatinine Avoid nephrotoxic medications Nephrology consulted, appreciate recommendations Heme: Thrombocytopenia Monitor CBC daily. Follow trends. No indication for transfusion of blood products this time. Currently on heparin drip per [place] protocol ID: Monitor for signs and symptomatology infection FEN: Acute hypernatremia- resolved Monitor BMP Replace electrolytes as clinically indicated Currently on normal saline at 30 cc an hour MSK: Bilateral lower extremity edema Physical therapy evaluate and treat 09/03 Dopplers duplex bilateral lower extremities-no evidence of DVT Access -Left IJ CVL day 2 placed 09/02 -Left femoral arterial line placed 09/02 Prophylaxis -GI -pantoprazole -DVT -heparin drip. Patient's son requesting no SCDs. Currently being fully anticoagulate. Level 2 follow-up. Plan transfer to [facility] in a.m. Code Status: Full Discussed Condition With: No family at bedside Case discussed with Dr. Falcon, cardiology and ENGAGEMENT DIRECTOR at bedside (3) Diabetes mellitus Qualifiers: Diabetes mellitus type: type 2 Diabetes mellitus jail insulin use: unspecified terminal operator insulin use status Diabetes mellitus complication status : with unspecified complications Qualified Code(s): E11.8 - Type 2 diabetes mellitus with unspecified complications (4) Hypothyroidism Qualifiers: Hypothyroidism type: unspecified Qualified Code(s): E03.9 - Hypothyroidism, unspecified (6) Hypertension Qualifiers: Hypertension type: unspecified Qualified Code(s): I10 - Essential (primary) hypertension (11) CHF (congestive heart failure) Qualifiers: Heart failure type: unspecified Heart failure chronicity: unspecified Qualified Code(s): I50.9 - Heart failure, unspecified
--- NOTE | 2018-09-04 18:30 | P.PNNP ---
Subjective Interval history: Patient is alert, now extubated, in mild resp. distress. Physical Exam Vital signs: Vital Signs 09/03/18 18:30 09/03/18 18:45 09/03/18 19:00 Temperature Pulse Rate 70 63 61 Respiratory Rate 16 15 14 Blood Pressure 168/76 H 156/70 H 151/70 H Pulse Oximetry 100 99 100 09/03/18 19:16 09/03/18 19:30 09/03/18 19:46 Temperature Pulse Rate 72 70 66 Respiratory Rate 17 16 15 Blood Pressure 172/74 H 176/79 H 151/70 H Pulse Oximetry 97 99 100 09/03/18 20:00 09/03/18 20:15 09/03/18 20:22 Temperature 99 F Pulse Rate 65 72 75 Respiratory Rate 15 17 17 Blood Pressure 169/74 H 156/59 H Pulse Oximetry 99 99 100 09/03/18 20:31 09/03/18 20:45 09/03/18 21:00 Temperature Pulse Rate 64 66 67 Respiratory Rate 16 15 17 Blood Pressure 145/66 H 163/67 H 167/74 H Pulse Oximetry 99 99 100 09/03/18 21:04 09/03/18 21:06 09/03/18 21:15 Temperature Pulse Rate 65 63 64 Respiratory Rate 15 15 14 Blood Pressure 161/72 H 162/68 H 156/72 H Pulse Oximetry 100 100 100 09/03/18 21:30 18 21:45 09/03/18 22:00 Temperature Pulse Rate 63 71 65 Respiratory Rate 14 15 13 Blood Pressure 164/73 H 184/83 H 158/71 H Pulse Oximetry 99 100 100 09/03/18 22:15 09/03/18 22:30 09/03/18 22:44 Temperature Pulse Rate 66 66 63 Respiratory Rate 12 12 14 Blood Pressure 140/65 145/65 H 138/62 Pulse Oximetry 99 99 99 09/03/18 22:45 09/03/18 23:00 09/03/18 23:15 Temperature Pulse Rate 66 68 63 Respiratory Rate 16 13 16 Blood Pressure 138/64 133/62 Pulse Oximetry 99 99 99 09/03/18 23:30 09/03/18 23:45 09/03/18 23:47 Temperature Pulse Rate 64 66 66 Respiratory Rate 16 16 16 Blood Pressure 126/62 143/65 H Pulse Oximetry 99 99 99 09/04/18 00:00 09/04/18 00:15 09/04/18 00:30 Temperature 98.8 F Pulse Rate 62 69 62 Respiratory Rate 15 16 13 Blood Pressure 139/64 157/74 H 155/73 H Pulse Oximetry 99 99 100 09/04/18 00:45 09/04/18 01:00 09/04/18 01:15 Temperature Pulse Rate 61 58 L 61 Respiratory Rate 12 14 15 Blood Pressure 151/68 H 142/55 H 121/58 L Pulse Oximetry 100 100 99 09/04/18 01:27 09/04/18 01:30 09/04/18 01:45 Temperature Pulse Rate 60 63 60 Respiratory Rate 14 16 14 Blood Pressure 128/60 120/60 126/59 L Pulse Oximetry 100 100 100 09/04/18 02:00 09/04/18 02:01 09/04/18 02:15 Temperature Pulse Rate 60 62 74 Respiratory Rate 14 15 16 Blood Pressure 158/70 H 173/74 H Pulse Oximetry 100 100 100 09/04/18 02:30 09/04/18 02:45 09/04/18 03:00 Temperature Pulse Rate 79 72 67 Respiratory Rate 20 15 15 Blood Pressure 172/74 H 158/70 H 161/73 H Pulse Oximetry 98 99 100 09/04/18 03:15 09/04/18 03:30 09/04/18 03:46 Temperature Pulse Rate 64 65 74 Respiratory Rate 6 L 12 19 Blood Pressure 162/75 H 158/72 H 141/73 H Pulse Oximetry 100 100 99 09/04/18 04:00 09/04/18 04:16 09/04/18 04:26 Temperature 98.9 F Pulse Rate 65 64 66 Respiratory Rate 14 15 12 Blood Pressure 140/65 125/60 Pulse Oximetry 99 99 100 09/04/18 04:30 09/04/18 04:45 09/04/18 05:00 Temperature Pulse Rate 63 63 63 Respiratory Rate 10 L 15 15 Blood Pressure 163/69 H 160/70 H Pulse Oximetry 99 100 100 09/04/18 05:46 09/04/18 06:00 09/04/18 06:01 Temperature Pulse Rate 77 69 71 Respiratory Rate 18 16 16 Blood Pressure 182/111 H 206/81 H Pulse Oximetry 99 100 100 09/04/18 06:03 09/04/18 06:15 09/04/18 06:30 Temperature Pulse Rate 74 67 65 Respiratory Rate 14 18 16 Blood Pressure 175/80 H 182/81 H 171/81 H Pulse Oximetry 100 100 100 09/04/18 07:30 09/04/18 07:46 09/04/18 07:55 Temperature Pulse Rate 84 92 H Respiratory Rate 17 21 Blood Pressure 158/66 H 185/86 H Pulse Oximetry 100 98 100 09/04/18 07:57 09/04/18 08:00 09/04/18 08:16 Temperature Pulse Rate 99 H 79 86 Respiratory Rate 16 18 20 Blood Pressure 174/73 H 190/87 H Pulse Oximetry 99 99 09/04/18 08:31 09/04/18 08:45 09/04/18 09:00 Temperature Pulse Rate 81 85 82 Respiratory Rate 17 21 19 Blood Pressure 145/67 H 147/64 H 172/75 H Pulse Oximetry 99 93 L 91 L 09/04/18 09:15 09/04/18 09:30 09/04/18 09:45 Temperature Pulse Rate 90 77 83 Respiratory Rate 20 23 21 Blood Pressure 181/82 H 162/73 H 162/77 H Pulse Oximetry 91 L 98 98 09/04/18 10:00 09/04/18 10:31 09/04/18 10:44 Temperature Pulse Rate 86 98 H 77 Respiratory Rate 23 25 H 21 Blood Pressure 204/89 H 178/71 H Pulse Oximetry 97 97 99 09/04/18 10:45 09/04/18 11:00 09/04/18 11:09 Temperature Pulse Rate 76 82 76 Respiratory Rate 22 24 18 Blood Pressure 171/77 H 185/88 H Pulse Oximetry 98 99 09/04/18 11:16 09/04/18 11:31 09/04/18 11:35 Temperature Pulse Rate 81 77 72 Respiratory Rate 21 23 16 Blood Pressure 214/81 H 167/72 H Pulse Oximetry 99 100 09/04/18 11:46 09/04/18 12:00 09/04/18 12:15 Temperature Pulse Rate 80 77 80 Respiratory Rate 23 21 22 Blood Pressure 185/106 H 172/74 H 186/79 H Pulse Oximetry 96 97 97 09/04/18 12:30 09/04/18 12:46 09/04/18 13:00 Temperature Pulse Rate 78 89 82 Respiratory Rate 21 22 23 Blood Pressure 152/51 H 187/116 H Pulse Oximetry 98 92 L 97 09/04/18 13:16 09/04/18 13:31 09/04/18 13:46 Temperature Pulse Rate 82 84 82 Respiratory Rate 22 21 23 Blood Pressure 203/72 H 188/145 H 172/135 H Pulse Oximetry 95 94 L 94 L Intake & Output 09/03/18 09/04/18 09/04/18 18:59 06:59 18:59 Intake Total 100 / 100 550 / 550 100 / 100 Output Total 1650 / 1650 2350 / 2350 Balance -1550 / -1550 -1800 / -1800 100 / 100 Weight 104.5 kg Intake: IV 100 / 100 250 / 250 100 / 100 Heparin/D5W 25,000 U/250 mL 25, 250 / 250 000 unit In 250 ml @ Per Protocol IV.CONT TITRATE PRN Rx #:[id number] Diprivan 1000 mg/100 ml Inj 1, 100 / 100 100 / 100 000 mg In 100 ml @ 5 MCG/KG/MIN 2.517 mls/hr IV.CONT TITRATE PRN Rx#:[id number] Water Bolus Amount 300 / 300 Output: Urine 1650 / 1650 2350 / 2350 Other: # Bowel Movements 0 Narrative: GENERAL: 88-year-old male currently resting in bed in no acute distress. SKIN: Warm and dry. Positive old scabs bilateral lower extremities anterior shins HEAD: Atraumatic. Normocephalic. EYES: Pupils equal and round 3 mm bilaterally. Positive arcus senilis.. No scleral icterus. No injection or drainage. ENT: No nasal bleeding or discharge. Mucous membranes pink and moist. NECK: Trachea midline. No JVD. Left IJ CVL is clean dry and intact CARDIOVASCULAR: Regular rate and rhythm. S1, S2. Positive S4. Positive S3. RESPIRATORY: Coarse crackles throughout all lung conroy. Diminished. GASTROINTESTINAL: Abdomen soft, non-tender, nondistended. Bowel sounds are hypoactive MUSCULOSKELETAL: Extremities right greater than left lower extremity edema. 1-2 +. NEUROLOGICAL: Alert, no gross deficit. - Urinary Catheter Management Indwelling Urethral Catheter Cath placed during this visit: yes, but has since been removed by the nurse Reason for continuing: Decision to DC catheter Insertion date: 09/02/18 Insertion time: 06:40 Removal date: 09/02/18 Removal time: 18:00 Assessment and Plan - Assessment (1) Respiratory failure requiring intubation Code(s): J96.90 - Respiratory failure, unspecified, unspecified whether with hypoxia or hypercapnia Status: Acute (2) Non-ST elevation (NSTEMI) myocardial infarction Code(s): I21.4 - Non-ST elevation (NSTEMI) myocardial infarction Status: Acute (3) Acute renal insufficiency Code(s): N28.9 - Disorder of kidney and ureter, unspecified Status: Acute (4) CHF (congestive heart failure) Code(s): I50.9 - Heart failure, unspecified Status: Acute Qualifiers: Heart failure type: unspecified Heart failure chronicity: unspecified Qualified Code(s): I50.9 - Heart failure, unspecified (5) Hypernatremia Code(s): E87.0 - Hyperosmolality and hypernatremia Status: Acute (6) Hyperglycemia Code(s): R73.9 - Hyperglycemia, unspecified Status: Acute (7) Diabetes mellitus Code(s): E11.9 - Type 2 diabetes mellitus without complications Status: Chronic Qualifiers: Diabetes mellitus type: type 2 Diabetes mellitus group home insulin use: unspecified termite helper insulin use status Diabetes mellitus complication status : with unspecified complications Qualified Code(s): E11.8 - Type 2 diabetes mellitus with unspecified complications (8) Hypothyroidism Code(s): E03.9 - Hypothyroidism, unspecified Status: Chronic Qualifiers: Hypothyroidism type: unspecified Qualified Code(s): E03.9 - Hypothyroidism , unspecified (9) Chronic kidney disease Code(s): N18.9 - Chronic kidney disease, unspecified Status: Acute - Plan Patient with chronic kidney disease and develop JESSICA. He has fluid overload and resp. failure. Now extubated. Non oliguric, on Lasix 40 mg BID. Creatinine is now stable at 3.1. Patient now told me taht he has chronic kidney disease and has been following with Dr. Del Rio. I will ask him to follow the patient from tomorrow. Continue diuretics, follow the urine out put and BMP.
--- NOTE | 2018-09-05 00:38 | P.PNCA ---
Subjective Interval history: Follow up for Dr. Mireles/Gerardo Extubated, doing well on nasal canula this morning No chest pain Medications and Allergies Active Medications: Active Medications Acetaminophen (Tylenol) 650 mg PO Q6H PRN PRN Reason: FEVER Last Admin: 09/03/18 00:11 Dose: 650 mg Albuterol (Albuterol Neb (Prn)) 2.5 mg NEB Q2HR NEB PRN PRN Reason: SHORTNESS OF BREATH/WHEEZING Albuterol (Duoneb Neb (Toi)) 1 ampul NEB Q4HR NEB [facility] Last Admin: 09/04/18 23:50 Dose: 1 ampul Artificial Tears (Tears Naturale Opth Drops) 1 drop EACH EYE Q8H [facility] Last Admin: 09/04/18 19:43 Dose: Not Given Atorvastatin Calcium (Lipitor) 10 mg PO HS [facility] Last Admin: 09/04/18 21:13 Dose: 10 mg Bisacodyl (Dulcolax Supp) 10 mg RECTAL DAILY PRN PRN Reason: SEVERE CONSITIPATION Carvedilol (Coreg) 3.125 mg PO BID [facility] Last Admin: 09/04/18 21:13 Dose: 3.125 mg Chlorhexidine Gluconate (Chlorhexidine 2% Cloth) 3 pack TOPICAL DAILY@0400 [facility] Stop: 09/08/18 03:59 Last Admin: 09/04/18 05:45 Dose: 3 pack Chlorhexidine Gluconate (Chlorhexidine 2% Cloth) 3 pack TOPICAL DAILY@0400 PRN PRN Reason: Extra cloth needed Stop: 09/08/18 03:59 Chlorhexidine Gluconate (Peridex 0.12% Oral Kit) 15 ml OROPHARYNG BID@0800, 2000 [facility] Last Admin: 09/04/18 21:12 Dose: Not Given Dextrose (D50w Vial) 50 ml IV.PUSH UNSCH PRN PRN Reason: PER HYPOGLYCEMIA PROTOCOL Fentanyl Citrate (Fentanyl Inj) 50 mcg IV.PUSH Q1H PRN PRN Reason: PAIN SCALE 1 TO 10 Furosemide (Lasix Inj) 40 mg IV.PUSH BID@0900,1800 [facility] Last Admin: 09/04/18 19:43 Dose: 40 mg Glucagon (Glucagon Inj) 1 mg OTHER PRN PRN PRN Reason: for Hypoglycemia Protocol Heparin Sodium/Dextrose (Heparin/D5w 25,000 U/250 Ml) 25,000 unit in 250 mls @ 0 mls/hr IV.CONT TITRATE PRN; Protocol PRN Reason: Per Protocol Last Admin: 09/04/18 05:44 Dose: 1,000 units/hr, 10 mls/hr Nitroglycerin/Dextrose (Nitroglycerin Drip Premix) 50 mg in 250 mls @ 1.5 mls/ hr IV.CONT TITRATE PRN; Protocol PRN Reason: Per Protocol Last Titration: 09/03/18 06:20 Dose: Infused Insulin Aspart (Novolog Insulin Correctional Sugar Inj) 0 unit SQ Q6HR [facility]; Protocol Last Admin: 09/04/18 19:54 Dose: 4 unit Lactulose (Lactulose Liq) 30 ml PO DAILY PRN PRN Reason: SEVERE CONSITIPATION Levothyroxine Sodium (Synthroid) 88 mcg PO DAILY@0600 [facility] Last Admin: 09/04/18 05:45 Dose: 88 mcg Miscellaneous Medication () 1 each OROPHARYNG 0000,0400,1200,1600 [facility] Last Admin: 09/04/18 19:43 Dose: Not Given Ondansetron HCl (Zofran Inj) 4 mg IV.PUSH Q6H PRN PRN Reason: NAUSEA OR VOMITING Pantoprazole Sodium (Protonix Inj) 40 mg IV.PUSH DAILY [facility] Last Admin: 09/04/18 09:29 Dose: 40 mg Promethazine HCl (Phenergan Inj) 25 mg IV.CENTRAL Q6H PRN PRN Reason: BREAKTHROUGH NAUSEA Senna/Docusate Sodium (Tahmina-Colace) 1 tab PO BID [facility] Last Admin: 09/04/18 21:13 Dose: Not Given Sennosides (Senokot) 17.2 mg PO Q12H PRN PRN Reason: Moderate Constipation Sodium Chloride (Ns Flush) 2 ml IV.FLUSH BID [facility] Last Admin: 09/04/18 21:13 Dose: 2 ml Sodium Chloride (Ns Flush) 2 ml IV.FLUSH PRN PRN PRN Reason: FLUSH AFTER USING IV ACCESS Last Admin: 09/02/18 12:09 Dose: 2 ml Terbutaline Sulfate (Brethine Inj) 1 mg SQ UNSCH PRN PRN Reason: For Extravasation Allergies Allergy/AdvReac Type Severity Reaction Status Date / Time aspirin Allergy Severe Bleeding Verified 09/02/18 16:03 diclofenac Allergy Severe Hives Verified 09/02/18 07:58 etodolac Allergy Severe Hives Verified 09/02/18 07:58 flurbiprofen Allergy Severe Hives Verified 09/02/18 07:58 ibuprofen Allergy Severe Hives Verified 09/02/18 07:58 indomethacin Allergy Severe Hives Verified 09/02/18 07:58 ketoprofen Allergy Severe Hives Verified 09/02/18 07:58 ketorolac Allergy Severe Hives Verified 09/02/18 07:58 naproxen Allergy Severe Hives Verified 09/02/18 07:58 NSAIDS (Non-Steroidal Allergy Severe Bleeding Verified 09/02/18 16:03 Anti-Inflamma oxaprozin Allergy Severe Hives Verified 09/02/18 07:58 Home Medications Medication Instructions Recorded Confirmed Type amlodipine 5 mg PO DAILY 09/02/18 09/02/18 History carvedilol 3.125 mg PO BID 09/02/18 09/02/18 History furosemide [Lasix] 40 mg PO BID 09/02/18 09/02/18 History glipizide 5 mg PO DAILY 09/02/18 09/02/18 History levothyroxine [Synthroid] 88 mcg PO DAILY 09/02/18 09/02/18 History potassium chloride 10 meq PO DAILY 09/02/18 09/02/18 History Physical Exam Vital signs: Vital Signs 09/04/18 00:45 09/04/18 01:00 09/04/18 01:15 Temperature Pulse Rate 61 58 L 61 Respiratory Rate 12 14 15 Blood Pressure 151/68 H 142/55 H 121/58 L Pulse Oximetry 100 100 99 09/04/18 01:27 09/04/18 01:30 09/04/18 01:45 Temperature Pulse Rate 60 63 60 Respiratory Rate 14 16 14 Blood Pressure 128/60 120/60 126/59 L Pulse Oximetry 100 100 100 09/04/18 02:00 09/04/18 02:01 09/04/18 02:15 Temperature Pulse Rate 60 62 74 Respiratory Rate 14 15 16 Blood Pressure 158/70 H 173/74 H Pulse Oximetry 100 100 100 09/04/18 02:30 09/04/18 02:45 09/04/18 03:00 Temperature Pulse Rate 79 72 67 Respiratory Rate 20 15 15 Blood Pressure 172/74 H 158/70 H 161/73 H Pulse Oximetry 98 99 100 09/04/18 03:15 09/04/18 03:30 09/04/18 03:46 Temperature Pulse Rate 64 65 74 Respiratory Rate 6 L 12 19 Blood Pressure 162/75 H 158/72 H 141/73 H Pulse Oximetry 100 100 99 09/04/18 04:00 09/04/18 04:16 09/04/18 04:26 Temperature 98.9 F Pulse Rate 65 64 66 Respiratory Rate 14 15 12 Blood Pressure 140/65 125/60 Pulse Oximetry 99 99 100 09/04/18 04:30 09/04/18 04:45 09/04/18 05:00 Temperature Pulse Rate 63 63 63 Respiratory Rate 10 L 15 15 Blood Pressure 163/69 H 160/70 H Pulse Oximetry 99 100 100 09/04/18 05:46 09/04/18 06:00 09/04/18 06:01 Temperature Pulse Rate 77 69 71 Respiratory Rate 18 16 16 Blood Pressure 182/111 H 206/81 H Pulse Oximetry 99 100 100 09/04/18 06:03 09/04/18 06:15 09/04/18 06:30 Temperature Pulse Rate 74 67 65 Respiratory Rate 14 18 16 Blood Pressure 175/80 H 182/81 H 171/81 H Pulse Oximetry 100 100 100 09/04/18 07:30 09/04/18 07:46 09/04/18 07:55 Temperature Pulse Rate 84 92 H Respiratory Rate 17 21 Blood Pressure 158/66 H 185/86 H Pulse Oximetry 100 98 100 09/04/18 07:57 09/04/18 08:00 09/04/18 08:16 Temperature Pulse Rate 99 H 79 86 Respiratory Rate 16 18 20 Blood Pressure 174/73 H 190/87 H Pulse Oximetry 99 99 09/04/18 08:31 09/04/18 08:45 09/04/18 09:00 Temperature Pulse Rate 81 85 82 Respiratory Rate 17 21 19 Blood Pressure 145/67 H 147/64 H 172/75 H Pulse Oximetry 99 93 L 91 L 09/04/18 09:15 09/04/18 09:30 09/04/18 09:45 Temperature Pulse Rate 90 77 83 Respiratory Rate 20 23 21 Blood Pressure 181/82 H 162/73 H 162/77 H Pulse Oximetry 91 L 98 98 09/04/18 10:00 09/04/18 10:31 09/04/18 10:44 Temperature Pulse Rate 86 98 H 77 Respiratory Rate 23 25 H 21 Blood Pressure 204/89 H 178/71 H Pulse Oximetry 97 97 99 09/04/18 10:45 09/04/18 11:00 09/04/18 11:09 Temperature Pulse Rate 76 82 76 Respiratory Rate 22 24 18 Blood Pressure 171/77 H 185/88 H Pulse Oximetry 98 99 09/04/18 11:16 09/04/18 11:31 09/04/18 11:35 Temperature Pulse Rate 81 77 72 Respiratory Rate 21 23 16 Blood Pressure 214/81 H 167/72 H Pulse Oximetry 99 100 09/04/18 11:46 09/04/18 12:00 09/04/18 12:15 Temperature Pulse Rate 80 77 80 Respiratory Rate 23 21 22 Blood Pressure 185/106 H 172/74 H 186/79 H Pulse Oximetry 96 97 97 09/04/18 12:30 09/04/18 12:46 09/04/18 13:00 Temperature Pulse Rate 78 89 82 Respiratory Rate 21 22 23 Blood Pressure 152/51 H 187/116 H Pulse Oximetry 98 92 L 97 09/04/18 13:16 09/04/18 13:31 09/04/18 13:46 Temperature Pulse Rate 82 84 82 Respiratory Rate 22 21 23 Blood Pressure 203/72 H 188/145 H 172/135 H Pulse Oximetry 95 94 L 94 L 09/04/18 14:00 09/04/18 14:01 09/04/18 14:15 Temperature Pulse Rate 78 76 90 Respiratory Rate 24 24 26 H Blood Pressure 154/67 H 150/77 H Pulse Oximetry 94 L 96 94 L 09/04/18 14:30 09/04/18 14:46 09/04/18 15:00 Temperature Pulse Rate 78 80 72 Respiratory Rate 22 21 21 Blood Pressure 156/76 H 166/71 H 158/63 H Pulse Oximetry 97 96 97 09/04/18 15:15 09/04/18 15:30 09/04/18 15:45 Temperature Pulse Rate 66 68 78 Respiratory Rate 19 19 22 Blood Pressure 153/70 H 167/78 H 156/74 H Pulse Oximetry 97 97 97 09/04/18 16:00 09/04/18 16:15 09/04/18 16:46 Temperature 98.9 F Pulse Rate 74 74 93 H Respiratory Rate 21 23 25 H Blood Pressure 155/74 H 154/71 H 166/87 H Pulse Oximetry 95 89 L 84 L 09/04/18 17:00 09/04/18 17:15 09/04/18 17:30 Temperature Pulse Rate 78 78 78 Respiratory Rate 24 24 24 Blood Pressure 153/64 H 180/79 H 160/74 H Pulse Oximetry 89 L 96 96 09/04/18 17:45 09/04/18 18:00 09/04/18 18:15 Temperature Pulse Rate 75 76 75 Respiratory Rate 21 22 20 Blood Pressure 163/78 H 156/73 H 153/70 H Pulse Oximetry 98 96 96 09/04/18 18:30 09/04/18 18:45 09/04/18 19:00 Temperature Pulse Rate 78 70 89 Respiratory Rate 23 22 25 H Blood Pressure 147/67 H 134/62 Pulse Oximetry 95 96 95 09/04/18 19:01 09/04/18 19:15 09/04/18 19:30 Temperature Pulse Rate 92 H 93 H 79 Respiratory Rate 24 35 H 21 Blood Pressure 157/76 H 146/66 H 145/64 H Pulse Oximetry 96 86 L 96 09/04/18 19:45 09/04/18 20:00 09/04/18 20:14 Temperature Pulse Rate 78 97 H 73 Respiratory Rate 22 25 H 18 Blood Pressure 154/70 H 145/64 H Pulse Oximetry 95 91 L 97 09/04/18 20:15 09/04/18 20:30 09/04/18 20:45 Temperature Pulse Rate 74 70 86 Respiratory Rate 21 21 22 Blood Pressure 138/65 138/64 149/69 H Pulse Oximetry 97 97 97 09/04/18 21:00 09/04/18 21:15 09/04/18 21:30 Temperature 99.1 F Pulse Rate 72 78 67 Respiratory Rate 22 22 21 Blood Pressure 142/65 H 140/62 134/56 L Pulse Oximetry 97 95 96 09/04/18 21:45 09/04/18 22:00 09/04/18 22:15 Temperature Pulse Rate 78 75 73 Respiratory Rate 21 21 23 Blood Pressure 169/70 H 140/64 141/63 H Pulse Oximetry 92 L 96 94 L 09/04/18 22:30 09/04/18 22:45 09/04/18 23:00 Temperature Pulse Rate 71 87 74 Respiratory Rate 22 25 H 20 Blood Pressure 136/65 144/63 H 143/66 H Pulse Oximetry 96 91 L 92 L Intake & Output 09/04/18 09/04/18 09/05/18 06:59 18:59 06:59 Intake Total 550 / 550 100 / 100 300 / 300 Output Total 2350 / 2350 2400 / 2400 Balance -1800 / -1800 -2300 / -2300 300 / 300 Weight 104.5 kg Intake: IV 250 / 250 100 / 100 300 / 300 Heparin/D5W 25,000 U/250 mL 25, 250 / 250 000 unit In 250 ml @ Per Protocol IV.CONT TITRATE PRN Rx #:[id number] Diprivan 1000 mg/100 ml Inj 1, 100 / 100 000 mg In 100 ml @ 5 MCG/KG/MIN 2.517 mls/hr IV.CONT TITRATE PRN Rx#:[id number] NS Inj 1,000 ML @ 30 mls/hr IV. 300 / 300 SIG .Q24H TOI Rx#:[id number] Water Bolus Amount 300 / 300 Output: Urine 2350 / 2350 2400 / 2400 Other: Date of Last Bowel Movement 09/04/18 # Bowel Movements 0 1 Narrative: GENERAL: 88-year-old male currently resting in bed in no acute distress. SKIN: Warm and dry. Positive old scabs bilateral lower extremities anterior shins HEAD: Atraumatic. Normocephalic. EYES: Pupils equal and round 3 mm bilaterally. Positive arcus senilis.. No scleral icterus. No injection or drainage. ENT: No nasal bleeding or discharge. Mucous membranes pink and moist. NECK: Trachea midline. No JVD. Left IJ CVL is clean dry and intact CARDIOVASCULAR: Regular rate and rhythm. S1, S2. Positive S4. Positive S3. RESPIRATORY: Coarse crackles throughout all lung conroy. Diminished. GASTROINTESTINAL: Abdomen soft, non-tender, nondistended. Bowel sounds are hypoactive MUSCULOSKELETAL: Extremities right greater than left lower extremity edema. 1-2 +. NEUROLOGICAL: Alert, no gross deficit. - Urinary Catheter Management Indwelling Urethral Catheter Cath placed during this visit: yes, but has since been removed by the nurse Reason for continuing: Decision to DC catheter Insertion date: 09/02/18 Insertion time: 06:40 Removal date: 09/02/18 Removal time: 18:00 Results 09/04/18 04:32 09/04/18 04:32 Cardiac Enzymes 09/03/18 09/03/18 09/03/18 Range/Units 00:15 03:45 03:45 AST 20 (15-37) U/L Troponin I 0.23 H 0.19 H (0.02-0.05) ng/mL B-Natriuretic Peptide (0-100) pg/mL 09/04/18 09/04/18 Range/Units 04:32 04:32 AST (15-37) U/L Troponin I 0.20 H (0.02-0.05) ng/mL B-Natriuretic Peptide 296 H (0-100) pg/mL Coagulation 09/03/18 09/03/18 09/04/18 Range/Units 03:45 17:50 00:15 PT 12.0 H (9.8-11.6) sec APTT 72.8 H D 66.1 H 58.0 H (23.4-31.7) sec B-Natriuretic Peptide (0-100) pg/mL 09/04/18 Range/Units 04:32 PT (9.8-11.6) sec APTT (23.4-31.7) sec B-Natriuretic Peptide 296 H (0-100) pg/mL CBC 09/03/18 09/04/18 Range/Units 03:45 04:32 WBC 5.6 5.5 (4.0-11.0) th/mm3 RBC 3.98 L 3.75 L (4.50-5.90) mil/mm3 Hgb 11.4 L D 10.8 L (13.0-17.0) gm/dL Hct 33.3 L 32.0 L (39.0-51.0) % Plt Count 107 L 98 L (150-450) th/mm3 Neut # (Auto) 4.3 4.1 (1.8-7.7) th/mm3 Lymph # (Auto) 0.9 L 0.7 L (1.0-4.8) th/mm3 [place] # (Auto) 0.4 0.5 (0.0-0.9) th/mm3 Eos # (Auto) 0.0 0.1 (0.0-0.4) th/mm3 Baso # (Auto) 0.0 0.0 (0.0-0.2) th/mm3 Comprehensive Metabolic Panel 09/03/18 09/04/18 Range/Units 03:45 04:32 Sodium 143 145 (136-145) meq/L Potassium 3.8 3.3 L (3.5-5.1) meq/L Chloride 109 H 108 H (98-107) meq/L Carbon Dioxide 22.9 28.9 (21.0-32.0) meq/L BUN 39 H 47 H (7-18) mg/dL Creatinine 3.13 H 3.14 H (0.60-1.30) mg/dL Calcium 8.0 L 7.6 L (8.5-10.1) mg/dL AST 20 (15-37) U/L ALT 21 (12-78) U/L Alkaline Phosphatase 57 (45-117) U/L Total Protein 6.0 L D (6.4-8.2) g/dL Albumin 2.5 L D (3.4-5.0) g/dL Intake and Output 09/04/18 09/04/18 09/05/18 14:59 22:59 06:59 Intake Total 100 / 100 300 / 300 Output Total 2400 / 2400 Balance 100 / 100 -2100 / -2100 Intake: IV 100 / 100 300 / 300 Diprivan 1000 mg/100 ml Inj 1, 100 / 100 000 mg In 100 ml @ 5 MCG/KG/MIN 2.517 mls/hr IV.CONT TITRATE PRN Rx#:[id number] NS Inj 1,000 ML @ 30 mls/hr IV. 300 / 300 SIG .Q24H TOI Rx#:[id number] Output: Urine 2400 / 2400 Other: Date of Last Bowel Movement 09/04/18 # Bowel Movements 1 - Imaging and Cardiology Imaging: Impressions Chest X-Ray 09/03/18 08:02 CONCLUSION: Persistent areas of consolidation and airspace opacity with slight improvement in the midlungs. Chest X-Ray 09/04/18 04:00 CONCLUSION: 1. Persistent left lower lung consolidation. 2. Increasing nonconsolidative infiltrates in the lower right lung. Assessment and Plan - Assessment (1) NICM (nonischemic cardiomyopathy) Code(s): I42.8 - Other cardiomyopathies Status: Acute Plan: Office chart notes non-ischemic cardiomyopathy; ef last year not as low as seen here though; continue medical mgt; on bb; bushra/arb held for now due to renal failure/low bp's (2) Elevated troponin Code(s): R74.8 - Abnormal levels of other serum enzymes Status: Acute Plan: likely due to chf/ckd; known non-ischemic cardiomyopathy (3) Acute on chronic systolic (congestive) heart failure Code(s): I50.23 - Acute on chronic systolic (congestive) heart failure Status : Acute Plan: on IV lasix, diuresing (4) Respiratory failure requiring intubation Code(s): J96.90 - Respiratory failure, unspecified, unspecified whether with hypoxia or hypercapnia Status: Acute (5) CHF (congestive heart failure) Code(s): I50.9 - Heart failure, unspecified Status: Acute - Plan 1) Pulmonary edema Due to 's illness, patient unsure if taking his meds as he should Fluid overload state Has diuresed off 7L 2) Known NICM EF 20-25% Con't BB No BUSHRA-I/Entresto/ARB due to JESSICA on CKD 3) Acute respiratory distress requiring intubation s/p extubation 4) Elevated troponin Most likely Type 2 in the setting of CHF/CKD No plan for ischemic work up Heparin drip for 48-72 hours total, most likely stop tomorrow (5) CHF (congestive heart failure) Qualifiers: Heart failure type: unspecified Heart failure chronicity: unspecified Qualified Code(s): I50.9 - Heart failure, unspecified
[2018-09-05] MEDS: Insulin NovoLOG Aspart Correctional Sugar Inj SQ SCH ×4 (00:53→17:20)
[2018-09-05] MEDS: Oral Hygiene Kit OROPHARYNG SCH ×4 (00:54→15:40)
[2018-09-05] MEDS: Artificial Tears Opth Drops 15 ML Bottle EACH EYE SCH ×3 (01:33→17:20)
[2018-09-05] MEDS: Chlorhexidine Gluconate 2% 1 Pack (2 Cloths) TOPICAL SCH (04:22)
[2018-09-05] MEDS: Levothyroxine 88 MCG Tablet PO SCH (05:05)
[2018-09-05 05:39] LABS: Baso % (Auto) 0.1 % (0.0-2.0); Eos # (Auto) 0.2 th/mm3 (0.0-0.4); Eos % (Auto) 4.5 % (0.0-4.0); Hematocrit 32.6 % (39.0-51.0); Lymph # (Auto) 0.8 th/mm3 (1.0-4.8); Lymph % (Auto) 18.6 % (9.0-44.0); Mean Corpuscular HGB Conc 33.9 % (32.0-36.0); Mean Corpuscular Hemoglobin 28.5 pg (27.0-34.0); Mean Corpuscular Volume 83.9 fL (80.0-100.0); Mean Platelet Volume 8.8 fL (7.0-11.0); Mono # (Auto) 0.4 th/mm3 (0.0-0.9); Mono % (Auto) 10.7 % (0.0-8.0); Neut # (Auto) 2.7 th/mm3 (1.8-7.7); Neut % (Auto) 66.1 % (16.0-70.0); Platelet Count 97 th/mm3 (150-450); Red Blood Count 3.88 mil/mm3 (4.50-5.90); Red Cell Distribution Width 16.7 % (11.6-17.2)
[2018-09-05 06:01] LABS: Calcium 8.3 mg/dL (8.5-10.1); Carbon Dioxide 31.6 meq/L (21.0-32.0); Magnesium 2.3 mg/dL (1.5-2.5)
[2018-09-05 06:02] LABS: Phosphorus 2.9 mg/dL (2.5-4.9)
[2018-09-05 06:05] LABS: Troponin I 0.19 ng/mL (0.02-0.05)
[2018-09-05 06:56] LABS: Ovalocytes 1+; Platelet Morphology Normal (Normal)
[2018-09-05] MEDS: Senna/Docusate Sodium 8.6/50 MG Tablet PO SCH ×2 (08:19→20:58)
[2018-09-05] MEDS: Chlorhexidine 0.12% Oral Kit 15 ML UDC OROPHARYNG SCH ×2 (08:19→20:58)
[2018-09-05] MEDS: Heparin Drip 25,000 UNIT/250 ML BAG IV.CONT PRN (08:38)
[2018-09-05] MEDS: Pantoprazole Inj 40 MG Vial IV.PUSH SCH (08:44)
[2018-09-05] MEDS: Potassium Chlor 20 mEq Premix 20 MEQ/100 ML PIGGYBACK IV.SIG SCH ×2 (10:37→13:40)
--- NOTE | 2018-09-05 14:49 | P.PNCA ---
Subjective Interval history: No events overnight Breathing much better No chest pain Medications and Allergies Active Medications: Active Medications Acetaminophen (Tylenol) 650 mg PO Q6H PRN PRN Reason: FEVER Last Admin: 09/03/18 00:11 Dose: 650 mg Albuterol (Albuterol Neb (Prn)) 2.5 mg NEB Q2HR NEB PRN PRN Reason: SHORTNESS OF BREATH/WHEEZING Albuterol (Duoneb Neb (Toi)) 1 ampul NEB Q4HR NEB [facility] Last Admin: 09/05/18 14:07 Dose: 1 ampul Artificial Tears (Tears Naturale Opth Drops) 1 drop EACH EYE Q8H [facility] Last Admin: 09/05/18 08:44 Dose: 1 drop Atorvastatin Calcium (Lipitor) 10 mg PO HS [facility] Last Admin: 09/04/18 21:13 Dose: 10 mg Bisacodyl (Dulcolax Supp) 10 mg RECTAL DAILY PRN PRN Reason: SEVERE CONSITIPATION Carvedilol (Coreg) 3.125 mg PO BID [facility] Last Admin: 09/05/18 08:44 Dose: 3.125 mg Chlorhexidine Gluconate (Chlorhexidine 2% Cloth) 3 pack TOPICAL DAILY@0400 [facility] Stop: 09/08/18 03:59 Last Admin: 09/05/18 04:22 Dose: 3 pack Chlorhexidine Gluconate (Chlorhexidine 2% Cloth) 3 pack TOPICAL DAILY@0400 PRN PRN Reason: Extra cloth needed Stop: 09/08/18 03:59 Chlorhexidine Gluconate (Peridex 0.12% Oral Kit) 15 ml OROPHARYNG BID@0800, 2000 [facility] Last Admin: 09/05/18 08:19 Dose: Not Given Dextrose (D50w Vial) 50 ml IV.PUSH UNSCH PRN PRN Reason: PER HYPOGLYCEMIA PROTOCOL Fentanyl Citrate (Fentanyl Inj) 50 mcg IV.PUSH Q1H PRN PRN Reason: PAIN SCALE 1 TO 10 Furosemide (Lasix Inj) 40 mg IV.PUSH BID@0900,1800 [facility] Last Admin: 09/05/18 10:03 Dose: 40 mg Glucagon (Glucagon Inj) 1 mg OTHER PRN PRN PRN Reason: for Hypoglycemia Protocol Nitroglycerin/Dextrose (Nitroglycerin Drip Premix) 50 mg in 250 mls @ 1.5 mls/ hr IV.CONT TITRATE PRN; Protocol PRN Reason: Per Protocol Last Titration: 09/03/18 06:20 Dose: Infused Insulin Aspart (Novolog Insulin Correctional Sugar Inj) 0 unit SQ Q6HR [facility]; Protocol Last Admin: 09/05/18 13:11 Dose: Not Given Lactulose (Lactulose Liq) 30 ml PO DAILY PRN PRN Reason: SEVERE CONSITIPATION Levothyroxine Sodium (Synthroid) 88 mcg PO DAILY@0600 [facility] Last Admin: 09/05/18 05:05 Dose: 88 mcg Miscellaneous Medication () 1 each OROPHARYNG 0000,0400,1200,1600 [facility] Last Admin: 09/05/18 11:40 Dose: Not Given Ondansetron HCl (Zofran Inj) 4 mg IV.PUSH Q6H PRN PRN Reason: NAUSEA OR VOMITING Pantoprazole Sodium (Protonix Inj) 40 mg IV.PUSH DAILY [facility] Last Admin: 09/05/18 08:44 Dose: 40 mg Promethazine HCl (Phenergan Inj) 25 mg IV.CENTRAL Q6H PRN PRN Reason: BREAKTHROUGH NAUSEA Senna/Docusate Sodium (Tahmina-Colace) 1 tab PO BID [facility] Last Admin: 09/05/18 08:19 Dose: Not Given Sennosides (Senokot) 17.2 mg PO Q12H PRN PRN Reason: Moderate Constipation Sodium Chloride (Ns Flush) 2 ml IV.FLUSH BID [facility] Last Admin: 09/05/18 08:44 Dose: 2 ml Sodium Chloride (Ns Flush) 2 ml IV.FLUSH PRN PRN PRN Reason: FLUSH AFTER USING IV ACCESS Last Admin: 09/02/18 12:09 Dose: 2 ml Terbutaline Sulfate (Brethine Inj) 1 mg SQ UNSCH PRN PRN Reason: For Extravasation Allergies Allergy/AdvReac Type Severity Reaction Status Date / Time aspirin Allergy Severe Bleeding Verified 09/02/18 16:03 diclofenac Allergy Severe Hives Verified 09/02/18 07:58 etodolac Allergy Severe Hives Verified 09/02/18 07:58 flurbiprofen Allergy Severe Hives Verified 09/02/18 07:58 ibuprofen Allergy Severe Hives Verified 09/02/18 07:58 indomethacin Allergy Severe Hives Verified 09/02/18 07:58 ketoprofen Allergy Severe Hives Verified 09/02/18 07:58 ketorolac Allergy Severe Hives Verified 09/02/18 07:58 naproxen Allergy Severe Hives Verified 09/02/18 07:58 NSAIDS (Non-Steroidal Allergy Severe Bleeding Verified 09/02/18 16:03 Anti-Inflamma oxaprozin Allergy Severe Hives Verified 09/02/18 07:58 Home Medications Medication Instructions Recorded Confirmed Type amlodipine 5 mg PO DAILY 09/02/18 09/02/18 History carvedilol 3.125 mg PO BID 09/02/18 09/02/18 History furosemide [Lasix] 40 mg PO BID 09/02/18 09/02/18 History glipizide 5 mg PO DAILY 09/02/18 09/02/18 History levothyroxine [Synthroid] 88 mcg PO DAILY 09/02/18 09/02/18 History potassium chloride 10 meq PO DAILY 09/02/18 09/02/18 History Physical Exam Vital signs: Vital Signs 09/04/18 15:00 09/04/18 15:15 09/04/18 15:30 Temperature Pulse Rate 72 66 68 Respiratory Rate 21 19 19 Blood Pressure 158/63 H 153/70 H 167/78 H Pulse Oximetry 97 97 97 09/04/18 15:45 09/04/18 16:00 09/04/18 16:15 Temperature 98.9 F Pulse Rate 78 74 74 Respiratory Rate 22 21 23 Blood Pressure 156/74 H 155/74 H 154/71 H Pulse Oximetry 97 95 89 L 09/04/18 16:46 09/04/18 17:00 09/04/18 17:15 Temperature Pulse Rate 93 H 78 78 Respiratory Rate 25 H 24 24 Blood Pressure 166/87 H 153/64 H 180/79 H Pulse Oximetry 84 L 89 L 96 09/04/18 17:30 09/04/18 17:45 09/04/18 18:00 Temperature Pulse Rate 78 75 76 Respiratory Rate 24 21 22 Blood Pressure 160/74 H 163/78 H 156/73 H Pulse Oximetry 96 98 96 09/04/18 18:15 18 18:30 18 18:45 Temperature Pulse Rate 75 78 70 Respiratory Rate 20 23 22 Blood Pressure 153/70 H 147/67 H 134/62 Pulse Oximetry 96 95 96 09/04/18 19:00 09/04/18 19:01 09/04/18 19:15 Temperature Pulse Rate 89 92 H 93 H Respiratory Rate 25 H 24 35 H Blood Pressure 157/76 H 146/66 H Pulse Oximetry 95 96 86 L 09/04/18 19:30 09/04/18 19:45 09/04/18 20:00 Temperature Pulse Rate 79 78 97 H Respiratory Rate 21 22 25 H Blood Pressure 145/64 H 154/70 H 145/64 H Pulse Oximetry 96 95 91 L 09/04/18 20:14 09/04/18 20:15 09/04/18 20:30 Temperature Pulse Rate 73 74 70 Respiratory Rate 18 21 21 Blood Pressure 138/65 138/64 Pulse Oximetry 97 97 97 09/04/18 20:45 09/04/18 21:00 09/04/18 21:15 Temperature 99.1 F Pulse Rate 86 72 78 Respiratory Rate 22 22 22 Blood Pressure 149/69 H 142/65 H 140/62 Pulse Oximetry 97 97 95 09/04/18 21:30 09/04/18 21:45 09/04/18 22:00 Temperature Pulse Rate 67 78 75 Respiratory Rate 21 21 21 Blood Pressure 134/56 L 169/70 H 140/64 Pulse Oximetry 96 92 L 96 09/04/18 22:15 09/04/18 22:30 09/04/18 22:45 Temperature Pulse Rate 73 71 87 Respiratory Rate 23 22 25 H Blood Pressure 141/63 H 136/65 144/63 H Pulse Oximetry 94 L 96 91 L 09/04/18 23:00 09/04/18 23:15 09/04/18 23:30 Temperature Pulse Rate 74 74 69 Respiratory Rate 20 24 22 Blood Pressure 143/66 H 141/63 H 149/67 H Pulse Oximetry 92 L 93 L 96 09/04/18 23:46 09/05/18 00:00 09/05/18 00:15 Temperature Pulse Rate 68 63 65 Respiratory Rate 20 19 19 Blood Pressure 134/62 131/62 116/58 L Pulse Oximetry 94 L 97 97 09/05/18 00:31 09/05/18 00:45 09/05/18 01:00 Temperature Pulse Rate 86 79 74 Respiratory Rate 19 20 19 Blood Pressure 158/66 H 152/69 H 131/61 Pulse Oximetry 92 L 95 95 09/05/18 01:15 09/05/18 01:30 09/05/18 02:00 Temperature Pulse Rate 70 69 68 Respiratory Rate 19 19 19 Blood Pressure 127/60 110/56 L 120/59 L Pulse Oximetry 95 95 95 09/05/18 03:00 09/05/18 03:01 09/05/18 04:00 Temperature Pulse Rate 62 66 60 Respiratory Rate 20 21 18 Blood Pressure 120/59 L 156/72 H Pulse Oximetry 94 L 93 L 97 09/05/18 04:01 09/05/18 05:00 09/05/18 05:01 Temperature Pulse Rate 58 L 75 77 Respiratory Rate 18 30 H 21 Blood Pressure 132/60 154/70 H Pulse Oximetry 97 93 L 92 L 09/05/18 06:00 09/05/18 06:01 09/05/18 07:00 Temperature Pulse Rate 65 62 54 L Respiratory Rate 21 21 18 Blood Pressure 155/65 H 155/65 H 117/56 L Pulse Oximetry 93 L 93 L 97 09/05/18 08:00 09/05/18 08:26 09/05/18 09:00 Temperature 98.4 F Pulse Rate 61 69 Respiratory Rate 17 18 Blood Pressure 154/70 H 150/71 H Pulse Oximetry 96 96 99 09/05/18 10:00 09/05/18 11:00 09/05/18 12:00 Temperature 98.3 F Pulse Rate 57 L 61 71 Respiratory Rate 18 18 Blood Pressure 155/71 H Pulse Oximetry 99 09/05/18 14:00 09/05/18 14:07 Temperature Pulse Rate 62 62 Respiratory Rate 18 Blood Pressure Pulse Oximetry Intake & Output 09/04/18 09/05/18 09/05/18 18:59 06:59 18:59 Intake Total 100 / 100 1300 / 1300 350 / 350 Output Total 2400 / 2400 1750 / 1750 Balance -2300 / -2300 -450 / -450 350 / 350 Weight 101.2 kg Intake: IV 100 / 100 300 / 300 350 / 350 Heparin/D5W 25,000 U/250 mL 25, 250 / 250 000 unit In 250 ml @ Per Protocol IV.CONT TITRATE PRN Rx #:[id number] Diprivan 1000 mg/100 ml Inj 1, 100 / 100 000 mg In 100 ml @ 5 MCG/KG/MIN 2.517 mls/hr IV.CONT TITRATE PRN Rx#:[id number] KCl 20 mEq Premix Inj 20 meq In 100 / 100 100 ml @ 50 mls/hr IV.SIG Q2H TOI Rx#:[id number] NS Inj 1,000 ML @ 30 mls/hr IV. 300 / 300 SIG .Q24H TOI Rx#:[id number] Oral 1000 / 1000 Output: Urine 2400 / 2400 1750 / 1750 Other: Date of Last Bowel Movement 09/04/18 09/04/18 # Bowel Movements 1 1 Narrative: GENERAL: 88-year-old male currently resting in bed in no acute distress. SKIN: Warm and dry. Positive old scabs bilateral lower extremities anterior shins HEAD: Atraumatic. Normocephalic. EYES: Pupils equal and round 3 mm bilaterally. Positive arcus senilis.. No scleral icterus. No injection or drainage. ENT: No nasal bleeding or discharge. Mucous membranes pink and moist. NECK: Trachea midline. No JVD. CARDIOVASCULAR: Regular rate and rhythm. S1, S2. RESPIRATORY: Coarse crackles throughout all lung conroy. Diminished. GASTROINTESTINAL: Abdomen soft, non-tender, nondistended. Bowel sounds are hypoactive MUSCULOSKELETAL: Extremities right greater than left lower extremity edema. 1+. NEUROLOGICAL: Alert, no gross deficit. - Urinary Catheter Management Indwelling Urethral Catheter Cath placed during this visit: yes, but has since been removed by the nurse Reason for continuing: Decision to DC catheter Insertion date: 09/02/18 Insertion time: 06:40 Removal date: 09/02/18 Removal time: 18:00 Results 09/05/18 05:10 09/05/18 05:10 Cardiac Enzymes 09/04/18 09/04/18 09/05/18 Range/Units 04:32 04:32 05:10 Troponin I 0.20 H 0.19 H (0.02-0.05) ng/mL B-Natriuretic Peptide 296 H (0-100) pg/mL Coagulation 09/03/18 09/04/18 09/04/18 Range/Units 17:50 00:15 04:32 APTT 66.1 H 58.0 H (23.4-31.7) sec B-Natriuretic Peptide 296 H (0-100) pg/mL 09/05/18 Range/Units 05:10 APTT 52.8 H (23.4-31.7) sec B-Natriuretic Peptide (0-100) pg/mL CBC 09/04/18 09/05/18 Range/Units 04:32 05:10 WBC 5.5 4.0 (4.0-11.0) th/mm3 RBC 3.75 L 3.88 L (4.50-5.90) mil/mm3 Hgb 10.8 L 11.0 L (13.0-17.0) gm/dL Hct 32.0 L 32.6 L (39.0-51.0) % Plt Count 98 L 97 L (150-450) th/mm3 Neut # (Auto) 4.1 2.7 (1.8-7.7) th/mm3 Lymph # (Auto) 0.7 L 0.8 L (1.0-4.8) th/mm3 Runnels # (Auto) 0.5 0.4 (0.0-0.9) th/mm3 Eos # (Auto) 0.1 0.2 (0.0-0.4) th/mm3 Baso # (Auto) 0.0 0.0 (0.0-0.2) th/mm3 Comprehensive Metabolic Panel 09/04/18 09/05/18 Range/Units 04:32 05:10 Sodium 145 141 (136-145) meq/L Potassium 3.3 L 3.0 L (3.5-5.1) meq/L Chloride 108 H 102 (98-107) meq/L Carbon Dioxide 28.9 31.6 (21.0-32.0) meq/L BUN 47 H 40 H (7-18) mg/dL Creatinine 3.14 H 2.68 H (0.60-1.30) mg/dL Calcium 7.6 L 8.3 L (8.5-10.1) mg/dL Intake and Output 09/04/18 09/05/18 09/05/18 22:59 06:59 14:59 Intake Total 300 / 300 1000 / 1000 350 / 350 Output Total 2400 / 2400 1750 / 1750 Balance -2100 / -2100 -750 / -750 350 / 350 Intake: IV 300 / 300 350 / 350 Heparin/D5W 25,000 U/250 mL 25, 250 / 250 000 unit In 250 ml @ Per Protocol IV.CONT TITRATE PRN Rx #:[id number] KCl 20 mEq Premix Inj 20 meq In 100 / 100 100 ml @ 50 mls/hr IV.SIG Q2H TOI Rx#:[id number] NS Inj 1,000 ML @ 30 mls/hr IV. 300 / 300 SIG .Q24H TOI Rx#:[id number] Oral 1000 / 1000 Output: Urine 2400 / 2400 1750 / 1750 Other: Date of Last Bowel Movement 09/04/18 09/04/18 09/04/18 # Bowel Movements 1 1 Weight 101.2 kg - Imaging and Cardiology Imaging: Impressions Chest X-Ray 09/04/18 04:00 CONCLUSION: 1. Persistent left lower lung consolidation. 2. Increasing nonconsolidative infiltrates in the lower right lung. Assessment and Plan - Assessment (1) NICM (nonischemic cardiomyopathy) Code(s): I42.8 - Other cardiomyopathies Status: Acute Plan: Office chart notes non-ischemic cardiomyopathy; ef last year not as low as seen here though; continue medical mgt; on bb; bushra/arb held for now due to renal failure/low bp's (2) Elevated troponin Code(s): R74.8 - Abnormal levels of other serum enzymes Status: Acute Plan: likely due to chf/ckd; known non-ischemic cardiomyopathy (3) Acute on chronic systolic (congestive) heart failure Code(s): I50.23 - Acute on chronic systolic (congestive) heart failure Status : Acute Plan: on IV lasix, diuresing (4) Respiratory failure requiring intubation Code(s): J96.90 - Respiratory failure, unspecified, unspecified whether with hypoxia or hypercapnia Status: Acute (5) CHF (congestive heart failure) Code(s): I50.9 - Heart failure, unspecified Status: Acute - Plan 1) Pulmonary edema Due to 's illness, patient admits to not taking his meds as he should Fluid overload state Has diuresed off 7L 2) Known NICM EF 20-25% Con't BB No BUSHRA-I/Entresto/ARB due to JESSICA on CKD 3) Acute respiratory distress requiring intubation s/p extubation 4) Elevated troponin Most likely Type 2 in the setting of CHF/CKD No plan for ischemic work up Heparin drip for 48-72 hours total, plan to stop today (5) CHF (congestive heart failure) Qualifiers: Heart failure type: unspecified Heart failure chronicity: unspecified Qualified Code(s): I50.9 - Heart failure, unspecified
--- NOTE | 2018-09-05 19:01 | P.PNIM ---
Physical Exam Vital signs: Last Vital Signs Temp 98.3 F 09/05/18 16:00 Pulse 64 09/05/18 16:00 Resp 19 09/05/18 16:00 BP 149/68 H 09/05/18 16:00 Pulse Ox 99 09/05/18 16:00 Intake & Output 09/03/18 09/04/18 09/05/18 09/06/18 06:59 06:59 06:59 06:59 Intake Total 1084 / 1084 650 / 650 1400 / 1400 350 / 350 Output Total 2675 / 2675 4000 / 4000 4150 / 4150 Balance -1591 / -1591 -3350 / -3350 -2750 / -2750 350 / 350 Weight 106.1 kg 104.5 kg 101.2 kg Narrative: GENERAL: Very pleasant 88-year-old male, resting in bed in no acute distress. SKIN: Warm and dry. Old scabs bilateral lower extremities anterior shins. ENT: Mucous membranes pink and moist. CARDIOVASCULAR: Regular rate and rhythm. S1, S2. RESPIRATORY: Coarse crackles throughout all lung conroy. Decreased breath sounds. GASTROINTESTINAL: Abdomen soft, non-tender, nondistended. Bowel sounds are hypoactive MUSCULOSKELETAL: Extremities right greater than left lower extremity edema. 1+. NEUROLOGICAL: Alert, no gross deficit. Urinary Catheter Management Indwelling Urethral Catheter: Cath placed during this visit: yes, but has since been removed by the nurse Insertion date: 09/02/18 Insertion time: 06:40 Removal date: 09/02/18 Removal time: 18:00 Results Labs CBC & Chem 7: 09/05/18 05:10 09/05/18 05:10 Assessment and Plan (1) Respiratory failure requiring intubation: Code(s): J96.90 - Respiratory failure, unspecified, unspecified whether with hypoxia or hypercapnia Status: Acute (2) Non-ST elevation (NSTEMI) myocardial infarction: Code(s): I21.4 - Non-ST elevation (NSTEMI) myocardial infarction Status: Acute (3) Acute renal insufficiency: Code(s): N28.9 - Disorder of kidney and ureter, unspecified Status: Acute (4) CHF (congestive heart failure): Code(s): I50.9 - Heart failure, unspecified Status: Acute (5) Hypernatremia: Code(s): E87.0 - Hyperosmolality and hypernatremia Status: Acute (6) Hyperglycemia: Code(s): R73.9 - Hyperglycemia, unspecified Status: Acute (7) Diabetes mellitus: Code(s): E11.9 - Type 2 diabetes mellitus without complications Status: Chronic (8) Hypothyroidism: Code(s): E03.9 - Hypothyroidism, unspecified Status: Chronic (9) Chronic kidney disease: Code(s): N18.9 - Chronic kidney disease, unspecified Status: Acute Plan Neuro/Psych: Alert and oriented at baseline Acetaminophen 650 mg by tube every 6 hours as needed fever CV: History of congestive heart failure nonischemic cardiomyopathy with low EF 20% History of essential hypertension Elevated troponin, likeley from demand ischemia from CHF and decreased renal clearance Elevated BNP Patient's infectious waste technician is Dr. Mireles. F/U cardiology recommendation Initial troponin 0.15->.26, now down trending 0.19. with normal sinus rhythm. ST elevation in the septal leads. Serial troponins downward trend, likely elevated from demand ischemia from chf / decreased renal clearance 09/03 2D echocardiogram -EF 20-25% with global hypokinesis moderate MR, trace TR Did not receive aspirin due to anti-inflammatory allergies/multiple. Continue low-dose beta-shalini. No BUSHRA inhibitor secondary to acute kidney injury. Continue atorvastatin 10 mg daily Currently on a heparin drip 100u/hr Patient is on carvedilol 3.2 mg twice daily and amlodipine 5 mg daily at home Patient is on furosemide 40 mg p.o. twice daily at home Furosemide 40 mg IV twice daily. Received 80 mg x1 in the ED DCd heparin ( after 3 days per cardio), Dr Corey ff Resp: Acute hypoxemic hypercapnic respiratory failure secondary to flash pulmonary edema, resolving , was intubated and successfully extubated , currently satting well on NC Albuterol/ipratropium aerosols every 4 hours with albuterol every 2 as needed dyspnea Head of bed at 30 degrees Extubated 09/04 Spontaneous breathing trials and clinically indicated GI: Elevated total protein Formal swallow evaluation performed-initiate carb controlled, cardiac diet Pantoprazole for GI prophylaxis Docusate serum/senna 1 tablet twice daily for bowel regimen : Parikh catheter has been placed for accurate I's and O's in a critical patient on diuretics Endo: Diabetes mellitus Acute hyperglycemia Hypothyroidism Sliding scale insulin aspart insulin with Accu-Cheks to maintain euglycemia/ medium protocol Check hemoglobin A1c pending Continue levothyroxine 88 mcg daily Renal: Acute on chronic kidney injury Renal ultrasound-chronic medical disease Monitor urine output- 250cc overnight in 12 hours Accurate I's and O's Follow-up creatinine Avoid nephrotoxic medications Nephrology consulted, appreciate recommendations Heme: Thrombocytopenia Monitor CBC daily. Follow trends. No indication for transfusion of blood products this time. Currently on heparin drip per PA protocol ID: Monitor for signs and symptomatology infection FEN: Acute hypernatremia- resolved Monitor BMP Replace electrolytes as clinically indicated Currently on normal saline at 30 cc an hour MSK: Bilateral lower extremity edema Physical therapy evaluate and treat 09/03 Dopplers duplex bilateral lower extremities-no evidence of DVT Access -Left IJ CVL day 2 placed 09/02 -Left femoral arterial line placed 09/02 Prophylaxis -GI -pantoprazole -DVT - DC heparin drip per cardio. Patient's son requesting no SCDs per records. PT consult for ambulation Code Status: Full code Discussed Condition With: discussed with the patient. nurse _ (1) CHF (congestive heart failure) Qualifiers: Heart failure type: unspecified Heart failure chronicity: unspecified Qualified Code(s): I50.9 - Heart failure, unspecified (2) Diabetes mellitus Qualifiers: Diabetes mellitus type: type 2 Diabetes mellitus alf insulin use: unspecified alf insulin use status Diabetes mellitus complication status : with unspecified complications Diabetes mellitus complication detail: Diabetic retinopathy severity: Proliferative retinopathy type: Diabetes mellitus macular edema: Laterality: Chronic kidney disease stage: Qualified Code(s): E11.8 - Type 2 diabetes mellitus with unspecified complications (3) Hypothyroidism Qualifiers: Hypothyroidism type: unspecified Qualified Code(s): E03.9 - Hypothyroidism, unspecified (4) Chronic kidney disease Qualifiers: Chronic kidney disease stage:
--- NOTE | 2018-09-05 22:31 | P.PNNP ---
Subjective Interval history: Patient is alert, feeling better, started eating better. Physical Exam Vital signs: Vital Signs 09/04/18 22:30 09/04/18 22:45 09/04/18 23:00 Temperature Pulse Rate 71 87 74 Respiratory Rate 22 25 H 20 Blood Pressure 136/65 144/63 H 143/66 H Pulse Oximetry 96 91 L 92 L 09/04/18 23:15 09/04/18 23:30 09/04/18 23:46 Temperature Pulse Rate 74 69 68 Respiratory Rate 24 22 20 Blood Pressure 141/63 H 149/67 H 134/62 Pulse Oximetry 93 L 96 94 L 09/05/18 00:00 09/05/18 00:15 09/05/18 00:31 Temperature Pulse Rate 63 65 86 Respiratory Rate 19 19 19 Blood Pressure 131/62 116/58 L 158/66 H Pulse Oximetry 97 97 92 L 09/05/18 00:45 09/05/18 01:00 09/05/18 01:15 Temperature Pulse Rate 79 74 70 Respiratory Rate 20 19 19 Blood Pressure 152/69 H 131/61 127/60 Pulse Oximetry 95 95 95 09/05/18 01:30 09/05/18 02:00 09/05/18 03:00 Temperature Pulse Rate 69 68 62 Respiratory Rate 19 19 20 Blood Pressure 110/56 L 120/59 L 120/59 L Pulse Oximetry 95 95 94 L 09/05/18 03:01 09/05/18 04:00 09/05/18 04:01 Temperature Pulse Rate 66 60 58 L Respiratory Rate 21 18 18 Blood Pressure 156/72 H 132/60 Pulse Oximetry 93 L 97 97 09/05/18 05:00 09/05/18 05:01 09/05/18 06:00 Temperature Pulse Rate 75 77 65 Respiratory Rate 30 H 21 21 Blood Pressure 154/70 H 155/65 H Pulse Oximetry 93 L 92 L 93 L 09/05/18 06:01 09/05/18 07:00 09/05/18 08:00 Temperature 98.4 F Pulse Rate 62 54 L 61 Respiratory Rate 21 18 17 Blood Pressure 155/65 H 117/56 L 154/70 H Pulse Oximetry 93 L 97 96 09/05/18 08:26 09/05/18 09:00 09/05/18 10:00 Temperature Pulse Rate 69 57 L Respiratory Rate 18 Blood Pressure 150/71 H Pulse Oximetry 96 99 09/05/18 11:00 09/05/18 12:00 09/05/18 14:00 Temperature 98.3 F Pulse Rate 61 71 62 Respiratory Rate 18 18 Blood Pressure 155/71 H Pulse Oximetry 99 09/05/18 14:07 09/05/18 16:00 09/05/18 18:00 Temperature 98.3 F Pulse Rate 62 64 66 Respiratory Rate 18 19 Blood Pressure 149/68 H Pulse Oximetry 99 09/05/18 20:16 Temperature Pulse Rate 63 Respiratory Rate 16 Blood Pressure Pulse Oximetry Intake & Output 09/05/18 09/05/18 09/06/18 06:59 18:59 06:59 Intake Total 1300 / 1300 1200 / 1200 Output Total 1750 / 1750 1300 / 1300 Balance -450 / -450 -100 / -100 Weight 101.2 kg Intake: IV 300 / 300 450 / 450 Heparin/D5W 25,000 U/250 mL 25, 250 / 250 000 unit In 250 ml @ Per Protocol IV.CONT TITRATE PRN Rx #:[id number] KCl 20 mEq Premix Inj 20 meq In 200 / 200 100 ml @ 50 mls/hr IV.SIG Q2H MAURO Rx#:[id number] NS Inj 1,000 ML @ 30 mls/hr IV. 300 / 300 SIG .Q24H MAURO Rx#:[id number] Oral 1000 / 1000 750 / 750 Output: Urine 1750 / 1750 1300 / 1300 Other: Date of Last Bowel Movement 09/04/18 09/04/18 # Bowel Movements 1 0 Narrative: GENERAL: Very pleasant 88-year-old male, resting in bed in no acute distress. SKIN: Warm and dry. Old scabs bilateral lower extremities anterior shins. ENT: Mucous membranes pink and moist. CARDIOVASCULAR: Regular rate and rhythm. S1, S2. RESPIRATORY: Coarse crackles throughout all lung conroy. Decreased breath sounds. GASTROINTESTINAL: Abdomen soft, non-tender, nondistended. Bowel sounds are hypoactive MUSCULOSKELETAL: Extremities right greater than left lower extremity edema. 1+. NEUROLOGICAL: Alert, no gross deficit. - Urinary Catheter Management Indwelling Urethral Catheter Cath placed during this visit: yes, but has since been removed by the nurse Reason for continuing: Decision to DC catheter Insertion date: 09/02/18 Insertion time: 06:40 Removal date: 09/02/18 Removal time: 18:00 Assessment and Plan - Assessment (1) Respiratory failure requiring intubation Code(s): J96.90 - Respiratory failure, unspecified, unspecified whether with hypoxia or hypercapnia Status: Acute (2) Non-ST elevation (NSTEMI) myocardial infarction Code(s): I21.4 - Non-ST elevation (NSTEMI) myocardial infarction Status: Acute (3) Acute renal insufficiency Code(s): N28.9 - Disorder of kidney and ureter, unspecified Status: Acute (4) CHF (congestive heart failure) Code(s): I50.9 - Heart failure, unspecified Status: Acute Qualifiers: Heart failure type: unspecified Heart failure chronicity: unspecified Qualified Code(s): I50.9 - Heart failure, unspecified (5) Hypernatremia Code(s): E87.0 - Hyperosmolality and hypernatremia Status: Acute (6) Hyperglycemia Code(s): R73.9 - Hyperglycemia, unspecified Status: Acute (7) Diabetes mellitus Code(s): E11.9 - Type 2 diabetes mellitus without complications Status: Chronic Qualifiers: Diabetes mellitus type: type 2 Diabetes mellitus front end specialist insulin use: unspecified nursing home insulin use status Diabetes mellitus complication status : with unspecified complications Qualified Code(s): E11.8 - Type 2 diabetes mellitus with unspecified complications (8) Hypothyroidism Code(s): E03.9 - Hypothyroidism, unspecified Status: Chronic Qualifiers: Hypothyroidism type: unspecified Qualified Code(s): E03.9 - Hypothyroidism , unspecified (9) Chronic kidney disease Code(s): N18.9 - Chronic kidney disease, unspecified Status: Acute - Plan Patient with chronic kidney disease and develop JESSICA. He has fluid overload and resp. failure. Now extubated. Non oliguric, on Lasix 40 mg BID. Creatinine continue to improve, now it is 2.6. Patient now told me that he has chronic kidney disease and has been following with Dr. Del Rio. I will ask him to follow the patient from tomorrow. Continue diuretics, Avoid Nephrotoxins. follow the urine out put and BMP.
[2018-09-06] MEDS: Insulin NovoLOG Aspart Correctional Sugar Inj SQ SCH ×5 (00:50→23:53)
[2018-09-06] MEDS: Oral Hygiene Kit OROPHARYNG SCH ×5 (00:50→23:48)
[2018-09-06] MEDS: Artificial Tears Opth Drops 15 ML Bottle EACH EYE SCH ×3 (00:50→16:13)
[2018-09-06] MEDS: Chlorhexidine Gluconate 2% 1 Pack (2 Cloths) TOPICAL SCH (03:43)
[2018-09-06] MEDS: Chlorhexidine 0.12% Oral Kit 15 ML UDC OROPHARYNG SCH ×2 (08:14→20:22)
[2018-09-06] MEDS: Senna/Docusate Sodium 8.6/50 MG Tablet PO SCH ×2 (08:14→20:22)
[2018-09-06] MEDS: Pantoprazole Inj 40 MG Vial IV.PUSH SCH (08:14)
[2018-09-06] MEDS: Enoxaparin Inj 30 MG/0.3 ML Syringe SQ SCH (08:14)
[2018-09-06] MEDS: Levothyroxine 88 MCG Tablet PO SCH (08:46)
--- NOTE | 2018-09-06 14:32 | P.PNNP ---
Subjective Interval history: Patient was seen, no distress, no complaints. Family was at bedside. Renal function has improved today. <Khushbu Gill - Last Filed: 09/06/18 14:33> Physical Exam Vital signs: Vital Signs 09/05/18 15:00 09/05/18 16:00 09/05/18 16:01 Temperature 98.3 F Pulse Rate 67 64 61 Respiratory Rate 19 19 19 Blood Pressure 163/77 H 149/68 H 149/68 H Pulse Oximetry 100 99 99 09/05/18 17:00 09/05/18 18:00 09/05/18 18:01 Temperature Pulse Rate 56 L 66 65 Respiratory Rate 19 23 26 H Blood Pressure 163/74 H 171/79 H Pulse Oximetry 100 97 99 09/05/18 19:00 09/05/18 19:01 09/05/18 20:00 Temperature 98.7 F Pulse Rate 63 61 60 Respiratory Rate 21 21 24 Blood Pressure 164/74 H 158/74 H Pulse Oximetry 99 99 99 09/05/18 20:16 09/05/18 21:00 09/05/18 22:00 Temperature Pulse Rate 63 61 59 L Respiratory Rate 16 22 21 Blood Pressure 166/77 H 161/75 H Pulse Oximetry 100 99 09/05/18 23:00 09/05/18 23:11 09/06/18 00:00 Temperature Pulse Rate 61 58 L 60 Respiratory Rate 22 16 19 Blood Pressure 178/81 H Pulse Oximetry 100 99 09/06/18 00:01 09/06/18 01:00 09/06/18 02:00 Temperature Pulse Rate 58 L 55 L 54 L Respiratory Rate 19 17 16 Blood Pressure 162/75 H 156/72 H Pulse Oximetry 99 100 100 09/06/18 02:01 09/06/18 03:00 09/06/18 03:01 Temperature Pulse Rate 53 L 59 L 62 Respiratory Rate 16 17 16 Blood Pressure 132/63 178/82 H Pulse Oximetry 99 99 100 09/06/18 03:33 09/06/18 04:00 09/06/18 07:27 Temperature Pulse Rate 63 67 60 Respiratory Rate 14 21 16 Blood Pressure 164/72 H Pulse Oximetry 88 L 100 09/06/18 08:00 09/06/18 12:00 Temperature 97.8 F 98.3 F Pulse Rate 57 L 66 Respiratory Rate 19 20 Blood Pressure 164/76 H 104/57 L Pulse Oximetry 98 99 Intake & Output 09/05/18 09/06/18 09/06/18 18:59 06:59 18:59 Intake Total 1200 / 1200 1999 / 1999 Output Total 1300 / 1300 1500 / 1500 Balance -100 / -100 500 / 500 Weight 101.9 kg Intake: IV 450 / 450 Heparin/D5W 25,000 U/250 mL 25, 250 / 250 000 unit In 250 ml @ Per Protocol IV.CONT TITRATE PRN Rx #:[id number] KCl 20 mEq Premix Inj 20 meq In 200 / 200 100 ml @ 50 mls/hr IV.SIG Q2H MAURO Rx#:[id number] Oral 750 / 750 1999 Output: Urine 1300 / 1300 1500 / 1500 Other: Date of Last Bowel Movement 09/04/18 09/05/18 09/05/18 # Bowel Movements 0 Narrative: GENERAL: Very pleasant, resting in bed in no acute distress. SKIN: Warm and dry. ENT: Mucous membranes pink and moist. CARDIOVASCULAR: Regular rate and rhythm. S1, S2. RESPIRATORY: Decreased breath sounds. GASTROINTESTINAL: Abdomen soft, non-tender, nondistended. MUSCULOSKELETAL: Mild lower extremity edema. NEUROLOGICAL: Alert. - Urinary Catheter Management Indwelling Urethral Catheter Cath placed during this visit: yes, but has since been removed by the nurse Reason for continuing: Decision to DC catheter Insertion date: 09/02/18 Insertion time: 06:40 Removal date: 09/02/18 Removal time: 18:00 <Khushbu Gill - Last Filed: 09/06/18 14:33> Vital signs: Vital Signs 09/05/18 23:00 09/05/18 23:11 09/06/18 00:00 Temperature Pulse Rate 61 58 L 60 Respiratory Rate 22 16 19 Blood Pressure 178/81 H Pulse Oximetry 100 99 09/06/18 00:01 09/06/18 01:00 09/06/18 02:00 Temperature Pulse Rate 58 L 55 L 54 L Respiratory Rate 19 17 16 Blood Pressure 162/75 H 156/72 H Pulse Oximetry 99 100 100 09/06/18 02:01 09/06/18 03:00 09/06/18 03:01 Temperature Pulse Rate 53 L 59 L 62 Respiratory Rate 16 17 16 Blood Pressure 132/63 178/82 H Pulse Oximetry 99 99 100 09/06/18 03:33 09/06/18 04:00 09/06/18 05:00 Temperature Pulse Rate 63 67 69 Respiratory Rate 14 21 25 H Blood Pressure 164/72 H Pulse Oximetry 88 L 97 09/06/18 06:00 09/06/18 07:00 09/06/18 07:27 Temperature Pulse Rate 57 L 74 60 Respiratory Rate 16 20 16 Blood Pressure Pulse Oximetry 98 98 100 09/06/18 08:00 09/06/18 08:07 09/06/18 09:00 Temperature 97.8 F Pulse Rate 55 L 56 L 62 Respiratory Rate 20 22 26 H Blood Pressure 164/76 H 184/76 H Pulse Oximetry 99 99 98 09/06/18 10:09 09/06/18 10:21 09/06/18 11:00 Temperature Pulse Rate 76 69 57 L Respiratory Rate 21 21 18 Blood Pressure 144/65 H Pulse Oximetry 80 L 97 97 09/06/18 12:00 09/06/18 13:00 09/06/18 13:14 Temperature 98.3 F Pulse Rate 62 61 72 Respiratory Rate 20 23 26 H Blood Pressure 104/57 L 104/57 L Pulse Oximetry 98 99 91 L 09/06/18 14:00 09/06/18 15:00 09/06/18 16:00 Temperature 98.6 F Pulse Rate 71 70 59 L Respiratory Rate 24 22 20 Blood Pressure 155/72 H Pulse Oximetry 95 98 98 09/06/18 16:46 09/06/18 17:00 09/06/18 18:00 Temperature Pulse Rate 60 58 L 75 Respiratory Rate 19 18 23 Blood Pressure 155/72 H Pulse Oximetry 97 98 90 L 09/06/18 19:00 09/06/18 20:00 09/06/18 20:29 Temperature 98.2 F Pulse Rate 74 71 76 Respiratory Rate 19 29 H 23 Blood Pressure 151/70 H Pulse Oximetry 89 L 96 96 09/06/18 20:43 09/06/18 21:39 Temperature 97.9 F Pulse Rate 68 Respiratory Rate 17 Blood Pressure 161/76 H Pulse Oximetry 97 99 Intake & Output 09/06/18 09/06/18 09/07/18 06:59 18:59 06:59 Intake Total 1999 / 1999 960 / 960 Output Total 1500 / 1500 1400 / 1400 250 / 250 Balance 500 / 500 -440 / -440 -250 / -250 Weight 101.9 kg Intake: Oral 1999 / 1999 960 / 960 Output: Urine 1500 / 1500 1400 / 1400 250 / 250 Other: Date of Last Bowel Movement 09/05/18 09/05/18 09/06/18 # Bowel Movements 1 - Urinary Catheter Management Indwelling Urethral Catheter Cath placed during this visit: no <Ayush Del Rio - Last Filed: 09/06/18 22:24> Assessment and Plan - Assessment (1) Chronic kidney disease Code(s): N18.9 - Chronic kidney disease, unspecified Status: Acute Plan: Patient with chronic kidney disease and JESSICA. Renal function has improved today. Monitor urine output, patient on Lasix. Avoid Nephrotoxins. Monitor renal function. (2) Respiratory failure requiring intubation Code(s): J96.90 - Respiratory failure, unspecified, unspecified whether with hypoxia or hypercapnia Status: Acute Plan: He had fluid overload and resp. failure. Now extubated. (3) Hypernatremia Code(s): E87.0 - Hyperosmolality and hypernatremia Status: Acute Plan: Resolved. (4) Diabetes mellitus Code(s): E11.9 - Type 2 diabetes mellitus without complications Status: Chronic Qualifiers: Diabetes mellitus type: type 2 Diabetes mellitus termite helper insulin use: unspecified residential insulin use status Diabetes mellitus complication status : with unspecified complications Qualified Code(s): E11.8 - Type 2 diabetes mellitus with unspecified complications Plan: Maintain blood glucose between 140 and 180 while hospitalized. (5) Hypothyroidism Code(s): E03.9 - Hypothyroidism, unspecified Status: Chronic Qualifiers: Hypothyroidism type: unspecified Qualified Code(s): E03.9 - Hypothyroidism , unspecified Plan: Patient on Synthroid. <Khushbu Gill - Last Filed: 09/06/18 14:33> - Assessment (1) Chronic kidney disease Code(s): N18.9 - Chronic kidney disease, unspecified Status: Acute (2) Respiratory failure requiring intubation Code(s): J96.90 - Respiratory failure, unspecified, unspecified whether with hypoxia or hypercapnia Status: Acute (3) Hypernatremia Code(s): E87.0 - Hyperosmolality and hypernatremia Status: Acute (4) Diabetes mellitus Code(s): E11.9 - Type 2 diabetes mellitus without complications Status: Chronic Qualifiers: Diabetes mellitus type: type 2 Diabetes mellitus residential insulin use: unspecified residential insulin use status Diabetes mellitus complication status : with unspecified complications Qualified Code(s): E11.8 - Type 2 diabetes mellitus with unspecified complications (5) Hypothyroidism Code(s): E03.9 - Hypothyroidism, unspecified Status: Chronic Qualifiers: Hypothyroidism type: unspecified Qualified Code(s): E03.9 - Hypothyroidism , unspecified - Attending Attestation patient was seen and examined. Renal function has improved. Replace potassium. On diuretic. Respiratory failure has improved. <Ayush Del Rio - Last Filed: 09/06/18 22:24>
[2018-09-06 16:48] LABS: Baso % (Auto) 0.3 % (0.0-2.0); Eos # (Auto) 0.2 th/mm3 (0.0-0.4); Eos % (Auto) 6.2 % (0.0-4.0); Hematocrit 34.9 % (39.0-51.0); Hemoglobin 11.7 gm/dL (13.0-17.0); Lymph # (Auto) 0.7 th/mm3 (1.0-4.8); Lymph % (Auto) 21.7 % (9.0-44.0); Mean Corpuscular HGB Conc 33.5 % (32.0-36.0); Mean Corpuscular Hemoglobin 28.6 pg (27.0-34.0); Mean Corpuscular Volume 85.3 fL (80.0-100.0); Mean Platelet Volume 8.7 fL (7.0-11.0); Mono # (Auto) 0.3 th/mm3 (0.0-0.9); Mono % (Auto) 10.8 % (0.0-8.0); Platelet Count 113 th/mm3 (150-450); Red Blood Count 4.09 mil/mm3 (4.50-5.90); White Blood Count 3.2 th/mm3 (4.0-11.0)
[2018-09-06 17:10] LABS: Calcium 8.2 mg/dL (8.5-10.1); Carbon Dioxide 34.2 meq/L (21.0-32.0); Potassium 3.5 meq/L (3.5-5.1)
--- NOTE | 2018-09-06 18:41 | P.PNIM ---
Subjective Interval history: The patient was seen earlier today. Says she feels tired. With some sob sattign wellon NC. Doesn;t have O2 at home. Denies chest pain. Eating better. No cough. Physical Exam Vital signs: Last Vital Signs Temp 98.6 F 09/06/18 16:00 Pulse 59 L 09/06/18 16:00 Resp 20 09/06/18 16:00 BP 155/72 H 09/06/18 16:00 Pulse Ox 98 09/06/18 16:00 Intake & Output 09/04/18 09/05/18 09/06/18 09/07/18 06:59 06:59 06:59 06:59 Intake Total 650 / 650 1400 / 1400 3200 / 3200 960 / 960 Output Total 4000 / 4000 4150 / 4150 2800 / 2800 1400 / 1400 Balance -3350 / -3350 -2750 / -2750 400 / 400 -440 / -440 Weight 104.5 kg 101.2 kg 101.9 kg Narrative: GENERAL: Very pleasant 88 yo male, resting in bed in no acute distress. SKIN: Warm and dry. ENT: Mucous membranes pink and moist. CARDIOVASCULAR: Regular rate and rhythm. S1, S2. RESPIRATORY: Decreased breath sounds. Sattign well while on NC GASTROINTESTINAL: Abdomen soft, non-tender, nondistended. MUSCULOSKELETAL: Mild lower extremity edema. NEUROLOGICAL: Awake and Alert. No focal deficits. Urinary Catheter Management Indwelling Urethral Catheter: Cath placed during this visit: yes, but has since been removed by the nurse Insertion date: 09/02/18 Insertion time: 06:40 Removal date: 09/02/18 Removal time: 18:00 Results Labs CBC & Chem 7: 09/06/18 16:00 09/06/18 16:00 Assessment and Plan (1) Chronic kidney disease: Code(s): N18.9 - Chronic kidney disease, unspecified Status: Acute (2) Respiratory failure requiring intubation: Code(s): J96.90 - Respiratory failure, unspecified, unspecified whether with hypoxia or hypercapnia Status: Acute (3) Hypernatremia: Code(s): E87.0 - Hyperosmolality and hypernatremia Status: Acute (4) Diabetes mellitus: Code(s): E11.9 - Type 2 diabetes mellitus without complications Status: Chronic (5) Hypothyroidism: Code(s): E03.9 - Hypothyroidism, unspecified Status: Chronic Plan Neuro/Psych: Alert and oriented at baseline Acetaminophen 650 mg by tube every 6 hours as needed fever CV: History of congestive heart failure nonischemic cardiomyopathy with low EF 20% History of essential hypertension Elevated troponin, likely from demand ischemia from CHF and decreased renal clearance Elevated BNP Patient's land surveying party chief is Dr. Mireles. F/U cardiology recommendation Initial troponin 0.15->.26, now down trending 0.19. with normal sinus rhythm. ST elevation in the septal leads. Serial troponins downward trend, likely elevated from demand ischemia from chf / decreased renal clearance 09/03 2D echocardiogram -EF 20-25% with global hypokinesis moderate MR, trace TR Did not receive aspirin due to anti-inflammatory allergies/multiple. Continue low-dose beta-shalini. No BUSHRA inhibitor secondary to acute kidney injury. Continue atorvastatin 10 mg daily Currently on a heparin drip 100u/hr Patient is on carvedilol 3.2 mg twice daily and amlodipine 5 mg daily at home Patient is on furosemide 40 mg p.o. twice daily at home Furosemide 40 mg IV twice daily. Received 80 mg x1 in the ED DCd heparin ( after 3 days per cardio), Dr Corey ff Resp: Acute hypoxemic hypercapnic respiratory failure secondary to flash pulmonary edema, resolving , was intubated and successfully extubated , currently satting well on NC Albuterol/ipratropium aerosols every 4 hours with albuterol every 2 as needed dyspnea Head of bed at 30 degrees Extubated 09/04 Spontaneous breathing trials and clinically indicated GI: Elevated total protein Formal swallow evaluation performed-initiate carb controlled, cardiac diet Pantoprazole for GI prophylaxis Docusate serum/senna 1 tablet twice daily for bowel regimen : Parikh catheter has been placed for accurate I's and O's in a critical patient on diuretics Endo: Diabetes mellitus Acute hyperglycemia Hypothyroidism Sliding scale insulin aspart insulin with Accu-Cheks to maintain euglycemia/ medium protocol Check hemoglobin A1c pending Continue levothyroxine 88 mcg daily Renal: Acute on chronic kidney injury Renal ultrasound-chronic medical disease Monitor urine output- 250cc overnight in 12 hours Accurate I's and O's Follow-up creatinine Avoid nephrotoxic medications Nephrology consulted, appreciate recommendations Heme: Thrombocytopenia Monitor CBC daily. Follow trends. No indication for transfusion of blood products this time. Currently on heparin drip per [place] protocol ID: Monitor for signs and symptomatology infection FEN: Acute hypernatremia- resolved Monitor BMP Replace electrolytes as clinically indicated Currently on normal saline at 30 cc an hour MSK: Bilateral lower extremity edema Physical therapy evaluate and treat 09/03 Dopplers duplex bilateral lower extremities-no evidence of DVT Access -Left IJ CVL day 2 placed 09/02 -Left femoral arterial line placed 09/02 Prophylaxis -GI -pantoprazole -DVT - DC heparin drip per cardio. Start lovenox sq per DVT ppx protocol. Patient's son requesting no SCDs per records. Physical deconditioning: PT/OT consult Code Status: Full code Discussed Condition With: discussed with the patient. nurse _ (1) Chronic kidney disease Qualifiers: Chronic kidney disease stage: (2) Diabetes mellitus Qualifiers: Diabetes mellitus type: type 2 Diabetes mellitus predatory animal exterminator insulin use: unspecified predatory animal exterminator insulin use status Diabetes mellitus complication status : with unspecified complications Diabetes mellitus complication detail: Diabetic retinopathy severity: Proliferative retinopathy type: Diabetes mellitus macular edema: Laterality: Chronic kidney disease stage: Qualified Code(s): E11.8 - Type 2 diabetes mellitus with unspecified complications (3) Hypothyroidism Qualifiers: Hypothyroidism type: unspecified Qualified Code(s): E03.9 - Hypothyroidism, unspecified
--- NOTE | 2018-09-06 23:38 | P.PNCA ---
Subjective Interval history: Doing well No chest pain/SOB Medications and Allergies Active Medications: Active Medications Acetaminophen (Tylenol) 650 mg PO Q6H PRN PRN Reason: FEVER Last Admin: 09/03/18 00:11 Dose: 650 mg Albuterol (Albuterol Neb (Prn)) 2.5 mg NEB Q2HR NEB PRN PRN Reason: SHORTNESS OF BREATH/WHEEZING Artificial Tears (Tears Naturale Opth Drops) 1 drop EACH EYE Q8H [facility] Last Admin: 09/06/18 16:13 Dose: Not Given Atorvastatin Calcium (Lipitor) 10 mg PO HS [facility] Last Admin: 09/06/18 20:22 Dose: 10 mg Bisacodyl (Dulcolax Supp) 10 mg RECTAL DAILY PRN PRN Reason: SEVERE CONSITIPATION Carvedilol (Coreg) 3.125 mg PO BID [facility] Last Admin: 09/06/18 20:21 Dose: 3.125 mg Chlorhexidine Gluconate (Chlorhexidine 2% Cloth) 3 pack TOPICAL DAILY@0400 [facility] Stop: 09/08/18 03:59 Last Admin: 09/06/18 03:43 Dose: 3 pack Chlorhexidine Gluconate (Chlorhexidine 2% Cloth) 3 pack TOPICAL DAILY@0400 PRN PRN Reason: Extra cloth needed Stop: 09/08/18 03:59 Chlorhexidine Gluconate (Peridex 0.12% Oral Kit) 15 ml OROPHARYNG BID@0800, 2000 [facility] Last Admin: 09/06/18 20:22 Dose: Not Given Dextrose (D50w Vial) 50 ml IV.PUSH UNSCH PRN PRN Reason: PER HYPOGLYCEMIA PROTOCOL Enoxaparin Sodium (Lovenox Inj) 30 mg SQ DAILY [facility] Last Admin: 09/06/18 08:14 Dose: 30 mg Fentanyl Citrate (Fentanyl Inj) 50 mcg IV.PUSH Q1H PRN PRN Reason: PAIN SCALE 1 TO 10 Furosemide (Lasix Inj) 40 mg IV.PUSH BID@0900,1800 [facility] Last Admin: 09/06/18 17:36 Dose: 40 mg Glucagon (Glucagon Inj) 1 mg OTHER PRN PRN PRN Reason: for Hypoglycemia Protocol Nitroglycerin/Dextrose (Nitroglycerin Drip Premix) 50 mg in 250 mls @ 1.5 mls/ hr IV.CONT TITRATE PRN; Protocol PRN Reason: Per Protocol Last Titration: 09/03/18 06:20 Dose: Infused Insulin Aspart (Novolog Insulin Correctional Sugar Inj) 0 unit SQ Q6HR [facility]; Protocol Last Admin: 09/06/18 17:37 Dose: 4 unit Lactulose (Lactulose Liq) 30 ml PO DAILY PRN PRN Reason: SEVERE CONSITIPATION Levothyroxine Sodium (Synthroid) 88 mcg PO DAILY@0600 [facility] Last Admin: 09/06/18 08:46 Dose: 88 mcg Miscellaneous Medication () 1 each OROPHARYNG 0000,0400,1200,1600 [facility] Last Admin: 09/06/18 16:13 Dose: Not Given Ondansetron HCl (Zofran Inj) 4 mg IV.PUSH Q6H PRN PRN Reason: NAUSEA OR VOMITING Pantoprazole Sodium (Protonix Inj) 40 mg IV.PUSH DAILY [facility] Last Admin: 09/06/18 08:14 Dose: 40 mg Promethazine HCl (Phenergan Inj) 25 mg IV.CENTRAL Q6H PRN PRN Reason: BREAKTHROUGH NAUSEA Senna/Docusate Sodium (Tahmina-Colace) 1 tab PO BID [facility] Last Admin: 09/06/18 20:22 Dose: 1 tab Sennosides (Senokot) 17.2 mg PO Q12H PRN PRN Reason: Moderate Constipation Sodium Chloride (Ns Flush) 2 ml IV.FLUSH BID [facility] Last Admin: 09/06/18 20:22 Dose: 2 ml Sodium Chloride (Ns Flush) 2 ml IV.FLUSH PRN PRN PRN Reason: FLUSH AFTER USING IV ACCESS Last Admin: 09/02/18 12:09 Dose: 2 ml Terbutaline Sulfate (Brethine Inj) 1 mg SQ UNSCH PRN PRN Reason: For Extravasation Allergies Allergy/AdvReac Type Severity Reaction Status Date / Time aspirin Allergy Severe Bleeding Verified 09/02/18 16:03 diclofenac Allergy Severe Hives Verified 09/02/18 07:58 etodolac Allergy Severe Hives Verified 09/02/18 07:58 flurbiprofen Allergy Severe Hives Verified 09/02/18 07:58 ibuprofen Allergy Severe Hives Verified 09/02/18 07:58 indomethacin Allergy Severe Hives Verified 09/02/18 07:58 ketoprofen Allergy Severe Hives Verified 09/02/18 07:58 ketorolac Allergy Severe Hives Verified 09/02/18 07:58 naproxen Allergy Severe Hives Verified 09/02/18 07:58 NSAIDS (Non-Steroidal Allergy Severe Bleeding Verified 09/02/18 16:03 Anti-Inflamma oxaprozin Allergy Severe Hives Verified 09/02/18 07:58 Home Medications Medication Instructions Recorded Confirmed Type amlodipine 5 mg PO DAILY 09/02/18 09/02/18 History carvedilol 3.125 mg PO BID 09/02/18 09/02/18 History furosemide [Lasix] 40 mg PO BID 09/02/18 09/02/18 History glipizide 5 mg PO DAILY 09/02/18 09/02/18 History levothyroxine [Synthroid] 88 mcg PO DAILY 09/02/18 09/02/18 History potassium chloride 10 meq PO DAILY 09/02/18 09/02/18 History Physical Exam Vital signs: Vital Signs 09/06/18 00:00 09/06/18 00:01 09/06/18 01:00 Temperature Pulse Rate 60 58 L 55 L Respiratory Rate 19 19 17 Blood Pressure 162/75 H 156/72 H Pulse Oximetry 99 99 100 09/06/18 02:00 09/06/18 02:01 09/06/18 03:00 Temperature Pulse Rate 54 L 53 L 59 L Respiratory Rate 16 16 17 Blood Pressure 132/63 Pulse Oximetry 100 99 99 09/06/18 03:01 09/06/18 03:33 09/06/18 04:00 Temperature Pulse Rate 62 63 67 Respiratory Rate 16 14 21 Blood Pressure 178/82 H 164/72 H Pulse Oximetry 100 88 L 09/06/18 05:00 09/06/18 06:00 09/06/18 07:00 Temperature Pulse Rate 69 57 L 74 Respiratory Rate 25 H 16 20 Blood Pressure Pulse Oximetry 97 98 98 09/06/18 07:27 09/06/18 08:00 09/06/18 08:07 Temperature 97.8 F Pulse Rate 60 55 L 56 L Respiratory Rate 16 20 22 Blood Pressure 164/76 H 184/76 H Pulse Oximetry 100 99 99 09/06/18 09:00 09/06/18 10:09 09/06/18 10:21 Temperature Pulse Rate 62 76 69 Respiratory Rate 26 H 21 21 Blood Pressure 144/65 H Pulse Oximetry 98 80 L 97 09/06/18 11:00 09/06/18 12:00 09/06/18 13:00 Temperature 98.3 F Pulse Rate 57 L 62 61 Respiratory Rate 18 20 23 Blood Pressure 104/57 L Pulse Oximetry 97 98 99 09/06/18 13:14 09/06/18 14:00 09/06/18 15:00 Temperature Pulse Rate 72 71 70 Respiratory Rate 26 H 24 22 Blood Pressure 104/57 L Pulse Oximetry 91 L 95 98 09/06/18 16:00 09/06/18 16:46 09/06/18 17:00 Temperature 98.6 F Pulse Rate 59 L 60 58 L Respiratory Rate 20 19 18 Blood Pressure 155/72 H 155/72 H Pulse Oximetry 98 97 98 09/06/18 18:00 09/06/18 19:00 09/06/18 20:00 Temperature 98.2 F Pulse Rate 75 74 71 Respiratory Rate 23 19 29 H Blood Pressure Pulse Oximetry 90 L 89 L 96 09/06/18 20:29 09/06/18 20:43 09/06/18 21:39 Temperature 97.9 F Pulse Rate 76 68 Respiratory Rate 23 17 Blood Pressure 151/70 H 161/76 H Pulse Oximetry 96 97 99 Intake & Output 09/06/18 09/06/18 09/07/18 06:59 18:59 06:59 Intake Total 1999 960 / 960 Output Total 1500 / 1500 1400 / 1400 250 / 250 Balance 500 / 500 -440 / -440 -250 / -250 Weight 101.9 kg Intake: Oral 1999 960 / 960 Output: Urine 1500 / 1500 1400 / 1400 250 / 250 Other: Date of Last Bowel Movement 09/05/18 09/05/18 09/06/18 # Bowel Movements 1 Narrative: GENERAL: Very pleasant 88 yo male, resting in bed in no acute distress. SKIN: Warm and dry. ENT: Mucous membranes pink and moist. CARDIOVASCULAR: Regular rate and rhythm. S1, S2. RESPIRATORY: Decreased breath sounds. GASTROINTESTINAL: Abdomen soft, non-tender, nondistended. MUSCULOSKELETAL: Mild lower extremity edema. NEUROLOGICAL: Awake and Alert. No focal deficits. - Urinary Catheter Management Indwelling Urethral Catheter Cath placed during this visit: yes, but has since been removed by the nurse Reason for continuing: Decision to DC catheter Insertion date: 09/02/18 Insertion time: 06:40 Removal date: 09/02/18 Removal time: 18:00 Results 09/06/18 16:00 09/06/18 16:00 Cardiac Enzymes 09/05/18 Range/Units 05:10 Troponin I 0.19 H (0.02-0.05) ng/mL Coagulation 09/05/18 Range/Units 05:10 APTT 52.8 H (23.4-31.7) sec CBC 09/05/18 09/06/18 Range/Units 05:10 16:00 WBC 4.0 3.2 L (4.0-11.0) th/mm3 RBC 3.88 L 4.09 L (4.50-5.90) mil/mm3 Hgb 11.0 L 11.7 L (13.0-17.0) gm/dL Hct 32.6 L 34.9 L (39.0-51.0) % Plt Count 97 L 113 L (150-450) th/mm3 Neut # (Auto) 2.7 2.0 (1.8-7.7) th/mm3 Lymph # (Auto) 0.8 L 0.7 L (1.0-4.8) th/mm3 Mcpherson # (Auto) 0.4 0.3 (0.0-0.9) th/mm3 Eos # (Auto) 0.2 0.2 (0.0-0.4) th/mm3 Baso # (Auto) 0.0 0.0 (0.0-0.2) th/mm3 Comprehensive Metabolic Panel 09/05/18 09/06/18 Range/Units 05:10 16:00 Sodium 141 140 (136-145) meq/L Potassium 3.0 L 3.5 (3.5-5.1) meq/L Chloride 102 101 (98-107) meq/L Carbon Dioxide 31.6 34.2 H (21.0-32.0) meq/L BUN 40 H 36 H (7-18) mg/dL Creatinine 2.68 H 2.43 H (0.60-1.30) mg/dL Calcium 8.3 L 8.2 L (8.5-10.1) mg/dL Intake and Output 09/06/18 09/06/18 09/07/18 14:59 22:59 06:59 Intake Total 960 / 960 Output Total 1650 / 1650 Balance -690 / -690 Intake: Oral 960 / 960 Output: Urine 1650 / 1650 Other: Date of Last Bowel Movement 09/05/18 09/06/18 # Bowel Movements 1 Assessment and Plan - Assessment (1) NICM (nonischemic cardiomyopathy) Code(s): I42.8 - Other cardiomyopathies Status: Acute Plan: Office chart notes non-ischemic cardiomyopathy; ef last year not as low as seen here though; continue medical mgt; on bb; bushra/arb held for now due to renal failure/low bp's (2) Elevated troponin Code(s): R74.8 - Abnormal levels of other serum enzymes Status: Acute Plan: likely due to chf/ckd; known non-ischemic cardiomyopathy (3) Acute on chronic systolic (congestive) heart failure Code(s): I50.23 - Acute on chronic systolic (congestive) heart failure Status : Acute Plan: on IV lasix, diuresing (4) Respiratory failure requiring intubation Code(s): J96.90 - Respiratory failure, unspecified, unspecified whether with hypoxia or hypercapnia Status: Acute (5) CHF (congestive heart failure) Code(s): I50.9 - Heart failure, unspecified Status: Acute - Plan 1) Pulmonary edema Due to 's illness, patient admits to not taking his meds as he should Fluid overload state Has diuresed off 8L 2) Known NICM EF 20-25% Con't BB No BUSHRA-I/Entresto/ARB due to JESSICA on CKD 3) Acute respiratory distress requiring intubation s/p extubation 4) Elevated troponin Most likely Type 2 in the setting of CHF/CKD No plan for ischemic work up Heparin drip stopped 5) HTN Will plan to titrate up Coreg Unable to place on BUSHRA-I/Entresto/ARB due to JESSICA on CKD (5) CHF (congestive heart failure) Qualifiers: Heart failure type: unspecified Heart failure chronicity: unspecified Qualified Code(s): I50.9 - Heart failure, unspecified
[2018-09-07] MEDS: Artificial Tears Opth Drops 15 ML Bottle EACH EYE SCH ×3 (00:12→17:43)
[2018-09-07] MEDS: Oral Hygiene Kit OROPHARYNG SCH ×4 (03:35→23:22)
[2018-09-07] MEDS: Chlorhexidine Gluconate 2% 1 Pack (2 Cloths) TOPICAL SCH (03:35)
[2018-09-07] MEDS: Levothyroxine 88 MCG Tablet PO SCH (06:01)
[2018-09-07] MEDS: Insulin NovoLOG Aspart Correctional Sugar Inj SQ SCH ×4 (06:02→23:41)
[2018-09-07 06:32] LABS: Calcium 8.1 mg/dL (8.5-10.1); Carbon Dioxide 33.8 meq/L (21.0-32.0); Potassium 3.3 meq/L (3.5-5.1)
[2018-09-07 06:41] LABS: Baso % (Auto) 0.3 % (0.0-2.0); Eos # (Auto) 0.2 th/mm3 (0.0-0.4); Eos % (Auto) 6.5 % (0.0-4.0); Hematocrit 32.3 % (39.0-51.0); Lymph # (Auto) 0.9 th/mm3 (1.0-4.8); Lymph % (Auto) 25.9 % (9.0-44.0); Mean Corpuscular HGB Conc 34.2 % (32.0-36.0); Mean Corpuscular Volume 84.9 fL (80.0-100.0); Mono # (Auto) 0.4 th/mm3 (0.0-0.9); Mono % (Auto) 11.2 % (0.0-8.0); Neut % (Auto) 56.1 % (16.0-70.0); Platelet Count 119 th/mm3 (150-450); Red Cell Distribution Width 15.9 % (11.6-17.2); White Blood Count 3.5 th/mm3 (4.0-11.0)
[2018-09-07] MEDS: Chlorhexidine 0.12% Oral Kit 15 ML UDC OROPHARYNG SCH ×2 (07:22→20:19)
--- NOTE | 2018-09-07 08:43 | P.PNIM ---
Subjective Interval history: in no acute distress. looks fairly comfortable. no chest pain or sob. has occasional cough. Physical Exam Vital signs: Last Vital Signs Temp 97.9 F 09/07/18 04:00 Pulse 66 09/07/18 04:00 Resp 18 09/07/18 04:00 BP 143/70 H 09/07/18 04:00 Pulse Ox 98 09/07/18 04:00 Intake & Output 09/05/18 09/06/18 09/07/18 09/08/18 06:59 06:59 06:59 06:59 Intake Total 1400 / 1400 3200 / 3200 960 / 960 Output Total 4150 / 4150 2800 / 2800 1650 / 1650 Balance -2750 / -2750 400 / 400 -690 / -690 Weight 101.2 kg 101.9 kg 99.2 kg Constitutional no acute distress Routine Respiratory Exam Present CTA bilaterally Routine Cardiovascular Exam Present RRR Routine Abdominal Exam Present soft Routine Extremities Exam Comments: no pedal edema. Routine Neurological Exam Present alert and oriented X3 Urinary Catheter Management Indwelling Urethral Catheter: Cath placed during this visit: yes, but has since been removed by the nurse Insertion date: 09/02/18 Insertion time: 06:40 Removal date: 09/02/18 Removal time: 18:00 Results Labs CBC & Chem 7: 09/07/18 05:13 09/07/18 05:13 Assessment and Plan (1) Chronic kidney disease: Code(s): N18.9 - Chronic kidney disease, unspecified Status: Acute (2) Respiratory failure requiring intubation: Code(s): J96.90 - Respiratory failure, unspecified, unspecified whether with hypoxia or hypercapnia Status: Acute (3) Hypernatremia: Code(s): E87.0 - Hyperosmolality and hypernatremia Status: Acute (4) Diabetes mellitus: Code(s): E11.9 - Type 2 diabetes mellitus without complications Status: Chronic (5) Hypothyroidism: Code(s): E03.9 - Hypothyroidism, unspecified Status: Chronic Plan A/P History of congestive heart failure nonischemic cardiomyopathy with low EF 20% History of essential hypertension Elevated troponin, likely from demand ischemia from CHF and decreased renal clearance Elevated BNP 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 F/U cardiology recommendation Initial troponin 0.15->.26, now down trending 0.19. with normal sinus rhythm. ST elevation in the septal leads. Serial troponins downward trend, likely elevated from demand ischemia from chf / decreased renal clearance 09/03 2D echocardiogram -EF 20-25% with global hypokinesis moderate MR, trace TR Did not receive aspirin due to anti-inflammatory allergies/multiple. Continue low-dose beta-shalini. No BUSHRA inhibitor secondary to acute kidney injury. Continue atorvastatin 10 mg daily Heparin drip was dc'ed. Coreg was increased. Patient is on furosemide 40 mg p.o. twice daily at home Furosemide 40 mg IV twice daily. Received 80 mg x1 in the ED Dr Madhav naidu Acute hypoxemic hypercapnic respiratory failure secondary to flash pulmonary edema, resolving , was intubated and successfully extubated , currently satting well on NC Albuterol/ipratropium aerosols every 4 hours with albuterol every 2 as needed dyspnea Head of bed at 30 degrees Extubated 09/04 Spontaneous breathing trials and clinically indicated Elevated total protein Formal swallow evaluation performed-initiate carb controlled, cardiac diet Pantoprazole for GI prophylaxis Docusate serum/senna 1 tablet twice daily for bowel regimen Parikh catheter has been placed for accurate I's and O's in a critical patient on diuretics Diabetes mellitus Acute hyperglycemia Hypothyroidism Sliding scale insulin aspart insulin with Accu-Cheks to maintain euglycemia/ medium protocol Continue levothyroxine 88 mcg daily Acute on chronic kidney injury Renal ultrasound-chronic medical disease Monitor urine output- 250cc overnight in 12 hours Accurate I's and O's Follow-up creatinine Avoid nephrotoxic medications Nephrology consulted, appreciate recommendations Thrombocytopenia Monitor CBC daily. Follow trends. No indication for transfusion of blood products this time. Acute hypernatremia- resolved Monitor BMP Replace electrolytes as clinically indicated Currently on normal saline at 30 cc an hour MSK: Bilateral lower extremity edema Physical therapy evaluate and treat 09/03 Dopplers duplex bilateral lower extremities-no evidence of DVT Prophylaxis -GI -pantoprazole -DVT - DC'ed heparin drip per cardio. Start lovenox sq per DVT ppx protocol. Patient's son requesting no SCDs per records. Physical deconditioning: PT/OT consult Discharge Planning: d/w the patient regarding rehab which he's going to talk to his son about it. dc planning; within the next 24-48 hrs if stable and cleared by cardiology and nephrology. 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
[2018-09-07] MEDS: Carvedilol 6.25 MG Tablet PO SCH ×2 (09:45→22:24)
[2018-09-07] MEDS: Senna/Docusate Sodium 8.6/50 MG Tablet PO SCH ×2 (09:45→22:24)
[2018-09-07] MEDS: Enoxaparin Inj 30 MG/0.3 ML Syringe SQ SCH (09:46)
--- NOTE | 2018-09-07 11:52 | P.PNNP ---
Subjective Interval history: Patient was seen, no complaints, no distress. Son was at bedside. Patient has been transferred out of the ICU. Patient's renal function slightly declined today. Patient stated he has had poor PO fluid intake. <Khushbu Gill - Last Filed: 09/07/18 12:47> Physical Exam Vital signs: Vital Signs 09/06/18 12:00 09/06/18 13:00 09/06/18 13:14 Temperature 98.3 F Pulse Rate 62 61 72 Respiratory Rate 20 23 26 H Blood Pressure 104/57 L 104/57 L Pulse Oximetry 98 99 91 L 09/06/18 14:00 09/06/18 15:00 09/06/18 16:00 Temperature 98.6 F Pulse Rate 71 70 59 L Respiratory Rate 24 22 20 Blood Pressure 155/72 H Pulse Oximetry 95 98 98 09/06/18 16:46 09/06/18 17:00 09/06/18 18:00 Temperature Pulse Rate 60 58 L 75 Respiratory Rate 19 18 23 Blood Pressure 155/72 H Pulse Oximetry 97 98 90 L 09/06/18 19:00 09/06/18 20:00 09/06/18 20:29 Temperature 98.2 F Pulse Rate 74 71 76 Respiratory Rate 19 29 H 23 Blood Pressure 151/70 H Pulse Oximetry 89 L 96 96 09/06/18 20:43 09/06/18 21:39 09/06/18 23:58 Temperature 97.9 F 97.7 F Pulse Rate 68 57 L Respiratory Rate 17 17 Blood Pressure 161/76 H 169/75 H Pulse Oximetry 97 99 97 09/07/18 00:00 09/07/18 03:47 09/07/18 04:00 Temperature 97.9 F Pulse Rate 58 L 63 66 Respiratory Rate 18 Blood Pressure 143/70 H Pulse Oximetry 98 09/07/18 08:00 Temperature 98.1 F Pulse Rate 63 Respiratory Rate 20 Blood Pressure 150/75 H Pulse Oximetry 98 Intake & Output 09/06/18 09/07/18 09/07/18 18:59 06:59 18:59 Intake Total 960 / 960 Output Total 1400 / 1400 250 / 250 Balance -440 / -440 -250 / -250 Weight 99.2 kg Intake: Oral 960 / 960 Output: Urine 1400 / 1400 250 / 250 Other: Date of Last Bowel Movement 09/05/18 09/06/18 # Bowel Movements 1 Narrative: GENERAL: Very pleasant, resting in bed in no acute distress. SKIN: Warm and dry. ENT: Mucous membranes pink and moist. CARDIOVASCULAR: Regular rate and rhythm. S1, S2. RESPIRATORY: Decreased breath sounds. No respiratory distress. On 2 L nasal cannula. GASTROINTESTINAL: Abdomen soft, non-tender, nondistended. MUSCULOSKELETAL: No edema. NEUROLOGICAL: Alert. - Urinary Catheter Management Indwelling Urethral Catheter Cath placed during this visit: yes, but has since been removed by the nurse Reason for continuing: Decision to DC catheter Insertion date: 09/02/18 Insertion time: 06:40 Removal date: 09/02/18 Removal time: 18:00 <Khushbu Gill - Last Filed: 09/07/18 12:47> Vital signs: Vital Signs 09/06/18 18:00 09/06/18 19:00 09/06/18 20:00 Temperature 98.2 F Pulse Rate 75 74 71 Respiratory Rate 23 19 29 H Blood Pressure Pulse Oximetry 90 L 89 L 96 09/06/18 20:29 09/06/18 20:43 09/06/18 21:39 Temperature 97.9 F Pulse Rate 76 68 Respiratory Rate 23 17 Blood Pressure 151/70 H 161/76 H Pulse Oximetry 96 97 99 09/06/18 23:58 09/07/18 00:00 09/07/18 03:47 Temperature 97.7 F Pulse Rate 57 L 58 L 63 Respiratory Rate 17 Blood Pressure 169/75 H Pulse Oximetry 97 09/07/18 04:00 09/07/18 08:00 09/07/18 12:00 Temperature 97.9 F 98.1 F 98.2 F Pulse Rate 66 54 L 61 Respiratory Rate 18 20 20 Blood Pressure 143/70 H 150/75 H 160/79 H Pulse Oximetry 98 98 100 09/07/18 13:40 Temperature Pulse Rate Respiratory Rate Blood Pressure Pulse Oximetry 98 Intake & Output 09/06/18 09/07/18 09/07/18 18:59 06:59 18:59 Intake Total 960 / 960 Output Total 1400 / 1400 250 / 250 Balance -440 / -440 -250 / -250 Weight 99.2 kg Intake: Oral 960 / 960 Output: Urine 1400 / 1400 250 / 250 Other: Date of Last Bowel Movement 09/05/18 09/06/18 # Bowel Movements 1 - Urinary Catheter Management Indwelling Urethral Catheter Cath placed during this visit: no <Ayush Del Rio - Last Filed: 09/07/18 17:17> Assessment and Plan - Assessment (1) Chronic kidney disease Code(s): N18.9 - Chronic kidney disease, unspecified Status: Acute Plan: Patient with chronic kidney disease and JESSICA. Patient's renal function slightly declined today. PO intake encouraged. Monitor urine output, patient on Lasix. Avoid Nephrotoxins. Monitor renal function. (2) Respiratory failure requiring intubation Code(s): J96.90 - Respiratory failure, unspecified, unspecified whether with hypoxia or hypercapnia Status: Acute Plan: He had fluid overload and resp. failure. Now extubated. (3) Hypernatremia Code(s): E87.0 - Hyperosmolality and hypernatremia Status: Acute Plan: Resolved. (4) Diabetes mellitus Code(s): E11.9 - Type 2 diabetes mellitus without complications Status: Chronic Qualifiers: Diabetes mellitus type: type 2 Diabetes mellitus penitentiary insulin use: unspecified penitentiary insulin use status Diabetes mellitus complication status : with unspecified complications Qualified Code(s): E11.8 - Type 2 diabetes mellitus with unspecified complications Plan: Maintain blood glucose between 140 and 180 while hospitalized. (5) Hypothyroidism Code(s): E03.9 - Hypothyroidism, unspecified Status: Chronic Qualifiers: Hypothyroidism type: unspecified Qualified Code(s): E03.9 - Hypothyroidism , unspecified Plan: Patient on Synthroid. 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 I will change Furosemide to 40 mg PO BID. Replace potassium. <Ayush Del Rio - Last Filed: 09/07/18 17:17>
[2018-09-07] MEDS: Furosemide 40 MG Tablet PO SCH (18:23)
[2018-09-08] MEDS: Artificial Tears Opth Drops 15 ML Bottle EACH EYE SCH ×3 (00:53→17:36)
[2018-09-08] MEDS: Oral Hygiene Kit OROPHARYNG SCH ×3 (03:55→17:35)
[2018-09-08 05:29] LABS: Baso % (Auto) 0.3 % (0.0-2.0); Eos # (Auto) 0.3 th/mm3 (0.0-0.4); Eos % (Auto) 6.3 % (0.0-4.0); Hemoglobin 11.2 gm/dL (13.0-17.0); Mean Corpuscular HGB Conc 33.8 % (32.0-36.0); Mean Corpuscular Hemoglobin 28.5 pg (27.0-34.0); Mean Corpuscular Volume 84.5 fL (80.0-100.0); Mean Platelet Volume 8.1 fL (7.0-11.0); Mono # (Auto) 0.4 th/mm3 (0.0-0.9); Mono % (Auto) 10.3 % (0.0-8.0); Neut # (Auto) 2.3 th/mm3 (1.8-7.7); Neut % (Auto) 58.1 % (16.0-70.0); Platelet Count 126 th/mm3 (150-450); Red Blood Count 3.91 mil/mm3 (4.50-5.90); Red Cell Distribution Width 15.9 % (11.6-17.2)
[2018-09-08 05:58] LABS: Calcium 8.1 mg/dL (8.5-10.1); Carbon Dioxide 33.4 meq/L (21.0-32.0); Potassium 3.6 meq/L (3.5-5.1)
[2018-09-08] MEDS: Insulin NovoLOG Aspart Correctional Sugar Inj SQ SCH ×3 (06:30→17:37)
[2018-09-08] MEDS: Levothyroxine 88 MCG Tablet PO SCH (06:31)
[2018-09-08] MEDS: Chlorhexidine 0.12% Oral Kit 15 ML UDC OROPHARYNG SCH ×2 (10:28→19:33)
[2018-09-08] MEDS: Carvedilol 6.25 MG Tablet PO SCH ×2 (10:28→23:30)
[2018-09-08] MEDS: Furosemide 40 MG Tablet PO SCH ×2 (10:28→17:36)
[2018-09-08] MEDS: Senna/Docusate Sodium 8.6/50 MG Tablet PO SCH ×2 (10:28→23:30)
[2018-09-08] MEDS: Enoxaparin Inj 30 MG/0.3 ML Syringe SQ SCH (10:28)
--- NOTE | 2018-09-08 11:00 | P.PNIM ---
Subjective Interval history: in no acute distress. dizzy at times. no chest pain or sob but has occasional cough. no fever. d/w the son at the bedside. Physical Exam Vital signs: Last Vital Signs Temp 98.1 F 09/08/18 08:00 Pulse 67 09/08/18 08:00 Resp 16 09/08/18 08:00 BP 142/65 H 09/08/18 08:00 Pulse Ox 95 09/08/18 08:00 Intake & Output 09/06/18 09/07/18 09/08/18 09/09/18 06:59 06:59 06:59 06:59 Intake Total 3200 / 3200 960 / 960 720 / 720 Output Total 2800 / 2800 1650 / 1650 1850 / 1850 400 / 400 Balance 400 / 400 -690 / -690 -1130 / -1130 -400 / -400 Weight 101.9 kg 99.2 kg Constitutional no acute distress Routine Respiratory Exam Present CTA bilaterally Comments: diminished air entry in bases. Routine Cardiovascular Exam Present RRR Routine Abdominal Exam Present soft Routine Extremities Exam Comments: no pedal edema. Routine Neurological Exam Present alert and oriented X3 Urinary Catheter Management Indwelling Urethral Catheter: Cath placed during this visit: yes, but has since been removed by the nurse Insertion date: 09/02/18 Insertion time: 06:40 Removal date: 09/02/18 Removal time: 18:00 Results Labs CBC & Chem 7: 09/08/18 05:07 09/08/18 05:01 Assessment and Plan (1) Chronic kidney disease: Code(s): N18.9 - Chronic kidney disease, unspecified Status: Acute (2) Respiratory failure requiring intubation: Code(s): J96.90 - Respiratory failure, unspecified, unspecified whether with hypoxia or hypercapnia Status: Acute (3) Hypernatremia: Code(s): E87.0 - Hyperosmolality and hypernatremia Status: Acute (4) Diabetes mellitus: Code(s): E11.9 - Type 2 diabetes mellitus without complications Status: Chronic (5) Hypothyroidism: Code(s): E03.9 - Hypothyroidism, unspecified Status: Chronic Plan A/P History of congestive heart failure nonischemic cardiomyopathy with low EF 20% History of essential hypertension Elevated troponin, likely from demand ischemia from CHF and decreased renal clearance Elevated BNP Patient's puffer tender is Dr. Mireles. F/U cardiology recommendation Initial troponin 0.15->.26, now down trending 0.19. with normal sinus rhythm. ST elevation in the septal leads. Serial troponins downward trend, likely elevated from demand ischemia from chf / decreased renal clearance 09/03 2D echocardiogram -EF 20-25% with global hypokinesis moderate MR, trace TR Did not receive aspirin due to anti-inflammatory allergies/multiple. Continue low-dose beta-shalini. No BUSHRA inhibitor secondary to acute kidney injury. Continue atorvastatin 10 mg daily Heparin drip was dc'ed. Coreg was increased. Patient is on furosemide 40 mg p.o. twice daily at home; currently on the same dosage per nephrology. Dr Falcon ff Acute hypoxemic hypercapnic respiratory failure secondary to flash pulmonary edema, resolving , was intubated and successfully extubated , currently satting well on NC Albuterol/ipratropium aerosols every 4 hours with albuterol every 2 as needed dyspnea Extubated 09/04 Elevated total protein Formal swallow evaluation performed-initiate carb controlled, cardiac diet Docusate serum/senna 1 tablet twice daily for bowel regimen Parikh catheter has been placed for accurate I's and O's in a critical patient on diuretics Diabetes mellitus Acute hyperglycemia Hypothyroidism Sliding scale insulin aspart insulin with Accu-Cheks to maintain euglycemia/ medium protocol Continue levothyroxine 88 mcg daily Acute on chronic kidney injury Renal ultrasound-chronic medical disease Monitor urine output- 250cc overnight in 12 hours Accurate I's and O's Follow-up creatinine Avoid nephrotoxic medications Nephrology consulted, appreciate recommendations Thrombocytopenia Monitor CBC daily. Follow trends. No indication for transfusion of blood products this time. Acute hypernatremia- resolved Monitor BMP Replace electrolytes as clinically indicated Currently on normal saline at 30 cc an hour MSK: Bilateral lower extremity edema Physical therapy evaluate and treat 09/03 Dopplers duplex bilateral lower extremities-no evidence of DVT Prophylaxis -GI -pantoprazole -DVT - DC'ed heparin drip per cardio. Started lovenox sq per DVT ppx protocol. Patient's son requesting no SCDs per records. Physical deconditioning: PT/OT consult Discharge Planning: d/w the patient's son regarding rehab and HHC; the son declined both and he wants to take him home upon discharge. dc planning; within the next 24-48 hrs if stable and cleared by cardiology and nephrology. _ (1) Chronic kidney disease Qualifiers: Chronic kidney disease stage: (2) Diabetes mellitus Qualifiers: Diabetes mellitus type: type 2 Diabetes mellitus software consultant insulin use: unspecified group home insulin use status Diabetes mellitus complication status : with unspecified complications Diabetes mellitus complication detail: Diabetic retinopathy severity: Proliferative retinopathy type: Diabetes mellitus macular edema: Laterality: Chronic kidney disease stage: Qualified Code(s): E11.8 - Type 2 diabetes mellitus with unspecified complications (3) Hypothyroidism Qualifiers: Hypothyroidism type: unspecified Qualified Code(s): E03.9 - Hypothyroidism, unspecified
--- NOTE | 2018-09-08 16:49 | P.PNCA ---
Subjective Interval history: No events overnight Breathing well, no chest pain Medications and Allergies Active Medications: Active Medications Acetaminophen (Tylenol) 650 mg PO Q6H PRN PRN Reason: FEVER Last Admin: 09/03/18 00:11 Dose: 650 mg Albuterol (Albuterol Neb (Prn)) 2.5 mg NEB Q2HR NEB PRN PRN Reason: SHORTNESS OF BREATH/WHEEZING Artificial Tears (Tears Naturale Opth Drops) 1 drop EACH EYE Q8H [facility] Last Admin: 09/08/18 10:29 Dose: Not Given Atorvastatin Calcium (Lipitor) 10 mg PO HS [facility] Last Admin: 09/07/18 22:24 Dose: 10 mg Bisacodyl (Dulcolax Supp) 10 mg RECTAL DAILY PRN PRN Reason: SEVERE CONSITIPATION Carvedilol (Coreg) 6.25 mg PO BID [facility] Last Admin: 09/08/18 10:28 Dose: 6.25 mg Chlorhexidine Gluconate (Peridex 0.12% Oral Kit) 15 ml OROPHARYNG BID@0800, 2000 [facility] Last Admin: 09/08/18 10:28 Dose: Not Given Dextrose (D50w Vial) 50 ml IV.PUSH UNSCH PRN PRN Reason: PER HYPOGLYCEMIA PROTOCOL Enoxaparin Sodium (Lovenox Inj) 30 mg SQ DAILY [facility] Last Admin: 09/08/18 10:28 Dose: 30 mg Fentanyl Citrate (Fentanyl Inj) 50 mcg IV.PUSH Q1H PRN PRN Reason: PAIN SCALE 1 TO 10 Furosemide (Lasix) 40 mg PO BID@0900,1800 [facility] Last Admin: 09/08/18 10:28 Dose: 40 mg Glucagon (Glucagon Inj) 1 mg OTHER PRN PRN PRN Reason: for Hypoglycemia Protocol Nitroglycerin/Dextrose (Nitroglycerin Drip Premix) 50 mg in 250 mls @ 1.5 mls/ hr IV.CONT TITRATE PRN; Protocol PRN Reason: Per Protocol Last Titration: 09/03/18 06:20 Dose: Infused Insulin Aspart (Novolog Insulin Correctional Sugar Inj) 0 unit SQ Q6HR [facility]; Protocol Last Admin: 09/08/18 13:09 Dose: 4 unit Lactulose (Lactulose Liq) 30 ml PO DAILY PRN PRN Reason: SEVERE CONSITIPATION Levothyroxine Sodium (Synthroid) 88 mcg PO DAILY@0600 [facility] Last Admin: 09/08/18 06:31 Dose: 88 mcg Miscellaneous Medication () 1 each OROPHARYNG 0000,0400,1200,1600 [facility] Last Admin: 09/08/18 13:07 Dose: Not Given Ondansetron HCl (Zofran Inj) 4 mg IV.PUSH Q6H PRN PRN Reason: NAUSEA OR VOMITING Promethazine HCl (Phenergan Inj) 25 mg IV.CENTRAL Q6H PRN PRN Reason: BREAKTHROUGH NAUSEA Senna/Docusate Sodium (Tahmina-Colace) 1 tab PO BID [facility] Last Admin: 09/08/18 10:28 Dose: 1 tab Sennosides (Senokot) 17.2 mg PO Q12H PRN PRN Reason: Moderate Constipation Sodium Chloride (Ns Flush) 2 ml IV.FLUSH BID [facility] Last Admin: 09/08/18 10:29 Dose: 2 ml Sodium Chloride (Ns Flush) 2 ml IV.FLUSH PRN PRN PRN Reason: FLUSH AFTER USING IV ACCESS Last Admin: 09/02/18 12:09 Dose: 2 ml Terbutaline Sulfate (Brethine Inj) 1 mg SQ UNSCH PRN PRN Reason: For Extravasation Allergies Allergy/AdvReac Type Severity Reaction Status Date / Time aspirin Allergy Severe Bleeding Verified 09/02/18 16:03 diclofenac Allergy Severe Hives Verified 09/02/18 07:58 etodolac Allergy Severe Hives Verified 09/02/18 07:58 flurbiprofen Allergy Severe Hives Verified 09/02/18 07:58 ibuprofen Allergy Severe Hives Verified 09/02/18 07:58 indomethacin Allergy Severe Hives Verified 09/02/18 07:58 ketoprofen Allergy Severe Hives Verified 09/02/18 07:58 ketorolac Allergy Severe Hives Verified 09/02/18 07:58 naproxen Allergy Severe Hives Verified 09/02/18 07:58 NSAIDS (Non-Steroidal Allergy Severe Bleeding Verified 09/02/18 16:03 Anti-Inflamma oxaprozin Allergy Severe Hives Verified 09/02/18 07:58 Home Medications Medication Instructions Recorded Confirmed Type amlodipine 5 mg PO DAILY 09/02/18 09/02/18 History carvedilol 3.125 mg PO BID 09/02/18 09/02/18 History furosemide [Lasix] 40 mg PO BID 09/02/18 09/02/18 History glipizide 5 mg PO DAILY 09/02/18 09/02/18 History levothyroxine [Synthroid] 88 mcg PO DAILY 09/02/18 09/02/18 History potassium chloride 10 meq PO DAILY 09/02/18 09/02/18 History Physical Exam Vital signs: Vital Signs 09/07/18 20:00 09/07/18 21:30 09/08/18 00:00 Temperature 97.9 F 97.7 F Pulse Rate 71 82 Respiratory Rate 18 20 Blood Pressure 141/66 H 127/61 Pulse Oximetry 95 98 96 09/08/18 04:00 09/08/18 08:00 09/08/18 12:00 Temperature 97.6 F 98.1 F 97.7 F Pulse Rate 77 67 63 Respiratory Rate 20 16 14 Blood Pressure 151/70 H 142/65 H 139/64 Pulse Oximetry 96 95 95 Intake & Output 09/07/18 09/08/18 09/08/18 18:59 06:59 18:59 Intake Total 720 / 720 0 / 0 Output Total 1100 / 1100 750 / 750 400 / 400 Balance -380 / -380 -750 / -750 -400 / -400 Intake: Oral 720 / 720 0 / 0 Output: Urine 1100 / 1100 750 / 750 400 / 400 Other: Date of Last Bowel Movement 09/07/18 09/07/18 # Bowel Movements 2 0 Narrative: GENERAL: Very pleasant, resting in bed in no acute distress. SKIN: Warm and dry. ENT: Mucous membranes pink and moist. CARDIOVASCULAR: Regular rate and rhythm. S1, S2. RESPIRATORY: Decreased breath sounds. No respiratory distress. On 2 L nasal cannula. GASTROINTESTINAL: Abdomen soft, non-tender, nondistended. MUSCULOSKELETAL: No edema. NEUROLOGICAL: Alert. - Urinary Catheter Management Indwelling Urethral Catheter Cath placed during this visit: yes, but has since been removed by the nurse Reason for continuing: Decision to DC catheter Insertion date: 09/02/18 Insertion time: 06:40 Removal date: 09/02/18 Removal time: 18:00 Results 09/08/18 05:07 09/08/18 05:01 CBC 09/06/18 09/07/18 09/08/18 Range/Units 16:00 05:13 05:07 WBC 3.2 L 3.5 L 4.0 (4.0-11.0) th/mm3 RBC 4.09 L 3.80 L 3.91 L (4.50-5.90) mil/mm3 Hgb 11.7 L 11.0 L 11.2 L (13.0-17.0) gm/dL Hct 34.9 L 32.3 L 33.0 L (39.0-51.0) % Plt Count 113 L 119 L 126 L (150-450) th/mm3 Neut # (Auto) 2.0 2.0 2.3 (1.8-7.7) th/mm3 Lymph # (Auto) 0.7 L 0.9 L 1.0 (1.0-4.8) th/mm3 [place] # (Auto) 0.3 0.4 0.4 (0.0-0.9) th/mm3 Eos # (Auto) 0.2 0.2 0.3 (0.0-0.4) th/mm3 Baso # (Auto) 0.0 0.0 0.0 (0.0-0.2) th/mm3 Comprehensive Metabolic Panel 09/06/18 09/07/18 09/08/18 Range/Units 16:00 05:13 05:01 Sodium 140 139 140 (136-145) meq/L Potassium 3.5 3.3 L 3.6 (3.5-5.1) meq/L Chloride 101 100 101 (98-107) meq/L Carbon Dioxide 34.2 H 33.8 H 33.4 H (21.0-32.0) meq/L BUN 36 H 40 H 40 H (7-18) mg/dL Creatinine 2.43 H 2.52 H 2.32 H (0.60-1.30) mg/dL Calcium 8.2 L 8.1 L 8.1 L (8.5-10.1) mg/dL Intake and Output 09/08/18 09/08/18 09/08/18 06:59 14:59 22:59 Intake Total 0 / 0 Output Total 750 / 750 400 / 400 Balance -750 / -750 -400 / -400 Intake: Oral 0 / 0 Output: Urine 750 / 750 400 / 400 Other: Date of Last Bowel Movement 09/07/18 # Bowel Movements 0 Assessment and Plan - Assessment (1) NICM (nonischemic cardiomyopathy) Code(s): I42.8 - Other cardiomyopathies Status: Acute Plan: Office chart notes non-ischemic cardiomyopathy; ef last year not as low as seen here though; continue medical mgt; on bb; bushra/arb held for now due to renal failure/low bp's (2) Elevated troponin Code(s): R74.8 - Abnormal levels of other serum enzymes Status: Acute Plan: likely due to chf/ckd; known non-ischemic cardiomyopathy (3) Acute on chronic systolic (congestive) heart failure Code(s): I50.23 - Acute on chronic systolic (congestive) heart failure Status : Acute Plan: on IV lasix, diuresing (4) Respiratory failure requiring intubation Code(s): J96.90 - Respiratory failure, unspecified, unspecified whether with hypoxia or hypercapnia Status: Acute (5) CHF (congestive heart failure) Code(s): I50.9 - Heart failure, unspecified Status: Acute - Plan 1) Pulmonary edema Due to 's illness, patient admits to not taking his meds as he should Fluid overload state Diuresed well Appears compensated Lasix PO 2) Known NICM EF 20-25% Con't BB No BUSHRA-I/Entresto/ARB due to JESSICA on CKD 3) Acute respiratory distress requiring intubation s/p extubation 4) Elevated troponin Most likely Type 2 in the setting of CHF/CKD No plan for ischemic work up Heparin drip stopped 5) HTN Blood pressure better on current dose of Coreg Unable to place on BUSHRA-I/Entresto/ARB due to JESSICA on CKD (5) CHF (congestive heart failure) Qualifiers: Heart failure type: unspecified Heart failure chronicity: unspecified Qualified Code(s): I50.9 - Heart failure, unspecified
--- NOTE | 2018-09-08 20:16 | P.PNNP ---
Subjective Interval history: tired, no acute events Physical Exam Vital signs: Vital Signs 09/07/18 21:30 09/08/18 00:00 09/08/18 04:00 Temperature 97.7 F 97.6 F Pulse Rate 82 77 Respiratory Rate 20 20 Blood Pressure 127/61 151/70 H Pulse Oximetry 98 96 96 09/08/18 08:00 09/08/18 12:00 09/08/18 16:00 Temperature 98.1 F 97.7 F 97.7 F Pulse Rate 67 63 62 Respiratory Rate 16 14 13 Blood Pressure 142/65 H 139/64 158/73 H Pulse Oximetry 95 95 96 Intake & Output 09/08/18 09/08/18 09/09/18 06:59 18:59 06:59 Intake Total 0 / 0 Output Total 750 / 750 400 / 400 Balance -750 / -750 -400 / -400 Intake: Oral 0 / 0 Output: Urine 750 / 750 400 / 400 Other: Date of Last Bowel Movement 09/07/18 09/07/18 # Bowel Movements 0 - Constitutional no acute distress - Routine HEENT Exam Head: Present: normocephalic Eye: Present: EOMI ENT: Present: mucous membranes moist - Routine Neck Exam Present: supple - Routine Respiratory Exam Present: decreased breath sounds - Routine Cardiovascular Exam Present: RRR - Routine Abdominal Exam Present: soft - Routine Skin Exam Present: intact - Routine Neurological Exam Present: alert - Detailed Neurological Exam: Coma Scale Eye Opening: Spontaneous - Routine Psychiatric Exam Present: normal affect - Urinary Catheter Management Indwelling Urethral Catheter Cath placed during this visit: yes, but has since been removed by the nurse Reason for continuing: Decision to DC catheter Insertion date: 09/02/18 Insertion time: 06:40 Removal date: 09/02/18 Removal time: 18:00 Assessment and Plan - Assessment (1) Chronic kidney disease Code(s): N18.9 - Chronic kidney disease, unspecified Status: Acute Plan: Patient with chronic kidney disease and JESSICA. Creatinine 2.5 -> 2.3 1.8 L UOP/24 hours On lasix 40mg Po BID - continue for now Avoid Nephrotoxins. Monitor renal function, UOP. (2) Respiratory failure requiring intubation Code(s): J96.90 - Respiratory failure, unspecified, unspecified whether with hypoxia or hypercapnia Status: Acute Plan: He had fluid overload and resp. failure. Now extubated. (3) Hypernatremia Code(s): E87.0 - Hyperosmolality and hypernatremia Status: Acute Plan: Resolved. (4) Diabetes mellitus Code(s): E11.9 - Type 2 diabetes mellitus without complications Status: Chronic Qualifiers: Diabetes mellitus type: type 2 Diabetes mellitus correction insulin use: unspecified termination clerk insulin use status Diabetes mellitus complication status : with unspecified complications Qualified Code(s): E11.8 - Type 2 diabetes mellitus with unspecified complications Plan: Maintain blood glucose between 140 and 180 while hospitalized. (5) Hypothyroidism Code(s): E03.9 - Hypothyroidism, unspecified Status: Chronic Qualifiers: Hypothyroidism type: unspecified Qualified Code(s): E03.9 - Hypothyroidism , unspecified Plan: Patient on Synthroid. - Plan .
[2018-09-09] MEDS: Oral Hygiene Kit OROPHARYNG SCH ×5 (01:31→23:02)
[2018-09-09] MEDS: Insulin NovoLOG Aspart Correctional Sugar Inj SQ SCH ×4 (01:32→17:34)
[2018-09-09] MEDS: Artificial Tears Opth Drops 15 ML Bottle EACH EYE SCH ×3 (01:36→17:27)
[2018-09-09] MEDS: Levothyroxine 88 MCG Tablet PO SCH (05:42)
[2018-09-09] MEDS: Chlorhexidine 0.12% Oral Kit 15 ML UDC OROPHARYNG SCH ×2 (07:50→19:30)
[2018-09-09] MEDS: Enoxaparin Inj 30 MG/0.3 ML Syringe SQ SCH (08:26)
[2018-09-09] MEDS: Carvedilol 6.25 MG Tablet PO SCH (08:26)
[2018-09-09] MEDS: Furosemide 40 MG Tablet PO SCH ×2 (08:26→17:28)
[2018-09-09] MEDS: Senna/Docusate Sodium 8.6/50 MG Tablet PO SCH ×2 (08:26→21:00)
--- NOTE | 2018-09-09 09:14 | P.PNIM ---
Subjective Interval history: f/u; CHF in no acute distress. looks comfortable-off oxygen. denies pain with no fever. Physical Exam Vital signs: Last Vital Signs Temp 97.3 F L 09/09/18 08:00 Pulse 75 09/09/18 08:00 Resp 17 09/09/18 08:00 BP 164/77 H 09/09/18 08:00 Pulse Ox 91 L 09/09/18 08:00 Intake & Output 09/07/18 09/08/18 09/09/18 09/10/18 06:59 06:59 06:59 06:59 Intake Total 960 / 960 720 / 720 720 / 720 Output Total 1650 / 1650 1850 / 1850 1600 / 1600 Balance -690 / -690 -1130 / -1130 -880 / -880 Weight 99.2 kg 99.2 kg Constitutional no acute distress Routine Respiratory Exam Present CTA bilaterally Routine Cardiovascular Exam Present RRR Routine Abdominal Exam Present soft Routine Extremities Exam Comments: mild bilateral pedal edema. Routine Neurological Exam Present alert and oriented X3 Urinary Catheter Management Indwelling Urethral Catheter: Cath placed during this visit: yes, but has since been removed by the nurse Insertion date: 09/02/18 Insertion time: 06:40 Removal date: 09/02/18 Removal time: 18:00 Results Labs CBC & Chem 7: 09/08/18 05:07 09/08/18 05:01 Assessment and Plan (1) Chronic kidney disease: Code(s): N18.9 - Chronic kidney disease, unspecified Status: Acute (2) Respiratory failure requiring intubation: Code(s): J96.90 - Respiratory failure, unspecified, unspecified whether with hypoxia or hypercapnia Status: Acute (3) Hypernatremia: Code(s): E87.0 - Hyperosmolality and hypernatremia Status: Acute (4) Diabetes mellitus: Code(s): E11.9 - Type 2 diabetes mellitus without complications Status: Chronic (5) Hypothyroidism: Code(s): E03.9 - Hypothyroidism, unspecified Status: Chronic Plan A/P History of congestive heart failure nonischemic cardiomyopathy with low EF 20% History of essential hypertension Elevated troponin, likely from demand ischemia from CHF and decreased renal clearance Elevated BNP Patient's auto winder is Dr. Mireles. F/U cardiology recommendation Initial troponin 0.15->.26, now down trending 0.19. with normal sinus rhythm. ST elevation in the septal leads. Serial troponins downward trend, likely elevated from demand ischemia from chf / decreased renal clearance 09/03 2D echocardiogram -EF 20-25% with global hypokinesis moderate MR, trace TR Did not receive aspirin due to anti-inflammatory allergies/multiple. Continue low-dose beta-shalini. No BUSHRA inhibitor secondary to acute kidney injury. Continue atorvastatin 10 mg daily Heparin drip was dc'ed. continue Coreg. Patient is on furosemide 40 mg p.o. twice daily at home; currently on the same dosage per nephrology. Dr Ezekiel naidu Acute hypoxemic hypercapnic respiratory failure secondary to flash pulmonary edema, resolving , was intubated and successfully extubated , currently satting well on [place] Albuterol/ipratropium aerosols every 4 hours with albuterol every 2 as needed dyspnea Extubated 09/04 Elevated total protein Formal swallow evaluation performed-initiate carb controlled, cardiac diet Docusate serum/senna 1 tablet twice daily for bowel regimen Parikh catheter has been placed for accurate I's and O's in a critical patient on diuretics Diabetes mellitus Acute hyperglycemia Hypothyroidism Sliding scale insulin aspart insulin with Accu-Cheks to maintain euglycemia/ medium protocol Continue levothyroxine 88 mcg daily Acute on chronic kidney injury Renal ultrasound-chronic medical disease Monitor urine output- 250cc overnight in 12 hours Accurate I's and O's Follow-up creatinine Avoid nephrotoxic medications Nephrology consulted, appreciate recommendations Thrombocytopenia Monitor CBC daily. Follow trends. No indication for transfusion of blood products this time. Acute hypernatremia- resolved Monitor BMP Replace electrolytes as clinically indicated Currently on normal saline at 30 cc an hour MSK: Bilateral lower extremity edema Physical therapy evaluate and treat 09/03 Dopplers duplex bilateral lower extremities-no evidence of DVT Prophylaxis -GI -pantoprazole -DVT - DC'ed heparin drip per cardio. Started lovenox sq per DVT ppx protocol. Patient's son requesting no SCDs per records. Physical deconditioning: PT/OT consult Discharge Planning: d/w the patient's son regarding rehab and HHC; the son declined both and he wants to take him home upon discharge. dc planning; within the next 24 hrs if stable and cleared by cardiology and nephrology. _ (1) Chronic kidney disease Qualifiers: Chronic kidney disease stage: (2) Diabetes mellitus Qualifiers: Diabetes mellitus type: type 2 Diabetes mellitus extermination supervisor insulin use: unspecified extermination supervisor insulin use status Diabetes mellitus complication status : with unspecified complications Diabetes mellitus complication detail: Diabetic retinopathy severity: Proliferative retinopathy type: Diabetes mellitus macular edema: Laterality: Chronic kidney disease stage: Qualified Code(s): E11.8 - Type 2 diabetes mellitus with unspecified complications (3) Hypothyroidism Qualifiers: Hypothyroidism type: unspecified Qualified Code(s): E03.9 - Hypothyroidism, unspecified
[2018-09-09 10:21] LABS: Baso % (Auto) 0.3 % (0.0-2.0); Eos # (Auto) 0.2 th/mm3 (0.0-0.4); Eos % (Auto) 5.2 % (0.0-4.0); Hematocrit 35.5 % (39.0-51.0); Hemoglobin 12.1 gm/dL (13.0-17.0); Lymph # (Auto) 1.2 th/mm3 (1.0-4.8); Lymph % (Auto) 26.6 % (9.0-44.0); Mean Corpuscular Hemoglobin 29.1 pg (27.0-34.0); Mean Corpuscular Volume 85.6 fL (80.0-100.0); Mean Platelet Volume 8.3 fL (7.0-11.0); Mono # (Auto) 0.5 th/mm3 (0.0-0.9); Mono % (Auto) 11.1 % (0.0-8.0); Neut # (Auto) 2.6 th/mm3 (1.8-7.7); Neut % (Auto) 56.8 % (16.0-70.0); Platelet Count 135 th/mm3 (150-450); Red Blood Count 4.14 mil/mm3 (4.50-5.90); Red Cell Distribution Width 16.1 % (11.6-17.2); White Blood Count 4.5 th/mm3 (4.0-11.0)
[2018-09-09 10:43] LABS: Albumin 2.8 g/dL (3.4-5.0); Anion Gap 7 meq/L (5-15); Aspartate Aminotransferase 31 U/L (15-37); Blood Urea Nitrogen 37 mg/dL (7-18); Calcium 8.8 mg/dL (8.5-10.1); Carbon Dioxide 31.2 meq/L (21.0-32.0); Chloride 101 meq/L (98-107); Glomerular Filtration Rate 33 mL/min (>89); Glucose,Random 164 mg/dL (74-106); Sodium 139 meq/L (136-145)
[2018-09-09 10:46] LABS: Alanine Aminotransferase 28 U/L (12-78); Alkaline Phosphatase 61 U/L (45-117); Total Protein 7.1 g/dL (6.4-8.2)
--- NOTE | 2018-09-09 15:06 | P.PNCA ---
Subjective Interval history: Doing well, no complaints Blood pressure still elevated Medications and Allergies Active Medications: Active Medications Acetaminophen (Tylenol) 650 mg PO Q6H PRN PRN Reason: FEVER Last Admin: 09/03/18 00:11 Dose: 650 mg Albuterol (Albuterol Neb (Prn)) 2.5 mg NEB Q2HR NEB PRN PRN Reason: SHORTNESS OF BREATH/WHEEZING Artificial Tears (Tears Naturale Opth Drops) 1 drop EACH EYE Q8H [facility] Last Admin: 09/09/18 08:26 Dose: 1 drop Atorvastatin Calcium (Lipitor) 10 mg PO HS [facility] Last Admin: 09/08/18 23:30 Dose: 10 mg Bisacodyl (Dulcolax Supp) 10 mg RECTAL DAILY PRN PRN Reason: SEVERE CONSITIPATION Carvedilol (Coreg) 6.25 mg PO BID [facility] Last Admin: 09/09/18 08:26 Dose: 6.25 mg Chlorhexidine Gluconate (Peridex 0.12% Oral Kit) 15 ml OROPHARYNG BID@0800, 2000 [facility] Last Admin: 09/09/18 07:50 Dose: Not Given Dextrose (D50w Vial) 50 ml IV.PUSH UNSCH PRN PRN Reason: PER HYPOGLYCEMIA PROTOCOL Enoxaparin Sodium (Lovenox Inj) 30 mg SQ DAILY [facility] Last Admin: 09/09/18 08:26 Dose: 30 mg Fentanyl Citrate (Fentanyl Inj) 50 mcg IV.PUSH Q1H PRN PRN Reason: PAIN SCALE 1 TO 10 Furosemide (Lasix) 40 mg PO BID@0900,1800 [facility] Last Admin: 09/09/18 08:26 Dose: 40 mg Glucagon (Glucagon Inj) 1 mg OTHER PRN PRN PRN Reason: for Hypoglycemia Protocol Nitroglycerin/Dextrose (Nitroglycerin Drip Premix) 50 mg in 250 mls @ 1.5 mls/ hr IV.CONT TITRATE PRN; Protocol PRN Reason: Per Protocol Last Titration: 09/03/18 06:20 Dose: Infused Insulin Aspart (Novolog Insulin Correctional Sugar Inj) 0 unit SQ Q6HR [facility]; Protocol Last Admin: 09/09/18 12:55 Dose: 10 unit Lactulose (Lactulose Liq) 30 ml PO DAILY PRN PRN Reason: SEVERE CONSITIPATION Levothyroxine Sodium (Synthroid) 88 mcg PO DAILY@0600 [facility] Last Admin: 09/09/18 05:42 Dose: 88 mcg Miscellaneous Medication () 1 each OROPHARYNG 0000,0400,1200,1600 [facility] Last Admin: 09/09/18 15:01 Dose: Not Given Ondansetron HCl (Zofran Inj) 4 mg IV.PUSH Q6H PRN PRN Reason: NAUSEA OR VOMITING Promethazine HCl (Phenergan Inj) 25 mg IV.CENTRAL Q6H PRN PRN Reason: BREAKTHROUGH NAUSEA Senna/Docusate Sodium (Tahmina-Colace) 1 tab PO BID [facility] Last Admin: 09/09/18 08:26 Dose: 1 tab Sennosides (Senokot) 17.2 mg PO Q12H PRN PRN Reason: Moderate Constipation Sodium Chloride (Ns Flush) 2 ml IV.FLUSH BID [facility] Last Admin: 09/09/18 08:26 Dose: 2 ml Sodium Chloride (Ns Flush) 2 ml IV.FLUSH PRN PRN PRN Reason: FLUSH AFTER USING IV ACCESS Last Admin: 09/02/18 12:09 Dose: 2 ml Terbutaline Sulfate (Brethine Inj) 1 mg SQ UNSCH PRN PRN Reason: For Extravasation Allergies Allergy/AdvReac Type Severity Reaction Status Date / Time aspirin Allergy Severe Bleeding Verified 09/02/18 16:03 diclofenac Allergy Severe Hives Verified 09/02/18 07:58 etodolac Allergy Severe Hives Verified 09/02/18 07:58 flurbiprofen Allergy Severe Hives Verified 09/02/18 07:58 ibuprofen Allergy Severe Hives Verified 09/02/18 07:58 indomethacin Allergy Severe Hives Verified 09/02/18 07:58 ketoprofen Allergy Severe Hives Verified 09/02/18 07:58 ketorolac Allergy Severe Hives Verified 09/02/18 07:58 naproxen Allergy Severe Hives Verified 09/02/18 07:58 NSAIDS (Non-Steroidal Allergy Severe Bleeding Verified 09/02/18 16:03 Anti-Inflamma oxaprozin Allergy Severe Hives Verified 09/02/18 07:58 Home Medications Medication Instructions Recorded Confirmed Type amlodipine 5 mg PO DAILY 09/02/18 09/02/18 History carvedilol 3.125 mg PO BID 09/02/18 09/02/18 History furosemide [Lasix] 40 mg PO BID 09/02/18 09/02/18 History glipizide 5 mg PO DAILY 09/02/18 09/02/18 History levothyroxine [Synthroid] 88 mcg PO DAILY 09/02/18 09/02/18 History potassium chloride 10 meq PO DAILY 09/02/18 09/02/18 History Physical Exam Vital signs: Vital Signs 09/08/18 16:00 09/08/18 20:00 09/09/18 00:00 Temperature 97.7 F 97.9 F 97.9 F Pulse Rate 62 63 75 Respiratory Rate 13 18 Blood Pressure 158/73 H 172/79 H 172/79 H Pulse Oximetry 96 97 97 09/09/18 04:00 09/09/18 08:00 09/09/18 12:00 Temperature 97.2 F L 97.3 F L 97.3 F L Pulse Rate 79 59 L 63 Respiratory Rate 18 17 17 Blood Pressure 145/67 H 164/77 H 171/76 H Pulse Oximetry 92 L 91 L 94 L 09/09/18 13:02 Temperature Pulse Rate Respiratory Rate Blood Pressure Pulse Oximetry 94 L Intake & Output 09/08/18 09/09/18 09/09/18 18:59 06:59 18:59 Intake Total 720 / 720 Output Total 400 / 400 1200 / 1200 Balance -400 / -400 -480 / -480 Weight 99.2 kg Intake: Oral 720 / 720 Output: Urine 400 / 400 1200 / 1200 Other: # Voids 5 Date of Last Bowel Movement 09/07/18 09/08/18 Narrative: GENERAL: Very pleasant, resting in bed in no acute distress. SKIN: Warm and dry. ENT: Mucous membranes pink and moist. CARDIOVASCULAR: Regular rate and rhythm. S1, S2. RESPIRATORY: Decreased breath sounds. No respiratory distress. On 2 L nasal cannula. GASTROINTESTINAL: Abdomen soft, non-tender, nondistended. MUSCULOSKELETAL: No edema. NEUROLOGICAL: Alert. - Urinary Catheter Management Indwelling Urethral Catheter Cath placed during this visit: yes, but has since been removed by the nurse Reason for continuing: Decision to DC catheter Insertion date: 09/02/18 Insertion time: 06:40 Removal date: 09/02/18 Removal time: 18:00 Results 09/09/18 09:33 09/09/18 09:33 Cardiac Enzymes 09/09/18 Range/Units 09:33 AST 31 (15-37) U/L CBC 09/08/18 09/09/18 Range/Units 05:07 09:33 WBC 4.0 4.5 (4.0-11.0) th/mm3 RBC 3.91 L 4.14 L (4.50-5.90) mil/mm3 Hgb 11.2 L 12.1 L (13.0-17.0) gm/dL Hct 33.0 L 35.5 L (39.0-51.0) % Plt Count 126 L 135 L (150-450) th/mm3 Neut # (Auto) 2.3 2.6 (1.8-7.7) th/mm3 Lymph # (Auto) 1.0 1.2 (1.0-4.8) th/mm3 [place] # (Auto) 0.4 0.5 (0.0-0.9) th/mm3 Eos # (Auto) 0.3 0.2 (0.0-0.4) th/mm3 Baso # (Auto) 0.0 0.0 (0.0-0.2) th/mm3 Comprehensive Metabolic Panel 09/08/18 09/09/18 Range/Units 05:01 09:33 Sodium 140 139 (136-145) meq/L Potassium 3.6 4.0 (3.5-5.1) meq/L Chloride 101 101 (98-107) meq/L Carbon Dioxide 33.4 H 31.2 (21.0-32.0) meq/L BUN 40 H 37 H (7-18) mg/dL Creatinine 2.32 H 2.26 H (0.60-1.30) mg/dL Calcium 8.1 L 8.8 (8.5-10.1) mg/dL AST 31 (15-37) U/L ALT 28 (12-78) U/L Alkaline Phosphatase 61 (45-117) U/L Total Protein 7.1 D (6.4-8.2) g/dL Albumin 2.8 L (3.4-5.0) g/dL Intake and Output 09/09/18 09/09/18 09/09/18 06:59 14:59 22:59 Intake Total 720 / 720 Output Total 1200 / 1200 Balance -480 / -480 Intake: Oral 720 / 720 Output: Urine 1200 / 1200 Other: # Voids 5 Weight 99.2 kg Assessment and Plan - Assessment (1) NICM (nonischemic cardiomyopathy) Code(s): I42.8 - Other cardiomyopathies Status: Acute Plan: Office chart notes non-ischemic cardiomyopathy; ef last year not as low as seen here though; continue medical mgt; on bb; bushra/arb held for now due to renal failure/low bp's (2) Elevated troponin Code(s): R74.8 - Abnormal levels of other serum enzymes Status: Acute Plan: likely due to chf/ckd; known non-ischemic cardiomyopathy (3) Acute on chronic systolic (congestive) heart failure Code(s): I50.23 - Acute on chronic systolic (congestive) heart failure Status : Acute Plan: on IV lasix, diuresing (4) Respiratory failure requiring intubation Code(s): J96.90 - Respiratory failure, unspecified, unspecified whether with hypoxia or hypercapnia Status: Acute (5) CHF (congestive heart failure) Code(s): I50.9 - Heart failure, unspecified Status: Acute - Plan 1) Pulmonary edema Due to 's illness, patient admits to not taking his meds as he should Fluid overload state Diuresed well Appears compensated Lasix PO 2) Known NICM EF 20-25% Con't BB No BUSHRA-I/Entresto/ARB due to JESSICA on CKD 3) Acute respiratory distress requiring intubation s/p extubation 4) Elevated troponin Most likely Type 2 in the setting of CHF/CKD No plan for ischemic work up Heparin drip stopped 5) HTN Still elevated 09/09 increase Coreg If still having problems, may benefit from Isosorbide/hydralazine combination, although difficult with patient compliance due to frequent dosing Unable to place on BUSHRA-I/Entresto/ARB due to JESSICA on CKD (5) CHF (congestive heart failure) Qualifiers: Heart failure type: unspecified Heart failure chronicity: unspecified Qualified Code(s): I50.9 - Heart failure, unspecified
--- NOTE | 2018-09-09 18:17 | P.PNNP ---
Subjective Interval history: No acute complaints Physical Exam Vital signs: Vital Signs 09/08/18 20:00 09/09/18 00:00 09/09/18 04:00 Temperature 97.9 F 97.9 F 97.2 F L Pulse Rate 63 75 79 Respiratory Rate 18 18 18 Blood Pressure 172/79 H 172/79 H 145/67 H Pulse Oximetry 97 97 92 L 09/09/18 08:00 09/09/18 12:00 09/09/18 13:02 Temperature 97.3 F L 97.3 F L Pulse Rate 59 L 63 Respiratory Rate 17 17 Blood Pressure 164/77 H 171/76 H Pulse Oximetry 91 L 94 L 94 L 09/09/18 16:00 09/09/18 17:37 Temperature 97.7 F Pulse Rate 53 L Respiratory Rate 17 Blood Pressure 166/76 H Pulse Oximetry 98 94 L Intake & Output 09/08/18 09/09/18 09/09/18 18:59 06:59 18:59 Intake Total 720 / 720 Output Total 400 / 400 1200 / 1200 Balance -400 / -400 -480 / -480 Weight 99.2 kg Intake: Oral 720 / 720 Output: Urine 400 / 400 1200 / 1200 Other: # Voids 5 Date of Last Bowel Movement 09/07/18 09/08/18 - Constitutional no acute distress - Routine HEENT Exam Head: Present: normocephalic Eye: Present: EOMI ENT: Present: mucous membranes moist - Routine Neck Exam Present: supple - Routine Respiratory Exam Present: decreased breath sounds - Routine Cardiovascular Exam Present: RRR - Routine Abdominal Exam Present: soft - Routine Skin Exam Present: intact - Urinary Catheter Management Indwelling Urethral Catheter Cath placed during this visit: yes, but has since been removed by the nurse Reason for continuing: Decision to DC catheter Insertion date: 09/02/18 Insertion time: 06:40 Removal date: 09/02/18 Removal time: 18:00 Assessment and Plan - Assessment (1) Chronic kidney disease Code(s): N18.9 - Chronic kidney disease, unspecified Status: Acute Plan: Patient with chronic kidney disease and JESSICA. Creatinine 2.5 -> 2.3 -> 2.2 70cc UOP/24 hours On lasix 40mg Po BID - continue for now Avoid Nephrotoxins. Monitor renal function, UOP. If renal function stable tomorrow, may consider for D/C from renal standpoint (2) Respiratory failure requiring intubation Code(s): J96.90 - Respiratory failure, unspecified, unspecified whether with hypoxia or hypercapnia Status: Acute Plan: He had fluid overload and resp. failure. Now extubated. (3) Hypernatremia Code(s): E87.0 - Hyperosmolality and hypernatremia Status: Acute Plan: Resolved. (4) Diabetes mellitus Code(s): E11.9 - Type 2 diabetes mellitus without complications Status: Chronic Qualifiers: Diabetes mellitus type: type 2 Diabetes mellitus manager long term care insulin use: unspecified manager long term care insulin use status Diabetes mellitus complication status : with unspecified complications Qualified Code(s): E11.8 - Type 2 diabetes mellitus with unspecified complications Plan: Maintain blood glucose between 140 and 180 while hospitalized. (5) Hypothyroidism Code(s): E03.9 - Hypothyroidism, unspecified Status: Chronic Qualifiers: Hypothyroidism type: unspecified Qualified Code(s): E03.9 - Hypothyroidism , unspecified Plan: Patient on Synthroid.
[2018-09-09] MEDS: Carvedilol 12.5 MG Tablet PO SCH (21:01)
[2018-09-10] MEDS: Insulin NovoLOG Aspart Correctional Sugar Inj SQ SCH ×3 (00:30→12:03)
[2018-09-10] MEDS: Artificial Tears Opth Drops 15 ML Bottle EACH EYE SCH ×2 (00:31→08:04)
[2018-09-10] MEDS: Oral Hygiene Kit OROPHARYNG SCH ×2 (03:12→12:04)
[2018-09-10] MEDS: Levothyroxine 88 MCG Tablet PO SCH (06:05)
[2018-09-10] MEDS: Chlorhexidine 0.12% Oral Kit 15 ML UDC OROPHARYNG SCH (07:14)
[2018-09-10] MEDS: Senna/Docusate Sodium 8.6/50 MG Tablet PO SCH (08:03)
[2018-09-10] MEDS: Carvedilol 12.5 MG Tablet PO SCH (08:03)
[2018-09-10] MEDS: Furosemide 40 MG Tablet PO SCH (08:03)
[2018-09-10] MEDS: Enoxaparin Inj 30 MG/0.3 ML Syringe SQ SCH (08:04)
--- NOTE | 2018-09-10 08:19 | P.PNIM ---
Subjective Interval history: in no acute distress. denies chest pain or sob. stable off oxygen. no fever. Physical Exam Vital signs: Last Vital Signs Temp 97.8 F 09/10/18 04:00 Pulse 61 09/10/18 04:00 Resp 18 09/10/18 04:00 BP 133/60 09/10/18 04:00 Pulse Ox 94 L 09/10/18 04:00 Intake & Output 09/08/18 09/09/18 09/10/18 09/11/18 06:59 06:59 06:59 06:59 Intake Total 720 / 720 720 / 720 Output Total 1850 / 1850 1600 / 1600 Balance -1130 / -1130 -880 / -880 Weight 99.2 kg 99.2 kg Constitutional no acute distress Routine Respiratory Exam Present CTA bilaterally Routine Cardiovascular Exam Present RRR Routine Abdominal Exam Present soft Routine Extremities Exam Comments: mild bilateral pedal edema. Routine Neurological Exam Present alert and oriented X3 Urinary Catheter Management Indwelling Urethral Catheter: Cath placed during this visit: yes, but has since been removed by the nurse Insertion date: 09/02/18 Insertion time: 06:40 Removal date: 09/02/18 Removal time: 18:00 Results Labs CBC & Chem 7: 09/09/18 09:33 09/09/18 09:33 Procedures Procedures: none. Assessment and Plan (1) Chronic kidney disease: Code(s): N18.9 - Chronic kidney disease, unspecified Status: Acute (2) Respiratory failure requiring intubation: Code(s): J96.90 - Respiratory failure, unspecified, unspecified whether with hypoxia or hypercapnia Status: Acute (3) Hypernatremia: Code(s): E87.0 - Hyperosmolality and hypernatremia Status: Acute (4) Diabetes mellitus: Code(s): E11.9 - Type 2 diabetes mellitus without complications Status: Chronic (5) Hypothyroidism: Code(s): E03.9 - Hypothyroidism, unspecified Status: Chronic Plan A/P History of congestive heart failure nonischemic cardiomyopathy with low EF 20% History of essential hypertension Elevated troponin, likely from demand ischemia from CHF and decreased renal clearance Elevated BNP Patient's heel scorer is Dr. Mireles. F/U cardiology recommendation Initial troponin 0.15->.26, now down trending 0.19. with normal sinus rhythm. ST elevation in the septal leads. Serial troponins downward trend, likely elevated from demand ischemia from chf / decreased renal clearance 09/03 2D echocardiogram -EF 20-25% with global hypokinesis moderate MR, trace TR Did not receive aspirin due to anti-inflammatory allergies/multiple. Continue low-dose beta-shalini. No BUSHRA inhibitor secondary to acute kidney injury. Continue atorvastatin 10 mg daily Heparin drip was dc'ed. continue Coreg. Patient is on furosemide 40 mg p.o. twice daily at home; currently on the same dosage per nephrology. Dr Ezekiel naidu Acute hypoxemic hypercapnic respiratory failure secondary to flash pulmonary edema, resolving , was intubated and successfully extubated . walk test today. Albuterol/ipratropium aerosols every 4 hours with albuterol every 2 as needed dyspnea Extubated 09/04 Elevated total protein Formal swallow evaluation performed-initiate carb controlled, cardiac diet Docusate serum/senna 1 tablet twice daily for bowel regimen Parikh catheter has been placed for accurate I's and O's in a critical patient on diuretics Diabetes mellitus Acute hyperglycemia Hypothyroidism Sliding scale insulin aspart insulin with Accu-Cheks to maintain euglycemia/ medium protocol Continue levothyroxine 88 mcg daily Acute on chronic kidney injury- improved. Renal ultrasound-chronic medical disease Monitor urine output- 250cc overnight in 12 hours Accurate I's and O's Follow-up creatinine Avoid nephrotoxic medications Nephrology consulted, appreciate recommendations Thrombocytopenia Monitor CBC daily. Follow trends. No indication for transfusion of blood products this time. Acute hypernatremia- resolved Monitor BMP Replace electrolytes as clinically indicated Currently on normal saline at 30 cc an hour MSK: Bilateral lower extremity edema Physical therapy evaluate and treat 09/03 Dopplers duplex bilateral lower extremities-no evidence of DVT Prophylaxis -GI -pantoprazole -DVT - DC'ed heparin drip per cardio. Started lovenox sq per DVT ppx protocol. Patient's son requesting no SCDs per records. Physical deconditioning: PT/OT consult Discharge Planning: previously d/w the patient's son regarding rehab and HHC; the son declined both and he wants to take him home upon discharge. dc planning; today if cleared by cardiology- pending walk test. see med list. f/u; pcp, cardiology and nephrology. d/w the patient. _ (1) Chronic kidney disease Qualifiers: Chronic kidney disease stage: (2) Diabetes mellitus Qualifiers: Diabetes mellitus type: type 2 Diabetes mellitus tavern operator insulin use: unspecified correction insulin use status Diabetes mellitus complication status : with unspecified complications Diabetes mellitus complication detail: Diabetic retinopathy severity: Proliferative retinopathy type: Diabetes mellitus macular edema: Laterality: Chronic kidney disease stage: Qualified Code(s): E11.8 - Type 2 diabetes mellitus with unspecified complications (3) Hypothyroidism Qualifiers: Hypothyroidism type: unspecified Qualified Code(s): E03.9 - Hypothyroidism, unspecified
--- NOTE | 2018-09-10 08:24 | P.DS ---
DS: Providers Date of admission: 09/02/18 08:10 Primary care physician: UNKNOWN Consults: 09/02/18 07:59 Consult to Cardiology Routine Consulting Provider: Michael Carrillo Does the patient have a Commercial Representative who follows them?: No Preferred Sales Agent Financial Report Service:: Rocael Vaca Reason for Consultation: Dr. Vaca notified in ED - STEMI alert. Requested consult to follow. Elevated trop Notified:: Service Spoke with:: Carlos Date Notified:: 09/02/18 Time Notified:: 09:24 Ordering Provider: XANDER 09/02/18 08:23 HUB Only Consult Order Routine Consulting Provider: Jose Garcia 09/03/18 07:41 Consult to Nephrology Routine Consulting Provider: Naresh Lopez Does the patient have a Sales Engineering Manager who follows them?: Yes Preferred Nephrology Mandarin Speaking Nanny:: Bud Lopez Reason for Consultation: elevated creatinine-JESSICA Notified:: Service Spoke with:: Tim Date Notified:: 09/03/18 Time Notified:: 07:45 Ordering Provider: MARIELOS 09/04/18 15:04 Consult to Hospitalist Routine Consulting Provider: Frankie Stevenson Reason for Consultation: Hypoxemic respiratory failure, pulmonary edema, intubated now extubated. Cardiology following Notified:: Service Spoke with:: Laura Date Notified:: 09/04/18 Time Notified:: 15:14 Comments:: Ordering Provider: MARIELOS Brief History from admission: This is an 88-year-old AA male. Date of admission 09/02/2018. Past medical history includes congestive heart failure unknown etiology, essential hypertension, diabetes mellitus, hypothyroidism and bilateral lower extremity edema. For the past 2 half weeks his 's been hospitalized and since questions whether he has been compliant with medications. Presented to [facility] with acute shortness of breath. A STEMI alert was called due to EKG changes in the septal leads. Troponin was 0.15. Patient was placed on BiPAP initially 15/500%. Blood gas revealed significant laboratory acidosis with a metabolic alkalosis component. PCO2 is greater than 100. Patient intubated after receiving 50 mg of propofol on and 2.5 mg of midazolam. Chest x-ray revealed flash pulmonary edema. Patient received nitroglycerin 0.4 mg x2 was started on nitroglycerin drip for hypertension. Patient received 80 mg total of furosemide. Right by the patient, patient blood pressure 50/30. Nitroglycerin was discontinued a central line was placed with an arterial line in place with sterile norepinephrine drip. DS: Diagnosis Discharge Diagnosis (1) Chronic kidney disease: Status: Acute (2) Respiratory failure requiring intubation: Status: Acute (3) Hypernatremia: Status: Acute (4) Diabetes mellitus: Status: Chronic (5) Hypothyroidism: Status: Chronic DS: Summary History of congestive heart failure nonischemic cardiomyopathy with low EF 20% History of essential hypertension Elevated troponin, likely from demand ischemia from CHF and decreased renal clearance Elevated BNP Patient's shipping helper is Dr. Mireles. F/U cardiology recommendation Initial troponin 0.15->.26, now down trended 0.19. with normal sinus rhythm. ST elevation in the septal leads. Serial troponins downward trend, likely elevated from demand ischemia from chf / decreased renal clearance 09/03 2D echocardiogram -EF 20-25% with global hypokinesis moderate MR, trace TR Did not receive aspirin due to anti-inflammatory allergies/multiple. Continue low-dose beta-shalini. No BUSHRA inhibitor secondary to acute kidney injury. Continue atorvastatin 10 mg daily Patient is on furosemide 40 mg p.o. twice daily at home; currently on the same dosage per nephrology. Acute hypoxemic hypercapnic respiratory failure secondary to flash pulmonary edema, resolving , was intubated and successfully extubated . Albuterol/ipratropium aerosols every 4 hours with albuterol every 2 as needed dyspnea Extubated 09/04 Elevated total protein Formal swallow evaluation performed-initiate carb controlled, cardiac diet Docusate serum/senna 1 tablet twice daily for bowel regimen Diabetes mellitus Hypothyroidism resume home oral hypoglycemics upon discharge. Continue levothyroxine 88 mcg daily Acute on chronic kidney injury- improved. Renal ultrasound-chronic medical disease Nephrology consulted, appreciate recommendations Thrombocytopenia Monitor CBC daily. Follow trends. No indication for transfusion of blood products this time. Acute hypernatremia- resolved Time Spent with Patient Total time spent providing and/or coordinating discharge services: Less than 30 minutes Exam Narrative Exam Narrative: in josi cute distress and resting comfortably. bilateral air entry present on lung exam. S1/S2 heard. abdomen is soft. mild bilateral pedal edema. Results Procedures completed during hospitalization: none. Labs on day of discharge: Labs from last 24 hours 09/10/18 09/10/18 09/09/18 05:36 00:27 17:33 WBC RBC Hgb Hct MCV MCH MCHC RDW Plt Count MPV Neut % (Auto) Lymph % (Auto) [place] % (Auto) Eos % (Auto) Baso % (Auto) Neut # (Auto) Lymph # (Auto) [place] # (Auto) Eos # (Auto) Baso # (Auto) WBC Differential Differential Comment Sodium Potassium Chloride Carbon Dioxide Anion Gap BUN Creatinine Estimated GFR POC Glucose 127 H 214 H 84 Random Glucose Calcium Total Bilirubin AST ALT Alkaline Phosphatase Total Protein Albumin 09/09/18 09/09/18 09/09/18 12:54 09:33 09:33 WBC 4.5 RBC 4.14 L Hgb 12.1 L Hct 35.5 L MCV 85.6 MCH 29.1 MCHC 34.0 RDW 16.1 Plt Count 135 L MPV 8.3 Neut % (Auto) 56.8 Lymph % (Auto) 26.6 [place] % (Auto) 11.1 H Eos % (Auto) 5.2 H Baso % (Auto) 0.3 Neut # (Auto) 2.6 Lymph # (Auto) 1.2 [place] # (Auto) 0.5 Eos # (Auto) 0.2 Baso # (Auto) 0.0 WBC Differential . Differential Comment Auto diff final Sodium 139 Potassium 4.0 Chloride 101 Carbon Dioxide 31.2 Anion Gap 7 BUN 37 H Creatinine 2.26 H Estimated GFR 33 L POC Glucose 302 H Random Glucose 164 H Calcium 8.8 Total Bilirubin 0.4 AST 31 ALT 28 Alkaline Phosphatase 61 Total Protein 7.1 D Albumin 2.8 L Impressions ITS Impressions Venous Doppler Study 09/02/18 00:00 CONCLUSION: 1. Bilateral subcutaneous soft tissue edema within the bilateral calves without evidence of deep venous thrombosis. Abdomen/Bladder Ultrasound 09/02/18 08:09 CONCLUSION: 1. The renal parenchyma is increased in echogenicity bilaterally. Cortical thickness is normal. No evidence of hydronephrosis. Lines are compatible with chronic medical renal disease. Abdomen X-Ray 09/02/18 14:45 CONCLUSION: Unremarkable study. Chest X-Ray 09/04/18 04:00 CONCLUSION: 1. Persistent left lower lung consolidation. 2. Increasing nonconsolidative infiltrates in the lower right lung. Discharge Plan Discharge Disposition Patient Disposition: 01 Discharge Home Discharge Condition Condition: Fair Physicians Team Primary Care Provider: UNKNOWN, Attending Provider: Jules Rice Other Providers: Michael Carrillo ; Jose Garcia ; Naresh Lopez Rxs /Orders / Referrals /Forms Prescriptions: New carvedilol [Coreg] 6.25 mg Tablet 6.25 mg PO BID 30 Days Qty: 60 RF: 0 atorvastatin [Lipitor] 10 mg Tablet 10 mg PO HS Qty: 30 RF: 0 Continue furosemide [Lasix] 40 mg Tablet 40 mg PO BID RF: 0 potassium chloride 10 mEq Tablet Extended Release 10 meq PO DAILY RF: 0 levothyroxine [Synthroid] 88 mcg Tablet 88 mcg PO DAILY RF: 0 glipizide 5 mg Tablet 5 mg PO DAILY RF: 0 Discontinued amlodipine 5 mg Tablet 5 mg PO DAILY RF: 0 carvedilol 3.125 mg Tablet 3.125 mg PO BID RF: 0 Referrals: UNKNOWN, [Primary Care Provider] - See Instructions Discharge Instructions Patient Printed Instructions: Chest Pain (ED) Status ED Status: Left Department
[2018-09-10 10:27] LABS: Baso % (Auto) 0.5 % (0.0-2.0); Eos # (Auto) 0.2 th/mm3 (0.0-0.4); Eos % (Auto) 4.4 % (0.0-4.0); Hematocrit 34.8 % (39.0-51.0); Hemoglobin 11.8 gm/dL (13.0-17.0); Mean Corpuscular HGB Conc 33.8 % (32.0-36.0); Mean Corpuscular Hemoglobin 28.5 pg (27.0-34.0); Mean Corpuscular Volume 84.4 fL (80.0-100.0); Mean Platelet Volume 8.6 fL (7.0-11.0); Mono # (Auto) 0.3 th/mm3 (0.0-0.9); Mono % (Auto) 8.5 % (0.0-8.0); Neut # (Auto) 2.2 th/mm3 (1.8-7.7); Neut % (Auto) 59.6 % (16.0-70.0); Platelet Count 148 th/mm3 (150-450); Red Blood Count 4.12 mil/mm3 (4.50-5.90); Red Cell Distribution Width 15.9 % (11.6-17.2); White Blood Count 3.7 th/mm3 (4.0-11.0)
[2018-09-10 10:38] VITALS: BP 157/74; PULSE 65; RESP 20; TEMP 97.4
[2018-09-10 10:55] LABS: Alanine Aminotransferase 32 U/L (12-78); Albumin 2.7 g/dL (3.4-5.0); Anion Gap 7 meq/L (5-15); Aspartate Aminotransferase 32 U/L (15-37); Blood Urea Nitrogen 37 mg/dL (7-18); Calcium 8.4 mg/dL (8.5-10.1); Carbon Dioxide 29.5 meq/L (21.0-32.0); Chloride 102 meq/L (98-107); Glomerular Filtration Rate 33 mL/min (>89); Glucose,Random 217 mg/dL (74-106); Potassium 3.9 meq/L (3.5-5.1); Sodium 138 meq/L (136-145)
[2018-09-10 10:57] LABS: Alkaline Phosphatase 59 U/L (45-117); Total Protein 6.9 g/dL (6.4-8.2)
--- NOTE | 2018-09-10 11:47 | P.PNCA ---
Subjective Interval history: No events overnight Feels well Blood pressure better Medications and Allergies Active Medications: Active Medications Acetaminophen (Tylenol) 650 mg PO Q6H PRN PRN Reason: FEVER Last Admin: 09/03/18 00:11 Dose: 650 mg Albuterol (Albuterol Neb (Prn)) 2.5 mg NEB Q2HR NEB PRN PRN Reason: SHORTNESS OF BREATH/WHEEZING Artificial Tears (Tears Naturale Opth Drops) 1 drop EACH EYE Q8H [facility] Last Admin: 09/10/18 08:04 Dose: 1 drop Atorvastatin Calcium (Lipitor) 10 mg PO HS [facility] Last Admin: 09/09/18 21:01 Dose: 10 mg Bisacodyl (Dulcolax Supp) 10 mg RECTAL DAILY PRN PRN Reason: SEVERE CONSITIPATION Carvedilol (Coreg) 12.5 mg PO BID [facility] Last Admin: 09/10/18 08:03 Dose: 12.5 mg Chlorhexidine Gluconate (Peridex 0.12% Oral Kit) 15 ml OROPHARYNG BID@0800, 2000 [facility] Last Admin: 09/10/18 07:14 Dose: Not Given Dextrose (D50w Vial) 50 ml IV.PUSH UNSCH PRN PRN Reason: PER HYPOGLYCEMIA PROTOCOL Enoxaparin Sodium (Lovenox Inj) 30 mg SQ DAILY [facility] Last Admin: 09/10/18 08:04 Dose: 30 mg Fentanyl Citrate (Fentanyl Inj) 50 mcg IV.PUSH Q1H PRN PRN Reason: PAIN SCALE 1 TO 10 Furosemide (Lasix) 40 mg PO BID@0900,1800 [facility] Last Admin: 09/10/18 08:03 Dose: 40 mg Glucagon (Glucagon Inj) 1 mg OTHER PRN PRN PRN Reason: for Hypoglycemia Protocol Nitroglycerin/Dextrose (Nitroglycerin Drip Premix) 50 mg in 250 mls @ 1.5 mls/ hr IV.CONT TITRATE PRN; Protocol PRN Reason: Per Protocol Last Titration: 09/03/18 06:20 Dose: Infused Insulin Aspart (Novolog Insulin Correctional Sugar Inj) 0 unit SQ Q6HR [facility]; Protocol Last Admin: 09/10/18 05:41 Dose: Not Given Lactulose (Lactulose Liq) 30 ml PO DAILY PRN PRN Reason: SEVERE CONSITIPATION Levothyroxine Sodium (Synthroid) 88 mcg PO DAILY@0600 [facility] Last Admin: 09/10/18 06:05 Dose: 88 mcg Miscellaneous Medication () 1 each OROPHARYNG 0000,0400,1200,1600 [facility] Last Admin: 09/10/18 03:12 Dose: Not Given Ondansetron HCl (Zofran Inj) 4 mg IV.PUSH Q6H PRN PRN Reason: NAUSEA OR VOMITING Promethazine HCl (Phenergan Inj) 25 mg IV.CENTRAL Q6H PRN PRN Reason: BREAKTHROUGH NAUSEA Senna/Docusate Sodium (Tahmina-Colace) 1 tab PO BID [facility] Last Admin: 09/10/18 08:03 Dose: 1 tab Sennosides (Senokot) 17.2 mg PO Q12H PRN PRN Reason: Moderate Constipation Sodium Chloride (Ns Flush) 2 ml IV.FLUSH BID [facility] Last Admin: 09/10/18 08:04 Dose: 2 ml Sodium Chloride (Ns Flush) 2 ml IV.FLUSH PRN PRN PRN Reason: FLUSH AFTER USING IV ACCESS Last Admin: 09/02/18 12:09 Dose: 2 ml Terbutaline Sulfate (Brethine Inj) 1 mg SQ UNSCH PRN PRN Reason: For Extravasation Allergies Allergy/AdvReac Type Severity Reaction Status Date / Time aspirin Allergy Severe Bleeding Verified 09/02/18 16:03 diclofenac Allergy Severe Hives Verified 09/02/18 07:58 etodolac Allergy Severe Hives Verified 09/02/18 07:58 flurbiprofen Allergy Severe Hives Verified 09/02/18 07:58 ibuprofen Allergy Severe Hives Verified 09/02/18 07:58 indomethacin Allergy Severe Hives Verified 09/02/18 07:58 ketoprofen Allergy Severe Hives Verified 09/02/18 07:58 ketorolac Allergy Severe Hives Verified 09/02/18 07:58 naproxen Allergy Severe Hives Verified 09/02/18 07:58 NSAIDS (Non-Steroidal Allergy Severe Bleeding Verified 09/02/18 16:03 Anti-Inflamma oxaprozin Allergy Severe Hives Verified 09/02/18 07:58 Home Medications Medication Instructions Recorded Confirmed Type amlodipine 5 mg PO DAILY 09/02/18 09/02/18 History carvedilol 3.125 mg PO BID 09/02/18 09/02/18 History furosemide [Lasix] 40 mg PO BID 09/02/18 09/02/18 History glipizide 5 mg PO DAILY 09/02/18 09/02/18 History levothyroxine [Synthroid] 88 mcg PO DAILY 09/02/18 09/02/18 History potassium chloride 10 meq PO DAILY 09/02/18 09/02/18 History Physical Exam Vital signs: Vital Signs 09/09/18 12:00 09/09/18 13:02 09/09/18 16:00 Temperature 97.3 F L 97.7 F Pulse Rate 63 53 L Respiratory Rate 17 17 Blood Pressure 171/76 H 166/76 H Pulse Oximetry 94 L 94 L 98 09/09/18 17:37 09/09/18 20:00 09/10/18 00:00 Temperature 97.7 F 97.9 F Pulse Rate 67 64 Respiratory Rate 18 18 Blood Pressure 174/80 H 152/77 H Pulse Oximetry 94 L 97 95 09/10/18 04:00 09/10/18 08:00 Temperature 97.8 F 97.4 F L Pulse Rate 61 65 Respiratory Rate 18 20 Blood Pressure 133/60 157/74 H Pulse Oximetry 94 L 92 L Intake & Output 09/09/18 09/10/18 09/10/18 18:59 06:59 18:59 Weight 99.2 kg Narrative: GENERAL: Very pleasant, resting in bed in no acute distress. SKIN: Warm and dry. ENT: Mucous membranes pink and moist. CARDIOVASCULAR: Regular rate and rhythm. S1, S2. RESPIRATORY: Decreased breath sounds. No respiratory distress. On 2 L nasal cannula. GASTROINTESTINAL: Abdomen soft, non-tender, nondistended. MUSCULOSKELETAL: No edema. NEUROLOGICAL: Alert. - Urinary Catheter Management Indwelling Urethral Catheter Cath placed during this visit: yes, but has since been removed by the nurse Reason for continuing: Decision to DC catheter Insertion date: 09/02/18 Insertion time: 06:40 Removal date: 09/02/18 Removal time: 18:00 Results 09/10/18 09:37 09/10/18 09:37 Cardiac Enzymes 09/09/18 09/10/18 Range/Units 09:33 09:37 AST 31 32 (15-37) U/L CBC 09/09/18 09/10/18 Range/Units 09:33 09:37 WBC 4.5 3.7 L (4.0-11.0) th/mm3 RBC 4.14 L 4.12 L (4.50-5.90) mil/mm3 Hgb 12.1 L 11.8 L (13.0-17.0) gm/dL Hct 35.5 L 34.8 L (39.0-51.0) % Plt Count 135 L 148 L (150-450) th/mm3 Neut # (Auto) 2.6 2.2 (1.8-7.7) th/mm3 Lymph # (Auto) 1.2 1.0 (1.0-4.8) th/mm3 [place] # (Auto) 0.5 0.3 (0.0-0.9) th/mm3 Eos # (Auto) 0.2 0.2 (0.0-0.4) th/mm3 Baso # (Auto) 0.0 0.0 (0.0-0.2) th/mm3 Comprehensive Metabolic Panel 09/09/18 09/10/18 Range/Units 09:33 09:37 Sodium 139 138 (136-145) meq/L Potassium 4.0 3.9 (3.5-5.1) meq/L Chloride 101 102 (98-107) meq/L Carbon Dioxide 31.2 29.5 (21.0-32.0) meq/L BUN 37 H 37 H (7-18) mg/dL Creatinine 2.26 H 2.26 H (0.60-1.30) mg/dL Calcium 8.8 8.4 L (8.5-10.1) mg/dL AST 31 32 (15-37) U/L ALT 28 32 (12-78) U/L Alkaline Phosphatase 61 59 (45-117) U/L Total Protein 7.1 D 6.9 (6.4-8.2) g/dL Albumin 2.8 L 2.7 L (3.4-5.0) g/dL Intake and Output 09/09/18 09/10/18 09/10/18 22:59 06:59 14:59 Other: Weight 99.2 kg Assessment and Plan - Assessment (1) NICM (nonischemic cardiomyopathy) Code(s): I42.8 - Other cardiomyopathies Status: Acute Plan: Office chart notes non-ischemic cardiomyopathy; ef last year not as low as seen here though; continue medical mgt; on bb; bushra/arb held for now due to renal failure/low bp's (2) Elevated troponin Code(s): R74.8 - Abnormal levels of other serum enzymes Status: Acute Plan: likely due to chf/ckd; known non-ischemic cardiomyopathy (3) Acute on chronic systolic (congestive) heart failure Code(s): I50.23 - Acute on chronic systolic (congestive) heart failure Status : Acute Plan: on IV lasix, diuresing (4) Respiratory failure requiring intubation Code(s): J96.90 - Respiratory failure, unspecified, unspecified whether with hypoxia or hypercapnia Status: Acute (5) CHF (congestive heart failure) Code(s): I50.9 - Heart failure, unspecified Status: Acute - Plan 1) Pulmonary edema Due to 's illness, patient admits to not taking his meds as he should Fluid overload state Diuresed well Appears compensated Lasix PO 2) Known NICM EF 20-25% Con't BB No BUSHRA-I/Entresto/ARB due to JESSICA on CKD 3) Acute respiratory distress requiring intubation s/p extubation 4) Elevated troponin Most likely Type 2 in the setting of CHF/CKD No plan for ischemic work up Heparin drip stopped 5) HTN 09/10 Better overall 09/09 increase Coreg If still having problems, may benefit from Isosorbide/hydralazine combination, although difficult with patient compliance due to frequent dosing Unable to place on BUSHRA-I/Entresto/ARB due to JESSICA on CKD 6) Cardiovascularly stable for discharge (5) CHF (congestive heart failure) Qualifiers: Heart failure type: unspecified Heart failure chronicity: unspecified Qualified Code(s): I50.9 - Heart failure, unspecified
--- NOTE | 2018-09-10 12:32 | P.PNNP ---
Subjective Interval history: Patient was seen, no distress, no complaints. Patients renal function and K have improved. Patient to be discharged today. <Khushbu Gill - Last Filed: 09/10/18 12:30> Physical Exam Vital signs: Vital Signs 09/09/18 13:02 09/09/18 16:00 09/09/18 17:37 Temperature 97.7 F Pulse Rate 53 L Respiratory Rate 17 Blood Pressure 166/76 H Pulse Oximetry 94 L 98 94 L 09/09/18 20:00 09/10/18 00:00 09/10/18 04:00 Temperature 97.7 F 97.9 F 97.8 F Pulse Rate 67 64 61 Respiratory Rate 18 18 18 Blood Pressure 174/80 H 152/77 H 133/60 Pulse Oximetry 97 95 94 L 09/10/18 08:00 Temperature 97.4 F L Pulse Rate 65 Respiratory Rate 20 Blood Pressure 157/74 H Pulse Oximetry 92 L Intake & Output 09/09/18 09/10/18 09/10/18 18:59 06:59 18:59 Weight 99.2 kg Narrative: GENERAL: Resting in chair in no acute distress. SKIN: Warm and dry. ENT: Mucous membranes pink and moist. CARDIOVASCULAR: Regular rate and rhythm. S1, S2. RESPIRATORY: No respiratory distress. On room air. GASTROINTESTINAL: Abdomen soft, non-tender, nondistended. MUSCULOSKELETAL: No edema. NEUROLOGICAL: Alert. - Urinary Catheter Management Indwelling Urethral Catheter Cath placed during this visit: yes, but has since been removed by the nurse Reason for continuing: Decision to DC catheter Insertion date: 09/02/18 Insertion time: 06:40 Removal date: 09/02/18 Removal time: 18:00 <Khushbu Gill - Last Filed: 09/10/18 12:30> Vital signs: Vital Signs 09/10/18 08:00 09/10/18 11:05 Temperature 97.4 F L Pulse Rate 65 Respiratory Rate 20 Blood Pressure 157/74 H Pulse Oximetry 92 L Pulse Oximetry [Exertion with Oxygen] 95 Pulse Oximetry [Resting on Room Air] 94 L - Urinary Catheter Management Indwelling Urethral Catheter Cath placed during this visit: no <Ayush Del Rio - Last Filed: 09/11/18 07:52> Assessment and Plan - Assessment (1) Chronic kidney disease Code(s): N18.9 - Chronic kidney disease, unspecified Status: Acute Plan: Patient with chronic kidney disease and JESSICA. Patient's renal function has improved, at baseline. Avoid Nephrotoxins. Patient to be discharged today. (2) Respiratory failure requiring intubation Code(s): J96.90 - Respiratory failure, unspecified, unspecified whether with hypoxia or hypercapnia Status: Acute Plan: He had fluid overload and resp. failure. Now extubated. (3) Hypernatremia Code(s): E87.0 - Hyperosmolality and hypernatremia Status: Acute Plan: Resolved. 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 (5) Hypothyroidism Code(s): E03.9 - Hypothyroidism, unspecified Status: Chronic Qualifiers: Hypothyroidism type: unspecified Qualified Code(s): E03.9 - Hypothyroidism , unspecified Plan: Patient on Synthroid. 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 Agree with above assessment and plan. <Ayush Del Rio - Last Filed: 09/11/18 07:52>
[2018-09-10 13:21] VITALS: O2SAT 94
== END 2018-09-10 14:26 | disposition home or self-care (01) ==
LOC: NEPE 06:05 → NEDA 08:10 → HIMC 09:20 → N04 09-06 21:11
PROVIDERS: ADMIT Internal Medicine; ATTEND Internal Medicine
DX: I25.9 Chronic ischemic heart disease, unspecified; I95.9 Hypotension, unspecified; E87.0 Hyperosmolality and hypernatremia; J96.02 Acute respiratory failure with hypercapnia; I21.A1 Myocardial infarction type 2; I42.8 Other cardiomyopathies; Z79.84 Long term (current) use of oral hypoglycemic drugs; E11.22 Type 2 diabetes mellitus with diabetic chronic kidney disease; I50.23 Acute on chronic systolic (congestive) heart failure; N18.9 Chronic kidney disease, unspecified; E03.9 Hypothyroidism, unspecified; E11.65 Type 2 diabetes mellitus with hyperglycemia; J96.01 Acute respiratory failure with hypoxia; I13.0 Hypertensive heart and chronic kidney disease with heart failure and stage 1 through stage 4 chronic kidney disease, or unspecified chronic kidney disease; D69.6 Thrombocytopenia, unspecified; N17.9 Acute kidney failure, unspecified